=== PATIENT | female | born 1940 | race Caucasian/White ===

== ENCOUNTER → 2023-05-08 13:54 | Outpatient (REF) | payer OTHER, SELFPAY | LOC: DHCBC HW 13:54 | PROVIDERS: ATTENDING PHYSICIAN Internal Medicine; FAMILY PHYSICIAN Internal Medicine | DX: I10 Essential (primary) hypertension (principal); R60.9 Edema, unspecified | CPT/HCPCS: 93306 ==

== ENCOUNTER → 2023-06-09 10:08 | Outpatient (REF) | payer OTHER, SELFPAY ==
[2023-06-09 12:26] LABS: % Basophils 0.2 % (0-2); % Eosinophils 1.4 % (0-6); % Immature Granulocytes 0.6 % (0-0.5); % Lymphocytes 10.5 % (20.5-51.1); % Monocytes 6.9 % (1.7-9.3); % Neutrophils 80.4 % (42.2-75.2); Absolute Eosinophils 0.3 10^3/uL (0-0.7); Absolute Immature Granulocytes 0.1 10^3/uL (0-0.05); Absolute Monocytes 1.3 10^3/uL (0.1-0.6); Absolute Neutrophils 15.3 10^3/uL (1.4-6.5); Hematocrit 33.1 % (37.0-47.0); Hemoglobin 10.8 g/dL (12.0-16.0); Mean Corp Hgb Conc. 32.6 g/dL (33.0-37.0); Mean Corpuscular Hgb 32.5 pg (27.0-31.0); Mean Corpuscular Volume 99.7 fL (81.0-99.0); Nucleated Red Blood Cells % 0 %; Platelet Count 400 10^3/uL (130-400); Red Blood Cell Count 3.32 10^6/uL (4.20-5.40); Red Cell Dist. Width 14.9 % (11.5-14.5)
[2023-06-09 12:27] LABS: ALT (SGPT) 17 U/L (0-35); AST (SGOT) 27 U/L (14-36); Albumin 4.2 g/dl (3.5-5.0); Alkaline Phosphatase 96 U/L (38-126); Blood Urea Nitrogen 18 mg/dl (7-17); Calcium 9.5 mg/dl (8.4-10.2); Carbon Dioxide 27 mmol/L (22-30); Chloride 99 mmol/L (98-107); Glucose 98 mg/dl (70-99); HDL Cholesterol 82 mg/dl; LDL Cholesterol, Calculated 65 mg/dl; Potassium 4.3 mmol/L (3.5-5.1); Sodium 135 mmol/L (135-145); Total Bilirubin 0.6 mg/dl (0.2-1.3); Total Cholesterol 163 mg/dl (50-199); Total Protein 7.6 g/dl (6.3-8.2); Triglyceride 83 mg/dl (10-149); Very Low Density Lipoprotein 16 mg/dl (0-30); eGFR > 60.00
== END ==
LOC: HWLAB 10:08
PROVIDERS: ATTENDING PHYSICIAN Internal Medicine
DX: I10 Essential (primary) hypertension (principal); E78.5 Hyperlipidemia, unspecified; D64.9 Anemia, unspecified
CPT/HCPCS: 36415; 80053; 80061; 85025

== ENCOUNTER 2023-06-18 13:42 | Outpatient (RCR) | payer OTHER, SELFPAY | END 2023-06-18 23:59 | disposition home or self-care (01) | LOC: RPT 13:42 | PROVIDERS: ATTENDING PHYSICIAN Internal Medicine; FAMILY PHYSICIAN Internal Medicine | DX: I89.0 Lymphedema, not elsewhere classified (principal); I87.2 Venous insufficiency (chronic) (peripheral); Z73.6 Limitation of activities due to disability; M62.81 Muscle weakness (generalized); R26.81 Unsteadiness on feet; M54.50 Low back pain, unspecified | CPT/HCPCS: 97110; 97163; 97530; 97760 ==

== ENCOUNTER → 2023-07-10 11:38 | Outpatient (REF) | payer OTHER, SELFPAY ==
[2023-07-10 15:12] LABS: % Basophils 0.5 % (0-2); % Eosinophils 4.7 % (0-6); % Immature Granulocytes 0.2 % (0-0.5); % Monocytes 11.7 % (1.7-9.3); % Neutrophils 55.9 % (42.2-75.2); Absolute Eosinophils 0.4 10^3/uL (0-0.7); Absolute Lymphocytes 2.3 10^3/uL (1.2-3.4); Absolute Neutrophils 4.8 10^3/uL (1.4-6.5); Hematocrit 31.1 % (37.0-47.0); Hemoglobin 10.6 g/dL (12.0-16.0); Mean Corp Hgb Conc. 34.1 g/dL (33.0-37.0); Mean Corpuscular Hgb 32.7 pg (27.0-31.0); Mean Platelet Volume 8.9 fL (7.4-10.4); Nucleated Red Blood Cells % 0 %; Platelet Count 375 10^3/uL (130-400); Red Blood Cell Count 3.24 10^6/uL (4.20-5.40); Red Cell Dist. Width 15.2 % (11.5-14.5); White Blood Cell Count 8.6 10^3/uL (4.8-10.8)
== END ==
LOC: HWLAB 11:38
PROVIDERS: ATTENDING PHYSICIAN Internal Medicine
DX: R89.9 Unspecified abnormal finding in specimens from other organs, systems and tissues (principal)
CPT/HCPCS: 36415; 85025

== ENCOUNTER 2023-07-20 13:50 | Outpatient (RCR) | payer OTHER, SELFPAY | END 2023-07-20 23:59 | disposition home or self-care (01) | LOC: RPT 13:50 | PROVIDERS: ATTENDING PHYSICIAN Internal Medicine; FAMILY PHYSICIAN Internal Medicine | DX: I89.0 Lymphedema, not elsewhere classified (principal); I87.2 Venous insufficiency (chronic) (peripheral); Z73.6 Limitation of activities due to disability; M53.3 Sacrococcygeal disorders, not elsewhere classified; M25.571 Pain in right ankle and joints of right foot; M62.81 Muscle weakness (generalized); R26.81 Unsteadiness on feet; M54.50 Low back pain, unspecified; R29.898 Other symptoms and signs involving the musculoskeletal system | CPT/HCPCS: 97110; 97112; 97140; 97530 ==

== ENCOUNTER 2023-08-10 14:05 | Outpatient (RCR) | payer OTHER, SELFPAY | END 2023-08-10 23:59 | disposition home or self-care (01) | LOC: RPT 14:05 | PROVIDERS: ATTENDING PHYSICIAN Internal Medicine; FAMILY PHYSICIAN Internal Medicine | DX: I89.0 Lymphedema, not elsewhere classified (principal); I87.2 Venous insufficiency (chronic) (peripheral); Z73.6 Limitation of activities due to disability; M25.571 Pain in right ankle and joints of right foot; M62.81 Muscle weakness (generalized); M53.3 Sacrococcygeal disorders, not elsewhere classified; R26.81 Unsteadiness on feet; M54.50 Low back pain, unspecified; R29.898 Other symptoms and signs involving the musculoskeletal system | CPT/HCPCS: 97110; 97112; 97530 ==

== ENCOUNTER 2023-09-14 14:19 | Outpatient (RCR) | payer OTHER, SELFPAY | END 2023-09-14 23:59 | disposition home or self-care (01) | LOC: RPT 14:19 | PROVIDERS: ATTENDING PHYSICIAN Internal Medicine; FAMILY PHYSICIAN Internal Medicine | DX: I89.0 Lymphedema, not elsewhere classified (principal); I87.2 Venous insufficiency (chronic) (peripheral); Z73.6 Limitation of activities due to disability; M62.81 Muscle weakness (generalized); R26.81 Unsteadiness on feet; M54.50 Low back pain, unspecified | CPT/HCPCS: 97110; 97112; 97530 ==

== ENCOUNTER → 2023-10-02 10:27 | Outpatient (REF) | payer OTHER, SELFPAY ==
[2023-10-02 11:53] LABS: % Basophils 0.4 % (0-2); % Eosinophils 2.3 % (0-6); % Immature Granulocytes 0.4 % (0-0.5); % Lymphocytes 33.1 % (20.5-51.1); % Monocytes 10.8 % (1.7-9.3); Absolute Eosinophils 0.2 10^3/uL (0-0.7); Absolute Lymphocytes 3.3 10^3/uL (1.2-3.4); Absolute Monocytes 1.1 10^3/uL (0.1-0.6); Absolute Neutrophils 5.2 10^3/uL (1.4-6.5); Hematocrit 33.4 % (37.0-47.0); Hemoglobin 11.3 g/dL (12.0-16.0); Mean Corp Hgb Conc. 33.8 g/dL (33.0-37.0); Mean Corpuscular Hgb 32.2 pg (27.0-31.0); Mean Corpuscular Volume 95.2 fL (81.0-99.0); Nucleated Red Blood Cells % 0 %; Platelet Count 358 10^3/uL (130-400); Red Blood Cell Count 3.51 10^6/uL (4.20-5.40); Red Cell Dist. Width 14.7 % (11.5-14.5); White Blood Cell Count 9.8 10^3/uL (4.8-10.8)
[2023-10-02 12:11] LABS: Urine Albumin Negative (Neg - Trace); Urine Bilirubin Negative (Negative); Urine Character Slightly Cloudy (Clear); Urine Color Yellow; Urine Glucose Negative (Negative); Urine Ketone Negative (Negative); Urine Leukocyte 2+ (Negative); Urine Nitrite Negative (Negative); Urine Occult Blood Negative (Negative); Urine Specific Gravity 1.005 (<1.030); Urine Urobilinogen Negative (Neg - 1+)
[2023-10-02 12:49] LABS: Urine Squamous Cell 0-2 /LPF (Few)
[2023-10-02 12:50] LABS: Urine Bacteria Moderate (Negative); Urine Red Blood Cell 0-2 /HPF (0-2); Urine White Cell 30-40 /HPF (0-5)
[2023-10-02 13:25] LABS: ALT (SGPT) 17 U/L (0-35); AST (SGOT) 31 U/L (14-36); Albumin 4.2 g/dl (3.5-5.0); Alkaline Phosphatase 91 U/L (38-126); Blood Urea Nitrogen 17 mg/dl (7-17); Calcium 9.5 mg/dl (8.4-10.2); Carbon Dioxide 27 mmol/L (22-30); Chloride 100 mmol/L (98-107); Glucose 88 mg/dl (70-99); HDL Cholesterol 77 mg/dl; LDL Cholesterol, Calculated 88 mg/dl; Potassium 4.6 mmol/L (3.5-5.1); Sodium 135 mmol/L (135-145); Total Bilirubin 0.5 mg/dl (0.2-1.3); Total Cholesterol 180 mg/dl (50-199); Total Protein 7.1 g/dl (6.3-8.2); Triglyceride 75 mg/dl (10-149); Very Low Density Lipoprotein 15 mg/dl (0-30); eGFR > 60.00
== END ==
LOC: HWLAB 10:27
PROVIDERS: ATTENDING PHYSICIAN Internal Medicine
DX: N39.0 Urinary tract infection, site not specified (principal); I10 Essential (primary) hypertension; E78.00 Pure hypercholesterolemia, unspecified
CPT/HCPCS: 36415; 80053; 80061; 81003; 81015; 85025; 87077; 87086; 87186

== ENCOUNTER 2023-10-19 11:16 | Outpatient (RCR) | payer OTHER, SELFPAY | END 2023-10-19 23:59 | disposition home or self-care (01) | LOC: RPT 11:16 | PROVIDERS: ATTENDING PHYSICIAN Internal Medicine; FAMILY PHYSICIAN Internal Medicine | DX: I89.0 Lymphedema, not elsewhere classified (principal); I87.2 Venous insufficiency (chronic) (peripheral); M53.3 Sacrococcygeal disorders, not elsewhere classified; Z73.6 Limitation of activities due to disability; M25.571 Pain in right ankle and joints of right foot; R29.898 Other symptoms and signs involving the musculoskeletal system; R26.81 Unsteadiness on feet; M62.81 Muscle weakness (generalized); M54.50 Low back pain, unspecified | CPT/HCPCS: 97110; 97112; 97530 ==

== ENCOUNTER 2023-11-11 13:58 | Outpatient (RCR) | payer OTHER, SELFPAY | END 2023-11-11 23:59 | disposition home or self-care (01) | LOC: RPT 13:58 | PROVIDERS: ATTENDING PHYSICIAN Internal Medicine; FAMILY PHYSICIAN Internal Medicine | DX: I89.0 Lymphedema, not elsewhere classified (principal); I87.2 Venous insufficiency (chronic) (peripheral); M53.3 Sacrococcygeal disorders, not elsewhere classified; Z73.6 Limitation of activities due to disability; M62.81 Muscle weakness (generalized); M25.571 Pain in right ankle and joints of right foot; R29.898 Other symptoms and signs involving the musculoskeletal system; R26.81 Unsteadiness on feet; M54.50 Low back pain, unspecified | CPT/HCPCS: 97110; 97112; 97530 ==

== ENCOUNTER 2023-11-30 14:07 | Outpatient (RCR) | payer OTHER, SELFPAY | END 2023-12-01 10:29 | disposition home or self-care (01) | LOC: RPT 14:07 | PROVIDERS: ATTENDING PHYSICIAN Internal Medicine; FAMILY PHYSICIAN Internal Medicine | DX: I89.0 Lymphedema, not elsewhere classified (principal); I87.2 Venous insufficiency (chronic) (peripheral); Z73.6 Limitation of activities due to disability; M53.3 Sacrococcygeal disorders, not elsewhere classified; M62.81 Muscle weakness (generalized); M25.571 Pain in right ankle and joints of right foot; R29.898 Other symptoms and signs involving the musculoskeletal system; R26.81 Unsteadiness on feet; M54.50 Low back pain, unspecified | CPT/HCPCS: 97110; 97112; 97530 ==

== ENCOUNTER → 2024-01-07 18:11 | Outpatient (REF) | payer OTHER, SELFPAY | LOC: RAD 18:11 | PROVIDERS: ATTENDING PHYSICIAN Nurse Practitioner Adult Health; FAMILY PHYSICIAN Internal Medicine | DX: J47.9 Bronchiectasis, uncomplicated (principal); R05.1 Acute cough | CPT/HCPCS: 71046 ==

== ENCOUNTER → 2024-02-22 11:07 | Outpatient (REF) | payer OTHER, SELFPAY ==
[2024-02-22 16:28] LABS: % Basophils 0.6 % (0-2); % Eosinophils 2.4 % (0-6); % Immature Granulocytes 0.5 % (0-0.5); % Lymphocytes 29.2 % (20.5-51.1); % Monocytes 11.3 % (1.7-9.3); Absolute Basophils 0.1 10^3/uL (0-0.2); Absolute Eosinophils 0.2 10^3/uL (0-0.7); Absolute Lymphocytes 2.4 10^3/uL (1.2-3.4); Absolute Monocytes 0.9 10^3/uL (0.1-0.6); Absolute Neutrophils 4.5 10^3/uL (1.4-6.5); Hematocrit 35.4 % (37.0-47.0); Hemoglobin 11.1 g/dL (12.0-16.0); Mean Corp Hgb Conc. 31.4 g/dL (33.0-37.0); Mean Corpuscular Hgb 31.7 pg (27.0-31.0); Mean Corpuscular Volume 101.1 fL (81.0-99.0); Mean Platelet Volume 9.2 fL (7.4-10.4); Nucleated Red Blood Cells % 0 %; Platelet Count 358 10^3/uL (130-400); Red Cell Dist. Width 14.5 % (11.5-14.5)
[2024-02-22 16:33] LABS: ALT (SGPT) 18 U/L (0-35); AST (SGOT) 30 U/L (14-36); Albumin 4.4 g/dl (3.5-5.0); Alkaline Phosphatase 83 U/L (38-126); Blood Urea Nitrogen 17 mg/dl (7-17); Calcium 9.5 mg/dl (8.4-10.2); Carbon Dioxide 30 mmol/L (22-30); Chloride 98 mmol/L (98-107); Glucose 94 mg/dl (70-99); HDL Cholesterol 80 mg/dl; LDL Cholesterol, Calculated 93 mg/dl; Potassium 4.5 mmol/L (3.5-5.1); Sodium 137 mmol/L (135-145); Total Bilirubin 0.5 mg/dl (0.2-1.3); Total Cholesterol 188 mg/dl (50-199); Total Protein 7.4 g/dl (6.3-8.2); Triglyceride 76 mg/dl (10-149); Very Low Density Lipoprotein 15 mg/dl (0-30); eGFR > 60.00
== END ==
LOC: HWLAB 11:07
PROVIDERS: ATTENDING PHYSICIAN Internal Medicine
DX: I10 Essential (primary) hypertension (principal); E78.00 Pure hypercholesterolemia, unspecified; R73.03 Prediabetes; I50.30 Unspecified diastolic (congestive) heart failure
CPT/HCPCS: 36415; 80053; 80061; 85025

== ENCOUNTER → 2024-06-23 11:20 | Outpatient (REF) | payer OTHER, SELFPAY ==
[2024-06-23 16:45] LABS: % Basophils 0.5 % (0-2); % Eosinophils 2.5 % (0-6); % Immature Granulocytes 0.3 % (0-0.5); % Lymphocytes 32.7 % (20.5-51.1); % Monocytes 12.6 % (1.7-9.3); % Neutrophils 51.4 % (42.2-75.2); Absolute Basophils 0.1 10^3/uL (0-0.2); Absolute Eosinophils 0.2 10^3/uL (0-0.7); Absolute Monocytes 1.2 10^3/uL (0.1-0.6); Absolute Neutrophils 4.7 10^3/uL (1.4-6.5); Hematocrit 33.6 % (37.0-47.0); Hemoglobin 11.1 g/dL (12.0-16.0); Mean Corpuscular Hgb 32.2 pg (27.0-31.0); Mean Corpuscular Volume 97.4 fL (81.0-99.0); Mean Platelet Volume 9.5 fL (7.4-10.4); Nucleated Red Blood Cells % 0 %; Platelet Count 420 10^3/uL (130-400); Red Blood Cell Count 3.45 10^6/uL (4.20-5.40); Red Cell Dist. Width 14.6 % (11.5-14.5); White Blood Cell Count 9.1 10^3/uL (4.8-10.8)
[2024-06-23 16:53] LABS: ALT (SGPT) 16 U/L (0-35); AST (SGOT) 27 U/L (14-36); Alkaline Phosphatase 91 U/L (38-126); Blood Urea Nitrogen 19 mg/dl (7-17); Calcium 9.6 mg/dl (8.4-10.2); Carbon Dioxide 28 mmol/L (22-30); Chloride 99 mmol/L (98-107); Glucose 99 mg/dl (70-99); HDL Cholesterol 74 mg/dl; LDL Cholesterol, Calculated 85 mg/dl; Potassium 4.5 mmol/L (3.5-5.1); Sodium 135 mmol/L (135-145); Total Bilirubin 0.6 mg/dl (0.2-1.3); Total Cholesterol 177 mg/dl (50-199); Total Protein 7.1 g/dl (6.3-8.2); Triglyceride 92 mg/dl (10-149); Very Low Density Lipoprotein 18 mg/dl (0-30); eGFR > 60.00
[2024-06-23 17:23] LABS: TSH Reflex To Free T4 1.11 uIU/ml (0.47-4.68)
== END ==
LOC: HWLAB 11:20
PROVIDERS: ATTENDING PHYSICIAN Internal Medicine
DX: I10 Essential (primary) hypertension (principal); R73.03 Prediabetes; Z12.11 Encounter for screening for malignant neoplasm of colon
CPT/HCPCS: 36415; 80053; 80061; 84443; 85025

== ENCOUNTER → 2024-07-25 10:24 | Outpatient (REF) | payer OTHER, SELFPAY | LOC: HWRAD 10:24 | PROVIDERS: ATTENDING PHYSICIAN Internal Medicine | DX: Z78.0 Asymptomatic menopausal state (principal) | CPT/HCPCS: 77080 ==

== ENCOUNTER 2024-09-02 12:41 | Emergency (ER) | payer OTHER, SELFPAY ==
[2024-09-02 12:44] VITALS: BP 150/92
[2024-09-02 13:15] LABS: % Basophils 0.2 % (0-2); % Eosinophils 2.4 % (0-6); % Immature Granulocytes 0.4 % (0-0.5); % Lymphocytes 22.2 % (20.5-51.1); % Neutrophils 58.8 % (42.2-75.2); Absolute Eosinophils 0.2 10^3/uL (0-0.7); Absolute Monocytes 1.5 10^3/uL (0.1-0.6); Absolute Neutrophils 5.3 10^3/uL (1.4-6.5); Hematocrit 35.9 % (37.0-47.0); Hemoglobin 11.8 g/dL (12.0-16.0); Mean Corp Hgb Conc. 32.9 g/dL (33.0-37.0); Mean Corpuscular Hgb 31.7 pg (27.0-31.0); Mean Corpuscular Volume 96.5 fL (81.0-99.0); Mean Platelet Volume 8.7 fL (7.4-10.4); Nucleated Red Blood Cells % 0 %; Platelet Count 384 10^3/uL (130-400); Red Blood Cell Count 3.72 10^6/uL (4.20-5.40); Red Cell Dist. Width 15.3 % (11.5-14.5); White Blood Cell Count 9.1 10^3/uL (4.8-10.8)
[2024-09-02 13:27] LABS: ALT (SGPT) 19 U/L (0-35); AST (SGOT) 36 U/L (14-36); Albumin 4.2 g/dl (3.5-5.0); Alkaline Phosphatase 81 U/L (38-126); Blood Urea Nitrogen 11 mg/dl (7-17); Calcium 9.3 mg/dl (8.4-10.2); Carbon Dioxide 25 mmol/L (22-30); Chloride 104 mmol/L (98-107); Glucose 112 mg/dl (70-99); Potassium 4.2 mmol/L (3.5-5.1); Sodium 137 mmol/L (135-145); Total Bilirubin 0.4 mg/dl (0.2-1.3); Total Protein 7.4 g/dl (6.3-8.2); eGFR > 60.00
[2024-09-02 13:39] LABS: Troponin I < 0.012 ng/ml
--- NOTE | 2024-09-02 14:55 | ED.GENMED ---
History of Present Illness
General
Chief Complaint: Breathing Problem
Time Seen by Provider: 09/02/24 14:55
History of Present Illness
History of Present Illness:
REVIEW OF OLD RECORDS
- The patient has history of being on CPAP, history of A-fib and CHF. The patient has been seen by physical therapy related to lymphedema as of November 2023. 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
pacemaker was placed at that time. History of Takotsubo cardiomyopathy. And has history of sleep apnea on CPAP.
Note:
CHIEF COMPLAINT(S)
Shortness of breath and vomiting.
HISTORY OF PRESENT ILLNESS
The patient is an 84-year-old female with a history of bronchiectasis for four years, presenting with shortness of breath and vomiting. The symptoms began this morning when the patient was climbing stairs at home, resulting in significant
breathlessness. She also experienced vomiting at the same time. The patients family member noted that she was short of breath and sweating profusely. The patient reported no chest pain or tightness but did mention experiencing a dry cough.
The patient has a history of gastrointestinal upset, including frequent diarrhea, and has been self-medicating with Imodium for over six months. She has been seen previously by her primary care physician, who prescribed antibiotics (Augmentin) and
two courses of prednisone, which seemed to offer temporary relief. There is a pending follow-up appointment with her senior account director later this month.
On examination, there was a subtle wheeze and crackling noise auscultated on the right side of the chest. A chest x-ray was performed, and subtle changes were noted on the right side. Blood work did not show significant abnormalities, specifically,
there were no overt signs of congestive heart failure.
There is no reported weight gain or significant swelling in the legs, although the patient mentions recent lymphedema. The patient has a nebulizer at home, which is used with saline, and she possesses an inhaler. Her oxygen saturation was measured
at 96-97%.
SOCIAL DETERMINANTS AFFECTING HEALTH
The patient is reliant on family support for monitoring her health condition and appointments.
REVIEW OF SYSTEMS
- Respiratory: Shortness of breath, dry cough, wheezing on the right side.
- Gastrointestinal: Frequent diarrhea, vomiting.
- Skin: Profuse sweating.
- Cardiovascular: No chest pain or tightness reported.
PHYSICAL EXAM
- Respiratory: Wheeze and crackling noise on the right side.
- General: Well appearing in no distress
- HEENT: Moist oral mucosa
- Cardiovascular: No murmurs, normal heart rate, regular rhythm, No chest wall tenderness
- Abdomen: Soft with no peritoneal signs, no tenderness
- Neurologic: Excellent strength all extremities, no coordination deficits
- Psychiatric: Appropriate mental status, normal insight and judgement
- Extremities: Nontender, no edema, moves all extremities equally
- Skin: No rash, no lesions
ACUTE
- Shortness of breath
- Vomiting
- Wheezing
CHRONIC
- Bronchiectasis
- Gastrointestinal disturbances (diarrhea)
PLAN
- Administer DuoNeb (albuterol with ipratropium) nebulizer treatment.
- Provide intravenous fluids to address potential dehydration.
- Administer antiemetic for nausea.
- Await radiologists review of the chest x-ray for further evaluation.
DIFFERENTIAL DIAGNOSIS
The Differential Diagnosis includes, in no particular order and is not limited to:
1. Pneumonia
2. Chronic Obstructive Pulmonary Disease exacerbation
3. Congestive heart failure
4. Pulmonary embolism
5. Gastroesophageal reflux disease
6. Anxiety-induced hyperventilation
7. Bronchitis
8. Asthma exacerbation
9. Viral upper respiratory tract infection
10. Hyperthyroidism
RADIOLOGY
- Questionable density at the right base (radiologist suspect scarring), device noted left anterior chest wall
EKG
- Sinus 87, left axis deviation, borderline LVH/IVCD
LABS
- White count normal, hemoglobin 11.8, chemistries normal, troponin less than 0.012, BNP 682 which is similar to level in 2020
UPDATE
09/02/24 - 16:43
Zofran for nausea is in effect, and patients hydration is being ensured, though no alarming results from blood work were noted. An X-ray was reviewed; possible suspect area was identified but thought to be scarring or bronchiectasis-related changes
by the radiologist. Saline nebulizer treatments are ongoing for preventative management due to seasonal allergies and postnasal drip. Despite a previous wheeze in the right lung, current oxygen saturation remains stable in the high 90s, negating
immediate oxygen therapy. Concerns about past severe drops in oxygen levels, high flow oxygen use, and complications treated with prednisone were noted by family, coupled with past ICU treatments possibly linked to undiagnosed flu leading to
pneumonia. The patient exhibits unexplained ongoing anemia but not severe enough for transfusion, coupled with persistent cold sensitivity and fatigue, deviating from her usual high energy levels. Lightheadedness noted upon mild exertion, with
transient drop in pulse oximeter reading, dropped to around 91% though stabilized at 95%. Patient is capable of short ambulation and prefers assistance to the bathroom. Discussion on possible hospital stay due to unresolved symptoms is underway.
09/02/24 - 20:[address] scan results confirmed no presence of a blood clot, but indicated inflammatory and scar-like changes consistent with bronchiectasis, without any acute concerns. Scans also suggested potential enteritis, although no bowel obstruction or
abscess was observed. Despite no acute finding mandating hospitalization, the patient showed concern about going home, possibly influenced by previous family experiences. Oxygen levels with exertion were marginally acceptable at 94%, and there was
discussion of trying nebulized albuterol to aid breathing, as previous steroids had ceased two weeks prior. The option to continue oral antibiotics was discussed but deferred, favoring management with albuterol therapy and follow-up with a pulmonary
specialist.
I had the patient walk in the emergency department and I walked with her. Her sats after exertion remained around 93% on room air and she overall felt improved compared to prior. She no longer feels lightheaded and comfortable with going home.
Past History
Past History
ED Past Medical History: CHF (Cardiomyopathy), GERD, HTN, Hypercholesterolemia, Other (Bronchiolitis, Cardiomyopathy, SVT, Twisted Esophagus,) and Other (sleep apnea, CPAP)
ED Past Surgical History: None
Social History
Tobacco: Non-smoker
Alcohol: Occasional
Drug: None
Personal:
Living: alone
Employment: Retired
Family History
Family History: Other
Phy Exam
Physical Exam
Physical Exam:
See HPI
Scores
Heart Failure Risk
Heart Failure Risk Score: Not Applicable
Course
Orders/Labs/Results
Orders:
Orders
09/02/24 12:42
Electrocardiogram (*1) Urgent
Reason for Study: Shortness of Breath
EKG- Treatment ONCE
09/02/24 12:57
Complete Blood Count/With Diff Urgent
Comprehensive Metabolic Panel Urgent
NT-proBNP Urgent
Comment: ADD ON
Troponin I Urgent
09/02/24 14:58
Add On- LAB Urgent
Tests Added?: bnp
CR Chest - 2 Views Urgent
Comment:
Reason For Exam: sob
09/02/24 15:49
0.9% Sodium Chloride 500 ml [Nss] 500 ml IV BOLUS
Ipratropium/Albuterol Sulfate [Duoneb] 3 ml INH R NOW STA
Ondansetron Injectable [Zofran] 4 mg IV NOW STA
09/02/24 16:43
CT Pe/abd/pel W Urgent
Reason For Exam: hypoxia, h/o bronchietasis; PÉREZ
09/02/24 18:52
Acetaminophen [Tylenol] 1,000 mg .ROUTE .STK-MED ONE
09/02/24 18:54
Acetaminophen [Tylenol] 1,000 mg PO NOW STA
Abnormal Lab Results
09/02/24
12:57
RBC 3.72 L 10^6/uL
(4.20-5.40)
Hgb 11.8 L g/dL
(12.0-16.0)
Hct 35.9 L %
(37.0-47.0)
MCH 31.7 H pg
(27.0-31.0)
MCHC 32.9 L g/dL
(33.0-37.0)
RDW 15.3 H %
(11.5-14.5)
Absolute Monos (auto) 1.5 H 10^3/uL
(0.1-0.6)
Monocytes % 16.0 H %
(1.7-9.3)
Glucose 112 H mg/dl
(70-99)
09/02/24 12:57
09/02/24 12:57
Vital Signs
Initial and Last Documented VS:
Initial Vital Signs
Temp Pulse Resp BP Pulse Ox
36.7 C 97 16 150/92 98
09/02/24 12:44 09/02/24 12:44 09/02/24 12:44 09/02/24 12:44 09/02/24 12:44
Last Documented Vital Signs
Temp Pulse Resp BP Pulse Ox
36.7 C 88 19 138/68 91
09/02/24 12:44 09/02/24 18:58 09/02/24 18:58 09/02/24 18:58 09/02/24 18:58
*Critical Care Note
Total Time (30-74mins, 75-104mins- exclusive of procedures): Not Applicable
ED Attending Note
-
Portions of this chart may have been created with voice recognition software.� Occasional wrong word or��sound alike� substitutions may have occurred due to the inherent limitations of voice recognition software.
Discharge Plan
Departure
Patient Disposition: Home (Routine Discharge)
Date of Disposition: 09/02/24
Time of Disposition: 20:02
Patient with high blood pressure during this ER visit?: Yes
Discharge Problem:
Bronchiectasis
Instructions: Shortness of Breath (Dyspnea) (DC), BLOOD PRESSURE
Prescriptions:
New
albuterol sulfate 2.5 mg/0.5 mL solution for nebulization
2.5 mg inhalation Q6H PRN (Reason: bronchospasm) Qty: 30 0RF
No Action
atorvastatin 10 MG tablet
10 mg PO HS
temazepam 7.5 MG capsule
7.5 mg PO HS
Patient Comments:
10/15/2020: last filled 08/12/20, 90 tabs for 90 days from [facility]
duloxetine 60 MG capsule,delayed release(DR/EC)
60 mg PO DAILY
calcium carbonate-vitamin D3 [Oyster Shell Calcium-Vit D3] 500 MG tablet
1 tab PO BID
cetirizine 10 MG tablet
10 mg PO HSPRN PRN (Reason: alternating w/ Venessa)
famotidine 40 MG tablet
40 mg PO HS
fexofenadine [Venessa] 180 MG tablet
180 mg PO HSPRN PRN (Reason: alternating w/ Zyrtec)
fluticasone propionate 1 SPRAY spray,suspension
1 spray intranasal DAILY
loratadine 10 MG tablet
10 mg PO DAILY
multivitamin with folic acid [Tab-A-Liang] 1 TABLET tablet
1 tab PO DAILY
Cranberry
2 tab PO DAILY
levalbuterol tartrate 1 PUFF HFA aerosol inhaler
1 puff inhalation R Q4HPRN PRN (Reason: sob/cough)
cefdinir [Omnicef] 300 MG capsule
300 mg PO BID Qty: 6 0RF
carvedilol 6.25 MG tablet
6.25 mg PO BID Qty: 1 0RF
diltiazem HCl 180 MG capsule,extended release 24hr
180 mg PO BID Qty: 1 0RF
cephalexin 500 MG capsule
500 mg PO BID Qty: 10 0RF
ondansetron 4 mg Tablet,Disintegrating
4 mg PO BIDPRN PRN (Reason: nausea/vomiting) Qty: 10 0RF
Referrals:
Amber Zapata MD [Family Provider, Internal Medicine]
Activity Restrictions/Additional Instructions:
Patient follow-up with your doctors at [place]. Your white blood cell count is normal. Basic blood work was normal. Troponin level (test for heart attack was negative). BNP level (test for heart failure was very similar to prior). CAT scan of the
chest shows no sign of blood clot:
CTA Chest: The central pulmonary arteries are well-opacified and demonstrate no filling defects to suggest pulmonary embolism. The thoracic aorta is normal in caliber and homogeneous in appearance with some calcific atherosclerotic changes. The
heart is overall mildly enlarged, unchanged, especially the left atrium. There is some patchy opacity in the right upper lobe likely some scarring as a sequela of prior right upper lobe pneumonia. There is some additional thickened linear opacity in
the posterior left upper lobe likely scarring, sequela of prior pneumonia. Some small volume peripheral opacity in the lateral segment of the right middle lobe is also likely scarring, sequela of prior pneumonia. Overall prominent interstitial
markings are noted widespread bilaterally, predominantly peripherally. Some changes of bronchiectasis are noted. There is no new focal parenchymal consolidation, pneumothorax, pleural effusion or pericardial effusion. There is no pneumothorax,
pleural effusion or pericardial effusion. There is no significant hilar, mediastinal or axillary lymphadenopathy. Degenerative changes are seen within the thoracic spine.
ABDOMEN:. Gallbladder is somewhat prominent in size without discrete focal intrinsic abnormality and there are no findings to suggest biliary tract dilatation. There is no focal intrinsic abnormality of the liver, spleen, pancreas or adrenal glands.
There is a subcentimeter low-attenuation lateral left renal lesion too small to characterize. Renal excretion is symmetric. Evaluation of the intestinal tract is markedly limited without oral contrast, without intestinal obstruction or free air.
Some colonic diverticulosis is again noted. There is some fluid-filled nondistended loops of small bowel. No right lower quadrant inflammatory changes are seen. The abdominal aorta is normal in caliber with calcific atherosclerotic changes. There is
no retroperitoneal lymphadenopathy. There are degenerative changes within the lumbar spine.
PELVIS: Pelvic pessary is noted in position. No gross focal abnormality of the incompletely distended urinary bladder is seen. There is no true pelvis free fluid or significant lymphadenopathy. Degenerative changes are seen particularly about both
hips.
Interventions
Interventions:
*Risk Screen - Suicide Last Done: 09/02/24 12:44
*General Assessment Last Done: 09/02/24 16:41
*Neglect/Abuse Screening Last Done: 09/02/24 12:44
*ED- Fall Risk Assessment Last Done: 09/02/24 16:41
*ED COVID-19 Vaccine History Last Done: 09/02/24 16:41
ED- Cardiac Assessment Last Done: 09/02/24 18:34
ED- Pulmonary Assessment Last Done: 09/02/24 18:35
Discharge Date and Time
Print Language: SINHALA
[2024-09-02 15:23] LABS: NT-proBNP 682 pg/ml
[2024-09-02 16:05] VITALS: BP 133/73; BMI 25.8
[2024-09-02] MEDS: ZOFRAN 4 MG IV (16:13)
[2024-09-02] MEDS: NSS 500 IV (16:13)
[2024-09-02] MEDS: DUONEB 3 ML INH (16:14)
[2024-09-02] MEDS: TYLENOL 1000 MG PO (18:54)
[2024-09-02 18:58] VITALS: BP 138/68
[2024-09-02 19:00] VITALS: BP 137/66
== END 2024-09-02 20:15 | disposition home or self-care (01) ==
LOC: EMR 12:41
PROVIDERS: Student in an Organized Health Care Education/Training Program; EMERGENCY PHYSICIAN Emergency Medicine; FAMILY PHYSICIAN Internal Medicine
DX: J47.9 Bronchiectasis, uncomplicated (principal); I11.0 Hypertensive heart disease with heart failure; I50.9 Heart failure, unspecified; I48.91 Unspecified atrial fibrillation; G47.30 Sleep apnea, unspecified
CPT/HCPCS: 99285; 96374; 96361; 94640; 71046; 71275; 74177; 80053; 83880; 84484; 85025; 93005; Q9967

== ENCOUNTER → 2024-10-24 11:08 | Outpatient (REF) | payer OTHER, SELFPAY ==
[2024-10-24 15:58] LABS: Urine Character Clear (Clear)
[2024-10-24 16:00] LABS: Hematocrit 33.9 % (37.0-47.0); Hemoglobin 10.9 g/dL (12.0-16.0); Mean Corp Hgb Conc. 32.2 g/dL (33.0-37.0); Mean Corpuscular Volume 96.9 fL (81.0-99.0); Nucleated Red Blood Cells % 0 %; Platelet Count 416 10^3/uL (130-400); Red Cell Dist. Width 14.3 % (11.5-14.5)
[2024-10-24 16:05] LABS: Urine Red Blood Cell 0-2 /HPF (0-2); Urine Squamous Cell 0-2 /LPF (Few); Urine White Cell 30-40 /HPF (0-5)
[2024-10-24 16:12] LABS: ALT (SGPT) 15 U/L (0-35); AST (SGOT) 26 U/L (14-36); Albumin 4.1 g/dl (3.5-5.0); Alkaline Phosphatase 86 U/L (38-126); Blood Urea Nitrogen 21 mg/dl (7-17); Calcium 9.5 mg/dl (8.4-10.2); Carbon Dioxide 25 mmol/L (22-30); Chloride 101 mmol/L (98-107); Glucose 97 mg/dl (70-99); HDL Cholesterol 62 mg/dl; LDL Cholesterol, Calculated 101 mg/dl; Potassium 4.3 mmol/L (3.5-5.1); Sodium 134 mmol/L (135-145); Total Protein 7.3 g/dl (6.3-8.2); Very Low Density Lipoprotein 19 mg/dl (0-30); eGFR > 60.00
== END ==
LOC: HWLAB 11:08
PROVIDERS: ATTENDING PHYSICIAN Internal Medicine
DX: R39.9 Unspecified symptoms and signs involving the genitourinary system (principal); I10 Essential (primary) hypertension; E78.5 Hyperlipidemia, unspecified; D64.9 Anemia, unspecified
CPT/HCPCS: 36415; 80053; 80061; 81003; 81015; 85025; 87086; 87088; 87186

== ENCOUNTER → 2024-12-26 13:23 | Outpatient (REF) | payer OTHER, SELFPAY ==
[2024-12-26 14:27] LABS: Hematocrit 33.1 % (37.0-47.0); Hemoglobin 10.6 g/dL (12.0-16.0); Mean Corp Hgb Conc. 32.0 g/dL (33.0-37.0); Mean Corpuscular Volume 97.4 fL (81.0-99.0); Nucleated Red Blood Cells % 0 %; Platelet Count 381 10^3/uL (130-400); Red Cell Dist. Width 14.6 % (11.5-14.5)
[2024-12-26 15:19] LABS: ALT (SGPT) 17 U/L (0-35); AST (SGOT) 27 U/L (14-36); Albumin 4.2 g/dl (3.5-5.0); Alkaline Phosphatase 89 U/L (38-126); Blood Urea Nitrogen 13 mg/dl (7-17); Calcium 8.9 mg/dl (8.4-10.2); Carbon Dioxide 27 mmol/L (22-30); Chloride 99 mmol/L (98-107); Glucose 94 mg/dl (70-99); Potassium 4.4 mmol/L (3.5-5.1); Sodium 132 mmol/L (135-145); Total Protein 7.1 g/dl (6.3-8.2); eGFR > 60.00
[2024-12-26 15:25] LABS: C-Reactive Protein 16.60 mg/L (0.0-10.00)
[2024-12-26 17:57] LABS: Rheumatoid Agglutinin Less Than 10 IU (<10 IU)
== END ==
LOC: REG 13:23
PROVIDERS: ATTENDING PHYSICIAN Internal Medicine; FAMILY PHYSICIAN Internal Medicine; OTHER PHYSICIAN Internal Medicine
DX: M15.9 Polyosteoarthritis, unspecified (principal); M25.50 Pain in unspecified joint; M25.60 Stiffness of unspecified joint, not elsewhere classified; M79.7 Fibromyalgia; K52.9 Noninfective gastroenteritis and colitis, unspecified
CPT/HCPCS: 36415; 80053; 83013; 83993; 84443; 85025; 85652; 86140; 86200; 86430; 87045; 87046; 87324; 87328; 87329; 87427; 87449; 89055

== ENCOUNTER → 2025-01-27 11:07 | Outpatient (REF) | payer OTHER, SELFPAY | LOC: HWRCS 11:07 | PROVIDERS: ATTENDING PHYSICIAN Nurse Practitioner; FAMILY PHYSICIAN Internal Medicine | DX: R06.09 Other forms of dyspnea (principal) | CPT/HCPCS: 93306 ==

== ENCOUNTER 2025-02-08 06:34 | Outpatient (RCR) | payer OTHER, SELFPAY | END 2025-02-08 23:59 | disposition home or self-care (01) | LOC: RPT 06:34 | PROVIDERS: ATTENDING PHYSICIAN Internal Medicine; FAMILY PHYSICIAN Internal Medicine | DX: M62.89 Other specified disorders of muscle (principal); R15.2 Fecal urgency; R15.9 Full incontinence of feces; N39.3 Stress incontinence (female) (male); Z73.6 Limitation of activities due to disability; M62.81 Muscle weakness (generalized); N81.4 Uterovaginal prolapse, unspecified; R26.89 Other abnormalities of gait and mobility | CPT/HCPCS: 97163; 97530 ==

== ENCOUNTER 2025-02-18 00:41 | Inpatient (IN) | payer OTHER, SELFPAY ==
[2025-02-17 16:40] VITALS: BP 133/64
[2025-02-17 16:57] LABS: Hematocrit 29.9 % (37.0-47.0); Hemoglobin 10.2 g/dL (12.0-16.0); Mean Corp Hgb Conc. 34.1 g/dL (33.0-37.0); Mean Corpuscular Volume 92.6 fL (81.0-99.0); Nucleated Red Blood Cells % 0 %; Platelet Count 367 10^3/uL (130-400); Red Cell Dist. Width 14.6 % (11.5-14.5)
[2025-02-17 17:24] LABS: ALT (SGPT) 44 U/L (0-35); AST (SGOT) 51 U/L (14-36); Albumin 3.5 g/dl (3.5-5.0); Alkaline Phosphatase 143 U/L (38-126); Blood Urea Nitrogen 17 mg/dl (7-17); Calcium 8.4 mg/dl (8.4-10.2); Carbon Dioxide 23 mmol/L (22-30); Chloride 94 mmol/L (98-107); Glucose 199 mg/dl (70-99); Potassium 3.9 mmol/L (3.5-5.1); Sodium 125 mmol/L (135-145); Total Protein 6.8 g/dl (6.3-8.2); eGFR > 60.00
[2025-02-17 19:03] VITALS: BP 124/84; BMI 25.1
[2025-02-17 20:00] VITALS: BP 118/62
[2025-02-17] MEDS: DUONEB 3 ML INH ×2 (20:31→23:35)
[2025-02-17] MEDS: DECADRON 10 MG IV (20:41)
[2025-02-17] MEDS: ZITHROMAX 500 MG PO (20:41)
[2025-02-17 21:00] VITALS: BP 137/72
[2025-02-17] MEDS: ZOFRAN 4 MG IV (21:13)
[2025-02-17 22:00] VITALS: BP 123/71
--- NOTE | 2025-02-17 22:25 | ED.GENMED ---
History of Present Illness
General
Chief Complaint: Breathing Problem
Source: patient
Exam Limitations: none
Time Seen by Provider: 02/17/25 19:37
Nursing documentation reviewed up to this point in time: agreed with
History of Present Illness
History of Present Illness:
84-year-old female past medical history of A-fib, cardiomyopathy, heart failure, asthma bronchiectasis presenting to the emergency department today with concerns of worsening cough shortness of breath over the past 4 days or so. Started with upper
respiratory symptoms that seem to be consistent with a virus including nasal congestion cough now mainly coughing and shortness of breath over the past day or so. Was started on Augmentin a few days ago by her leather parts matcher. The patient is on
prednisone 10 mg daily for preventative treatment. Denies any significant chest pain no nausea vomiting. Denies any fevers.
Past History
Past History
ED Past Medical History: CHF (Cardiomyopathy), GERD, HTN, Hypercholesterolemia, Other (Bronchiolitis, Cardiomyopathy, SVT, Twisted Esophagus,) and Other (sleep apnea, CPAP)
ED Past Surgical History: None
Social History
Tobacco: Non-smoker
Alcohol: Occasional
Drug: None
Personal:
Living: alone
Employment: Retired
Family History
Family History: Other
Review of Systems
Review of Systems
Allergies reviewed?: Yes
All Other Systems: ROS reviewed and negative except as documented in HPI and ROS
Phy Exam
Physical Exam
Physical Exam:
GENERAL: Alert , in no apparent distress
EYE: pupils equal and reactive
NECK: Supple, no significant adenopathy.
ENT: o/p clr, mmm.
CARDIAC: Regular rate and rhythm .
LUNGS: Inspiratory and expiratory wheeze diffusely.
ABDOMEN: Soft, without focal tenderness, no r/g, no cvat
NEUROLOGICAL: Alert and oriented, no focal neuro deficits
SKIN: Warm and dry, skin intact.
MUSCULOSKELETAL: No edema, well perfused.
PSYCH: Normal and appropriate interaction.
Scores
Heart Failure Risk
Heart Failure Risk Score: Not Applicable
Course
Orders/Labs/Results
Orders:
Orders
02/17/25 16:45
CR Chest - 2 Views Urgent
Comment:
Reason For Exam: respiratory distress
02/17/25 16:50
Complete Blood Count/With Diff Urgent
Comprehensive Metabolic Panel Urgent
02/17/25 20:28
Ipratropium/Albuterol Sulfate [Duoneb] 3 ml .ROUTE .STK-MED ONE
02/17/25 20:29
Azithromycin [Zithromax] 500 mg PO NOW STA
Dexamethasone Sod Phosphate [Decadron] 10 mg IV NOW STA
Ipratropium/Albuterol Sulfate [Duoneb] 3 ml INH R NOW ONE
02/17/25 21:09
Ondansetron Injectable [Zofran] 4 mg .ROUTE .STK-MED ONE
02/17/25 21:13
Ondansetron Injectable [Zofran] 4 mg IV NOW STA
02/17/25 22:19
0.9% Sodium Chloride 1000 ml [Nss] 1,000 ml IV BOLUS
02/17/25 23:26
Ipratropium/Albuterol Sulfate [Duoneb] 3 ml INH R NOW ONE
Abnormal Lab Results
02/17/25
16:50
WBC 17.2 H 10^3/uL
(4.8-10.8)
RBC 3.23 L 10^6/uL
(4.20-5.40)
Hgb 10.2 L g/dL
(12.0-16.0)
Hct 29.9 L %
(37.0-47.0)
MCH 31.6 H pg
(27.0-31.0)
RDW 14.6 H %
(11.5-14.5)
Abs Immat Gran (auto) 0.1 H 10^3/uL
(0-0.05)
Absolute Neuts (auto) 15.0 H 10^3/uL
(1.4-6.5)
Absolute Lymphs (auto) 0.9 L 10^3/uL
(1.2-3.4)
Absolute Monos (auto) 1.1 H 10^3/uL
(0.1-0.6)
Immature Gran % 0.7 H %
(0-0.5)
Neutrophils % 87.3 H %
(42.2-75.2)
Lymphocytes % 5.2 L %
(20.5-51.1)
Sodium 125 L mmol/L
(135-145)
Chloride 94 L mmol/L
(98-107)
Glucose 199 H mg/dl
(70-99)
AST 51 H U/L
(14-36)
ALT 44 H U/L
(0-35)
Alkaline Phosphatase 143 H U/L
(38-126)
02/17/25 16:50
02/17/25 16:50
Vital Signs
Initial and Last Documented VS:
Initial Vital Signs
Temp Pulse Resp BP Pulse Ox
97.8 F 79 18 133/64 94
02/17/25 16:40 02/17/25 16:40 02/17/25 16:40 02/17/25 16:40 02/17/25 16:40
Last Documented Vital Signs
Temp Pulse Resp BP Pulse Ox
97.8 F 79 28 111/56 94
02/17/25 16:40 02/17/25 23:00 02/17/25 23:00 02/17/25 23:00 02/17/25 23:00
MDM/Problems Addressed
MDM/Problems Addressed:
84-year-old female presenting to the emergency department today with concerns of worsening cough and shortness of breath. Currently on Augmentin over the past few days prescribed by her outpatient leather parts matcher. Vital signs on arrival are normal
pulse ox was in the 80s according to family at home. White count of 17.2 sodium low at 125. X-ray without significant acute changes. Patient does have significant wheezing was started on dexamethasone as well as DuoNeb. Patient with ongoing
wheezing despite treatment. Significant shortness of breath with any ambulation plan to admit for further treatment and monitoring.
*Pulse Oximetry
SaO2: 95
Oxygen Mode of Delivery: Room air
Patient hypoxic: no (94)
*Critical Care Note
Total Time (30-74mins, 75-104mins- exclusive of procedures): Not Applicable
ED Attending Note
-
Portions of this chart may have been created with voice recognition software.� Occasional wrong word or��sound alike� substitutions may have occurred due to the inherent limitations of voice recognition software.
Discharge Plan
Departure
Patient Disposition: Admit
Date of Disposition: 02/17/25
Time of Disposition: 23:27
Admit to: Med/Surg
Admit to doctor: Andrae
Presentation/result/management discussed w/ accepting MD/DO: Hospitalist
Patient with high blood pressure during this ER visit?: No
Condition: Good
Covid-19: Not Applicable
Discharge Problem:
Wheeze, Acute hyponatremia
Prescriptions:
No Action
atorvastatin 10 MG tablet
10 mg PO HS
temazepam 7.5 MG capsule
7.5 mg PO HS
Patient Comments:
10/15/2020: last filled 08/12/20, 90 tabs for 90 days from [facility]
duloxetine 60 MG capsule,delayed release(DR/EC)
60 mg PO DAILY
calcium carbonate-vitamin D3 [Oyster Shell Calcium-Vit D3] 500 MG tablet
1 tab PO BID
cetirizine 10 MG tablet
10 mg PO HSPRN PRN (Reason: alternating w/ Venessa)
famotidine 40 MG tablet
40 mg PO HS
fexofenadine [Venessa] 180 MG tablet
180 mg PO HSPRN PRN (Reason: alternating w/ Zyrtec)
fluticasone propionate 1 SPRAY spray,suspension
1 spray intranasal DAILY
loratadine 10 MG tablet
10 mg PO DAILY
multivitamin with folic acid [Tab-A-Liang] 1 TABLET tablet
1 tab PO DAILY
Cranberry
2 tab PO DAILY
levalbuterol tartrate 1 PUFF HFA aerosol inhaler
1 puff inhalation R Q4HPRN PRN (Reason: sob/cough)
cefdinir [Omnicef] 300 MG capsule
300 mg PO BID Qty: 6 0RF
carvedilol 6.25 MG tablet
6.25 mg PO BID Qty: 1 0RF
diltiazem HCl 180 MG capsule,extended release 24hr
180 mg PO BID Qty: 1 0RF
cephalexin 500 MG capsule
500 mg PO BID Qty: 10 0RF
ondansetron 4 mg Tablet,Disintegrating
4 mg PO BIDPRN PRN (Reason: nausea/vomiting) Qty: 10 0RF
albuterol sulfate 2.5 mg/0.5 mL solution for nebulization
2.5 mg inhalation Q6H PRN (Reason: bronchospasm) Qty: 30 0RF
Referrals:
UNKNOWN - PT NOT,INTERVIEWE [Family Provider]
Interventions
Interventions:
*Risk Screen - Suicide Last Done: 02/17/25 16:40
*General Assessment Last Done: 02/17/25 19:04
*Neglect/Abuse Screening Last Done: 02/17/25 19:04
*ED- Fall Risk Assessment Last Done: 02/17/25 19:04
*ED COVID-19 Vaccine History Last Done: 02/17/25 19:04
*ED Influenza Vaccine History Last Done: 02/17/25 19:04
ED- Cardiac Assessment Last Done: 02/17/25 19:30
ED- Pulmonary Assessment Last Done: 02/17/25 19:30
Discharge Date and Time
Print Language: TURKISH
[2025-02-17 23:00] VITALS: BP 111/56
[2025-02-17] MEDS: NSS 1000 IV (23:47)
[2025-02-18] VITALS: BP 131/71
--- NOTE | 2025-02-18 00:21 | HPS.HSE ---
Family Physician
-
Family Physician: INTERVIEWE UNKNOWN - PT NOT
Chief Complaint
-
Cough, SOB
History of Present Illness
Patient is an 84y F with PMH significant for bronchiectasis / asthma, LJ and hypertension who presents to ED complaining of cough, wheezing and SOB. History obtained from patient and family at the bedside. Patient states that she started with
URI symptoms - cough, congestion, etc - on Thursday of this week. Her symptoms have steadily progressed since that time. Her daughter with whom she lives has also been sick with respiratory symptoms.
Patient spoke with her PCP and was prescribed Augmentin on 02/15. Her symptoms have not improved despite this. She is on chronic prednisone (10mg daily) and uses her Xopenex nebs at home with minimal relief.
Today her symptoms were even more severe with significant SOB and wheezing and patient presented to the ED for further evaluation. In the ED, patient received IV steroids, nebs and supplemental O2. Despite multiple treatments, she has persistent
cough and wheezing. Her ambulatory SpO2 was 89% here in the ED.
Patient reports treatment for bronchiectasis. She has prior history of severe pneumonia multiple times in the past.
Medical History
Past Medical History
Past Medical History: Reports Other
Additional Past Medical History:
Bronchiectasis
LJ on CPAP
Hypertension
Symptomatic Bradycardia
Chronic HFpEF
IBS
Anemia of Chronic Disease
Anxiety / Depression
Fibromyalgia / Rheumatologic Syndrome NOS
Past Surgical History: Reports Other
Additional Past Surgical History:
Foot Surgery
Bilateral Breast Biopsies
D&C
T&A
Tubal Ligation
PPM Placement
Carpal Tunnel Surgery
Social History
Tobacco: Non-smoker
Alcohol: None
Drug: None
Family History
Family History: Not pertinent
Allergies / Home Medications
Allergies reflects when Allergies were last updated in [facility] [employer].
Home Medications with original date entered in [facility] [facility]
Allergy/Medication List:
Allergies
Allergy/AdvReac Type Severity Reaction Status Date / Time
bacitracin (From Neosporin Allergy OINTMENT-BL Verified 02/17/25 16:40
([id number])) ISTERS
bacitracin zinc (From Allergy OINTMENT-BL Verified 02/17/25 16:40
Neosporin ([id number])) ISTERS
methylprednisolone (From Allergy DOSE Verified 02/17/25 16:40
Medrol) PACK-SEVERE
REFLUX
neomycin sulfate (From Allergy OINTMENT-BL Verified 02/17/25 16:40
Neosporin ([id number])) ISTERS
oxycodone Allergy percocet Verified 02/17/25 16:40
intolerance
polymyxin B (From Neosporin Allergy OINTMENT-BL Verified 02/17/25 16:40
([id number])) ISTERS
Sulfa (Sulfonamide Allergy Unknown Verified 02/17/25 16:40
Antibiotics)
Home Medications
atorvastatin 10 mg tablet 10 mg PO HS High cholesterol 04/19/15
duloxetine 60 mg capsule,delayed release 60 mg PO DAILY Mental Health/Anxiety 04/19/15
temazepam 7.5 mg capsule 7.5 mg PO HS Sleep 04/19/15
famotidine 40 mg tablet 40 mg PO HS Gastrointestinal issue 10/15/20
carvedilol 6.25 mg tablet 6.25 mg PO BID ##1 10/19/20
diltiazem HCl 180 mg capsule,extended release 24 hr 180 mg PO BID #1 cap 10/19/20
gabapentin 100 mg capsule 100 mg PO HS 02/18/25
levalbuterol HCl 0.63 mg/3 mL solution for nebulization 0.63 mg inhalation Q8HPRN PRN SOB 02/18/25
losartan 25 mg tablet 25 mg PO DAILY 02/18/25
prednisone 5 mg tablet 10 mg PO DAILY 02/18/25
Review of Systems
-
History Source: Patient and Family
A 12 point ROS was completed and negative except as noted: Yes
Constitutional: Reports Fever, Fatigue and Chills
EENT: Reports Sore Throat and Runny Nose
Respiratory: Reports Cough, Trouble Breathing and Other (Wheezing); Denies Hemoptysis
Cardiac: Denies Chest Pain or Palpitations
Abdomen/GI: Reports Nausea; Denies Abdominal Pain, Vomiting or Diarrhea
: Denies Dysuria, Frequency or Flank Pain
Musculoskeletal: Denies Joint Pain or Edema
Neurological: Denies Dizzy or Headache
Psych: Denies Depression or Anxiety
Physical Exam
Vital Signs
Vital Signs
Temp Pulse Resp BP Pulse Ox
97.8 F 88 17 131/71 96
02/17/25 16:40 02/18/25 00:00 02/18/25 00:00 02/18/25 00:00 02/18/25 00:00
Physical Exam
General: Other (84y F in mild distress due to cough / dyspnea. Paroxysms of cough during exam - with deep breathing, talking, etc.)
HEENT: Moist mucous membranes and PERRLA
Respiratory: Other (Diffuse insp / exp wheezing throughout.)
Cardiac: S1/S2 and Tachycardia; No Murmur
GI: Soft, Non Tender, Non Distended and Normal Bowel Sounds
Musculoskeletal: No Clubbing, No Cyanosis and Other (Trace LE edema - L > R.)
Neuro: AO x 3
Laboratory Results
-
02/17/25 16:50
02/17/25 16:50
Laboratory Results
Total Bilirubin 0.4 mg/dl (0.2-1.3) 02/17/25 16:50
AST 51 U/L (14-36) H 02/17/25 16:50
ALT 44 U/L (0-35) H 02/17/25 16:50
Alkaline Phosphatase 143 U/L (38-126) H 02/17/25 16:50
Impression/Plan
-
A/P: Patient is an 84y F with PMH significant for bronchiectasis, LJ on CPAP and hypertension who presents to ED complaining of 5 days of cough, SOB and wheezing.
Bronchiectasis
Asthmatic Bronchitis
- Admit for further evaluation and treatment.
- Patient with ambulatory hypoxemia (89% on room air), paroxysms of cough and persistent wheezing despite ED treatments.
- Continue IV steroids. Nebs. O2 support as needed.
- Cover with abx for now (ceftriaxone / doxycycline).
- Follow for clinical improvement.
- COVID / Flu added to ED work-up.
Hyponatremia
- ? SIADH secondary to pulmonary process.
- Dos not appear grossly volume overloaded by exam, CXR, etc.
- Fluid restriction and follow for improvement in Na levels.
- Check urine studies.
- Consider Nephrology evaluation if no significant improvement.
Abnormal LFTs
- Likely secondary to acute infectious process / possible viral URI.
- No abdominal pain, etc.
- Follow for changes.
LJ on CPAP
- Patient uses nasal pillows at home and declines hospital CPAP machine for tonight.
- Family will bring in own device tomorrow for use.
Chronic HFpEF
- Does not appear grossly volume overloaded by exam.
- Not maintained on chronic diuretic regimen.
- Follow I/Os, daily weights, etc.
- Echo done this month with normal LVEF and mod-severe MR and TR.
Benign Hypertension
- Stable. Continue usual home medications with holding parameters.
Symptomatic Bradycardia
- Stable s/p PPM placement.
Fibromyalgia
Rheumatologic Process
- No acute pain syndrome.
- Patient is maintained on 10mg daily of prednisone for 'inflammation'.
- Hold prednisone while on dexamethasone.
- Continue duloxetine, gabapentin.
Anemia of Chronic Disease
- Stable. Hgb is at / near known baseline.
- Follow for changes.
DVT Prophylaxis: Lovenox
Code Status: Full
[2025-02-18 00:29] LABS: COVID-19 Antigen Negative (Negative)
[2025-02-18 02:03] VITALS: BMI 24.6
[2025-02-18 02:06] VITALS: BP 130/66
[2025-02-18 02:31] VITALS: BMI 24.6
[2025-02-18] MEDS: ROCEPHIN 1000 MG IV (03:24)
[2025-02-18] MEDS: STERILE WATER FOR INJECTION 10 ML IV ×3 (03:25→17:22)
[2025-02-18] MEDS: VENTOLIN NEBULES 2.5 MG INH ×2 (03:38→14:47)
[2025-02-18] MEDS: DECADRON 4 MG IV ×3 (05:45→21:16)
[2025-02-18 07:15] VITALS: BP 135/63
[2025-02-18 07:40] LABS: Hematocrit 28.9 % (37.0-47.0); Hemoglobin 9.9 g/dL (12.0-16.0); Mean Corp Hgb Conc. 34.3 g/dL (33.0-37.0); Mean Corpuscular Volume 93.2 fL (81.0-99.0); Platelet Count 383 10^3/uL (130-400); Red Cell Dist. Width 14.6 % (11.5-14.5); Reticulocyte Count 1.4 % (0.4-2.8)
[2025-02-18 07:59] LABS: Glucose - Point of Care 170 mg/dl (70-99)
[2025-02-18 08:12] LABS: ALT (SGPT) 40 U/L (0-35); AST (SGOT) 36 U/L (14-36); Albumin 3.3 g/dl (3.5-5.0); Alkaline Phosphatase 123 U/L (38-126); Blood Urea Nitrogen 13 mg/dl (7-17); Calcium 8.5 mg/dl (8.4-10.2); Carbon Dioxide 25 mmol/L (22-30); Chloride 98 mmol/L (98-107); Estimated Creatinine Clearance 60 ml/min; Glucose 164 mg/dl (70-99); Potassium 4.2 mmol/L (3.5-5.1); Sodium 129 mmol/L (135-145); Total Protein 6.5 g/dl (6.3-8.2); eGFR > 60.00
[2025-02-18 08:23] LABS: LDH 178 U/L (120-246)
[2025-02-18] MEDS: VIBRAMYCIN 100 MG PO (08:31)
[2025-02-18] MEDS: CARDIZEM CD 180 MG PO ×2 (08:32→20:06)
[2025-02-18] MEDS: COREG 6.25 MG PO ×2 (08:32→20:07)
[2025-02-18] MEDS: CYMBALTA DELAYED RELEASE 60 MG PO (08:33)
[2025-02-18] MEDS: COZAAR 25 MG PO (08:33)
[2025-02-18] MEDS: NOVOLOG FLEXPEN-LOW RESISTANCE 1 UNITS SC ×3 (08:38→17:16)
[2025-02-18 09:22] LABS: Glycohemoglobin (HgbA1c) 6.2 % (4.0-5.9)
--- NOTE | 2025-02-18 09:23 | W.PN.HOSP.TC ---
Addendum entered and electronically signed by Chris Barroso MD 02/18/25 11:15:
#PMR
on prednisone 10mg for past 3 weeks as per will call clerk
no tenderness in temples, no double vision or jaw pain on chewing reported
Original Note:
Today's Communication/Plan
-
See PN
Assessment / Plan
Assessment / Plan
84yo F with recurrent pneumonia 2/2 bronchoectatic disease on chronic PRednisone, Hx of fungal pneumonia, SSS s/p PPM, SVT, DM, Anxiety, HLD, HTN came with 6 days of worsening cough with yellow-colored sputum. Found exacerbation of bronchoectatic
disease with COPD exacerbation and hyponatremia
Scheduled for appt in [facility] pulmonology dept with in Feb
A/P:
#Acute respiratory insufficiency 2/2 COPD exacerbation with significant bonchiectatic disease
Cefepime with high risk for pseudomonal infection pending sputum Cx
COVID-19 and Influenza PCR neg
check Legionella and S/pneumonia urinary Ag
chest PT
Encourage cough, Mucinex started, will consider hypertonic saline
Taper steroids
COnt bronchodialtors
frequent repositioning in bed to allow flem drainage
Pulm consult
Watch for hemoptysis
wean off O2
#HYponatremia
can be 2/2 pulmonary disease
resolving on mild FR
follow NA - target correction of 6mmol/24h
Urine Osm and NA
#Mild transaminitis
improving
check hepatitis panel
#Hyperthyroidism
check FT4
#DM type 2 with neuropahty
Acucchecks, Insulin SS, DM diet
#Anxiety D/O
#Essential HTN
#SSS s/p PPM
#Insomnia
#HLD
cont home meds
#Anemia
anemia w/u
follow H&H
no overt bleeding reported
check FOBT
DVT ppx lovenox
Full code
I have spent at least 59min reviewing chart, test results, communication with consultants and providing direct patient care
Anticipated Discharge: > 48 hours
Subjective/Interval History
-
Date of Service: February 18, 2025
Objective Data
-
Labs:
Laboratory Results
02/18/25
07:07
WBC 10.7
Hgb 9.9 L
Hct 28.9 L
Plt Count 383
Sodium 129 L
Potassium 4.2
Chloride 98
Carbon Dioxide 25
BUN 13
Creatinine 0.6
Glucose 164 H
Calcium 8.5
Total Bilirubin 0.2
AST 36
ALT 40 H
Alkaline Phosphatase 123
Vital Signs:
Vital Signs
Temp Pulse Resp BP Pulse Ox
97.7 F 90 16 133/63 96
02/18/25 07:15 02/18/25 08:32 02/18/25 07:15 02/18/25 08:32 02/18/25 07:15
I&O
02/17/25 02/18/25 02/19/25
06:59 06:59 06:59
Intake Total 240 / 240
Balance 240 / 240
Review of Systems
-
History Source: Patient
All other systems: Reviewed and negative
Respiratory: Reports Cough and Trouble Breathing
Physical Exam
-
General: Comfortable and Appears in Distress
HEENT: Normocephalic and Atraumatic
Respiratory: Wheezes, Rhonchi and Crackles
GI: Soft, Nontender and Nondistended
Musculoskeletal: No Clubbing, No Cyanosis and No Edema
Neuro: Awake, Alert, Oriented and AO x 3
Psych: Calm
[2025-02-18 10:20] LABS: Iron 29 ug/dl (37-170)
[2025-02-18] MEDS: MAXIPIME 2000 MG IV ×2 (10:23→17:20)
[2025-02-18] MEDS: MUCINEX 1200 MG PO ×2 (10:24→20:06)
[2025-02-18 10:30] LABS: Total Iron Binding Capacity 204 ug/dl (265-497)
[2025-02-18 10:56] LABS: Ferritin 246.0 ng/ml (11.1-264.0)
[2025-02-18 11:28] LABS: Folate 19.6 ng/ml (2.76-20); Vitamin B12 962 pg/ml (239-931)
[2025-02-18 11:49] LABS: Glucose - Point of Care 168 mg/dl (70-99)
--- NOTE | 2025-02-18 12:16 | CM ---
Patient seen bedside w/ daughter, initial assessment completed. Patient is an 84y F with PMH significant for bronchiectasis / asthma, LJ and hypertension who presents to ED complaining of cough, wheezing and SOB. Currently on 3L O2.
Patient resides alone in a single story home w/ loft, 2 steps from front and garage entrances. Patient stated her daughter lives w/ her sometimes stating her daughter has a bedroom in the loft. Patient is independent, has RW and rollator that she
doesn't use. Drives (+). Has additional shower seat in bathroom. No home O2. Current w/ OP PT twice a week. Home PT in 2019. No inpatient rehab hx.
Address, points of contact and insurance verified
PCP: Amber Zapata
Pharmacy: [facility]
Plan: Home. Will watch for needs
[2025-02-18 15:15] VITALS: BP 141/63
--- NOTE | 2025-02-18 15:40 | CON.PUL ---
Addendum entered and electronically signed by Denis Carver MD 02/19/25 00:07:
Of note, patient recently submitted a sputum AFB culture on 02/15, and smear was negative (culture showing NGTD). Test was ordered by Dr. Dinora Treviño, Pulmonary, at [facility].
Previously in 2023 she had a sputum Cx that showed heavy growth of MDR- E coli, and scant growth of fungus (no species identified). This strain was sensitive to ertapenem, imipenem, meropenem and zosyn.
Original Note:
Consultation
Consultation Request
Date/Time Consultation Requested: 02/18/2025917
Date/Time Consultation Performed: 02/18/2025954
Requesting Provider: Dr. Barroso
Performing Provider: Dr. Carver
Reason for Consultation: Bronchiectatis flare
Medical History
-
Chief Complaint: Cough, SOB and low oxygen levels
History of Present Illness:
84-year-old female with a past medical history of non-cystic fibrosis bronchiectasis, chronic HFpEF, mitral valve regurgitation, pulmonary hypertension, history of recurrent bronchitis/pneumonia, history of sleep apnea, lichen planus (affecting her
mouth), recurrent UTI, shingles (September 2019), COVID-19 (December 2021), history of enteritis, restrictive lung disease, history of ventricular tachycardia, GERD, fibromyalgia, hypercholesterolemia and hypertension who presented with low oxygen levels.
Patient had seen her PCP on 02/17 and was COVID + flu negative. Patient endorsed shortness of breath with a productive cough. She reports that she was having URI symptoms initially with cough and congestion several days prior to arrival which
progressed. Patient was recently prescribed Augmentin by her PCP on 02/15 but her symptoms did not improve despite this. She is on chronic prednisone at 10 mg daily in the setting of PMR. In the ER she was afebrile with temperature 97.8 �F, pulse
rate 79, respiratory rate 18, BP 133/64 and saturating 94% on room air. Pertinent labs showed leukocytosis to 17.2, Hb 10.2, sodium 125, chloride 94, glucose 199, slightly elevated LFTs, and urine sodium 72. Patient was flu swab negative and
COVID-19 antigen negative. CXR showed no acute cardiopulmonary process. In the ER, she was given 1 L NS 0.9%, Zofran, DuoNebs, Decadron and Zithromax. She was admitted to the hospitalist service for further care, and now pulmonary service
consulted for additional management/recommendations.
when I saw the patient, the patient's daughter, Jannet, was present at bedside. Patient is currently on 3 L/min nasal cannula. She still feels short of breath and hears herself wheezing, which does improve with nebulizers. Has trouble picking up
her phlegm, which is now white. She thinks she started to feel sick about 10 days ago. She currently denies chest pain at rest, DOWD, nausea, fevers or chills.
Of note, patient previously used to follow with our office with Dr. Jama � has not seen us since August 2018.
PMHx: Chronic HFpEF, mitral valve regurgitation, pulmonary hypertension (PASP: 40 mmHg per TTE on 01/27/2025), GERD, fibromyalgia, hypercholesterolemia, diverticulosis, history of pneumococcal pneumonia (2001), history of gastritis, IBS,
hypertension, sciatica, osteoporosis, restrictive lung disease, frequent bouts of bronchitis, history of VT, history of sleep apnea, history of lichen planus (affecting the mouth), history of recurrent UTI, eczema, history of shingles (September 2019),
history of COVID-19 (December 2021), history of bronchiectasis, history of enteritis
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
Past Medical History
Past Medical History: Other (Above as per HPI)
Past Surgical History: Other (Above as per HPI)
Social History
Tobacco: Non-smoker
Alcohol: None
Drug: None
Family History
Family History: CAD (Father), Cancer (Father: Skin cancer; mother: Colon cancer x 2 and skin cancer; maternal aunt: Melanoma), Hypertension (Father + mother) and Other (Mother: A-fib and osteoporosis)
Allergies / Home Medications
Allergies
Allergy/AdvReac Type Severity Reaction Status Date / Time
bacitracin (From Neosporin Allergy OINTMENT-BL Verified 02/17/25 16:40
([id number])) ISTERS
bacitracin zinc (From Allergy OINTMENT-BL Verified 02/17/25 16:40
Neosporin ([id number])) ISTERS
methylprednisolone (From Allergy DOSE Verified 02/17/25 16:40
Medrol) PACK-SEVERE
REFLUX
neomycin sulfate (From Allergy OINTMENT-BL Verified 02/17/25 16:40
Neosporin ([id number])) ISTERS
oxycodone Allergy percocet Verified 02/17/25 16:40
intolerance
polymyxin B (From Neosporin Allergy OINTMENT-BL Verified 02/17/25 16:40
([id number]-[id number])) ISTERS
Sulfa (Sulfonamide Allergy Unknown Verified 02/17/25 16:40
Antibiotics)
Home Medications
�Medication �Instructions �Recorded �Confirmed �Last Taken �Type
atorvastatin 10 mg tablet 10 mg PO HS High cholesterol 04/19/15 02/18/25 10/14/20 History
duloxetine 60 mg capsule,delayed 60 mg PO DAILY Mental 04/19/15 02/18/25 10/15/20 History
release Health/Anxiety
temazepam 7.5 mg capsule 7.5 mg PO HS Sleep 04/19/15 02/18/25 10/14/20 History
famotidine 40 mg tablet 40 mg PO HS Gastrointestinal issue 10/15/20 02/18/25 10/14/20 History
carvedilol 6.25 mg tablet 6.25 mg PO BID ##1 10/19/20 02/18/25 Unknown Rx
diltiazem HCl 180 mg 180 mg PO BID #1 cap 10/19/20 02/18/25 Unknown Rx
capsule,extended release 24 hr
gabapentin 100 mg capsule 100 mg PO HS 02/18/25 02/18/25 Unknown History
levalbuterol HCl 0.63 mg/3 mL 0.63 mg inhalation Q8HPRN PRN SOB 02/18/25 02/18/25 Unknown History
solution for nebulization
losartan 25 mg tablet 25 mg PO DAILY 02/18/25 02/18/25 Unknown History
prednisone 5 mg tablet 10 mg PO DAILY 02/18/25 02/18/25 Unknown History
Review of Systems
-
History Source: Patient
All other systems: Negative unless noted
Vitals / Labs / Diagnostic Testing
Vital Signs
Temp Pulse Resp BP Pulse Ox
97.7 F 90 16 133/63 96
02/18/25 07:15 02/18/25 08:32 02/18/25 07:15 02/18/25 08:32 02/18/25 07:15
Lab Data
02/18/25 07:07
02/18/25 07:07
Microbiology
02/17/25 23:39 Nasal Swab Influenza Types A & B ([facility]) - Final
Negative for Influenza A & B, NAAT
Negative results must be combined with clinical observations
and patient history.
Nucleic Acid Amplification test (NAAT)performed on the
[place] platform.
Diagnostic Testing:
Physical Exam
-
HEENT: Normocephalic and Anicteric
Cardiovascular: S1/S2 and Peripheral Edema (negative)
Respiratory: Wheeze (Bilaterally upon expiration), Rales (Bilaterally), Rhonchi (negative), Non-Labored Respirations, Other (Diminished breath sounds bilaterally with poor inspiratory effort) and Other (Conversational dyspnea)
GI: Soft, Non Distended, Non Tender and Normal Bowel Sounds
Neurology: Awake, Alert, Oriented and Tremors (negative)
Skin: Warm and Dry
General: Respiratory Distress (negative), Comfortable, Fever (negative) and Chills (negative)
Assessment
-
Assessment: 84-year-old female with a past medical history of non-cystic fibrosis bronchiectasis, chronic HFpEF, mitral valve regurgitation, pulmonary hypertension, history of recurrent bronchitis/pneumonia, history of sleep apnea, lichen planus
(affecting her mouth), recurrent UTI, shingles (September 2019), COVID-19 (December 2021), history of enteritis, restrictive lung disease, history of ventricular tachycardia, GERD, fibromyalgia, hypercholesterolemia and hypertension who presented with low
oxygen levels. Patient had seen her PCP on 02/17 and was COVID + flu negative. Patient endorsed shortness of breath with a productive cough. She reports that she was having URI symptoms initially with cough and congestion several days prior to
arrival which progressed. Patient was recently prescribed Augmentin by her PCP on 02/15 but her symptoms did not improve despite this. She is on chronic prednisone at 10 mg daily in the setting of PMR. In the ER she was afebrile with temperature
97.8 �F, pulse rate 79, respiratory rate 18, BP 133/64 and saturating 94% on room air. Pertinent labs showed leukocytosis to 17.2, Hb 10.2, sodium 125, chloride 94, glucose 199, slightly elevated LFTs, and urine sodium 72. Patient was flu swab
negative and COVID-19 antigen negative. CXR showed no acute cardiopulmonary process. In the ER, she was given 1 L NS 0.9%, Zofran, DuoNebs, Decadron and Zithromax. She was admitted to the hospitalist service for further care, and now pulmonary
service consulted for additional management/recommendations.
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
gastritis, IBS, hypertension, sciatica, osteoporosis, restrictive lung disease, frequent bouts of bronchitis, history of VT, history of sleep apnea, history of lichen planus (affecting the mouth), history of recurrent UTI, eczema, history of
shingles (September 2019), history of COVID-19 (December 2021), history of bronchiectasis, history of enteritis
Impression:
#Acute respiratory failure with hypoxia due to acute bronchitis with URI leading to acute bronchiectasis exacerbation
#Acute pulmonary non-CF bronchiectasis � CT on 09/02/2024 shows multifocal areas of mucoid impaction in the bronchioles with improved opacities along the minor fissures bilaterally compared to prior CTA chest in September 2018, with a consolidation in
RML, and bronchiectasis in the subpleural michelle-medial lingula + RML with mild linear opacities in the posteromedial lower lobes (L >R); on prior CT chest from August 2017 there was also a focal area of bronchiectasis within the lingula with
scattered small nodular opacities, suggestive of chronic bronchitis/bronchiolitis in the setting of possible small airway disease
#Chronic anemia
#Chronic hyponatremia (now worse as baseline is usually: 134�137)
#Iron deficiency anemia
#Transaminitis (mild)
#Abnormal TFTs with significantly low TSH and normal free T4, due to subclinical hyperthyroidism vs TSH suppression due to illness
#PMR on chronic prednisone (follows with rheumatology)
#History of restrictive lung disease with moderate gas exchange capacity defect; no evidence of COPD (most recent PFTs 09/01/2018 with T% predicted, post�BD FVC: 76%, DLCO: 55%)
Plan:
- Given her worsening cough with yellow-colored sputum and leukocytosis (albeit on chronic prednisone), I agree with antibiotics and steroid taper
- Currently on Decadron 4 mg IV q8hr and cefepime
- If patient has clinical deterioration then would broaden coverage to cover MRSA
- Need to obtain culture data to check sputum culture now in addition to blood culture
- Supportive care with mucolytics (mucinex); could also add normal saline nasal spray
- Will add scheduled DuoNebs with nebulized 3% NS (which she takes at home BID) to assist with expectoration; use prn nebs for breakthrough symptoms
- Acapella
- Will trial vest therapy
- Up OOB as tolerated as light activity/ambulation will also help her mobilize secretions better
- Of note, based on prior PFT studies, she has no evidence of an obstructive lung defect, hence she does not have COPD
- I personally reviewed her CT chest imaging and compared studies as recent as August 2024 with studies as distant as October 2007
- She has multifocal areas of mucoid impaction in her bronchioles with persistent subpleural bronchiectasis in the RML + lingula, worsened compared to imaging in 2018, and there is evidence of chronic bronchitis/bronchiolitis with possible small
airways disease; it appears that she has had RML/lingula bronchiectasis since as early as October 2007
- It appears that throughout the years, her subpleural bronchiectatic disease in the lingula + RML have persisted and has been slowly worsening
- Previous sputum culture in September 2018 was positive for Aspergillus fumigatus - -> she was reportedly treated for this at [facility] (per the patient and daughters x2, present during this encounter)
- Prior CTD/ANCA panel was negative; prior IgE WNL at 37 in September 2018
- No evidence of an acute process on CXR, as it appears stable compared to prior CXR in August 2024
- Depending on her clinical recovery, it would not be unreasonable to perform bronchoscopy for lower respiratory microbiological sampling
- If she does not improve with antibiotics, then we should repeat CT chest
- As stated above, obtain sputum culture if patient can produce a decent sample
- Legionella + strep pneumoniae urine antigens are both negative
- Trend WBC and monitor temperature curve
- Maintain SpO2 >90-94% with supplemental O2, weaning down as tolerated
- Incentive spirometer encouraged q1hr while awake
- Replete electrolytes with K>4, Mg>2
- Trend H/H and transfuse if needed to keep Hb>7g/dL; keep plt>20k, unless there is concern for bleeding then keep plt>50k
- Maintain euglycemia with goal BG >100 and <180
- DVT ppx: LMWH
She previously followed with our office via Dr. Jama � has not seen us since August 2018. She now follows with Pulmonology through [facility] via Dr. Joseph Sorenson. Next appointment is next month. She is welcome to also follow with us in [facility] office
going forward if she wishes - I will leave my office info in her chart so she can decide herself.
Pulmonary service will continue to follow along.
Data:
CXR 02/17/2025: Stable radiographic appearance. No evidence of active cardiopulmonary disease.
CTA chest/abdomen/pelvis 09/02/2024:
No evidence of central pulmonary embolism.
Areas of opacity in the right upper lobe, left upper lobe and right middle lobe overall smaller in volume in comparison to remote prior CTA chest, most likely representing some residual areas of scarring.
Some prominent interstitial markings throughout the lungs bilaterally, predominantly peripherally which may all be chronic although acute superimposed interstitial edema/pneumonitis superimposed upon some chronic interstitial changes cannot be
excluded. Some changes of bronchiectasis also suspected. No pneumothorax or pleural effusion.
Some nondistended fluid-filled loops of small bowel, nonspecific. Cannot exclude mild small bowel enteritis.
Colonic diverticulosis. No intestinal obstruction or free air.
Subcentimeter low-attenuation left renal lesion too small to characterize.
Pelvic pessary in position.
Total time spent today was 57 minutes for this encounter. Time includes reviewing laboratory test/imaging results, reviewing pertinent medical records, obtaining and reviewing medical history, performing an appropriate exam, ordering medications,
tests and procedures. Time also includes documentation of this encounter, coordinating patient care and communicating with other healthcare professionals. Total time does not include separately billed tests performed on this date of service.
[2025-02-18 16:36] LABS: Glucose - Point of Care 182 mg/dl (70-99)
[2025-02-18] MEDS: LOVENOX 40 MG SC (17:16)
[2025-02-18 19:13] LABS: Hepatitis B Surface Antigen Negative (Negative)
[2025-02-18] MEDS: DUONEB 3 ML INH (19:29)
[2025-02-18 19:32] LABS: Hepatitis C Antibody Negative (Negative)
[2025-02-18] MEDS: PEPCID 40 MG PO (21:16)
[2025-02-18] MEDS: RESTORIL 7.5 MG PO (21:17)
[2025-02-18] MEDS: LIPITOR 10 MG PO (21:17)
[2025-02-18] MEDS: NEURONTIN 100 MG PO (21:17)
[2025-02-18] MEDS: SODIUM CHLORIDE 3% FOR INHALATION 1 VIAL INH (21:19)
[2025-02-18 21:26] LABS: Glucose - Point of Care 168 mg/dl (70-99)
[2025-02-18 23:00] VITALS: BP 117/64
[2025-02-18] MEDS: TUMS CHEWABLE TABLET 400 MG PO (23:56)
[2025-02-19] MEDS: STERILE WATER FOR INJECTION 10 ML IV ×3 (02:00→17:48)
[2025-02-19] MEDS: MAXIPIME 2000 MG IV ×3 (02:00→17:48)
[2025-02-19] MEDS: DECADRON 4 MG IV ×3 (05:37→21:20)
[2025-02-19 05:42] VITALS: BMI 24.2
[2025-02-19] MEDS: SODIUM CHLORIDE 3% FOR INHALATION 1 VIAL INH ×4 (07:29→19:03)
[2025-02-19] MEDS: DUONEB 3 ML INH ×4 (07:30→19:04)
[2025-02-19] MEDS: COREG 6.25 MG PO ×2 (07:58→21:18)
[2025-02-19] MEDS: MUCINEX 1200 MG PO ×2 (07:58→21:18)
[2025-02-19] MEDS: CARDIZEM CD 180 MG PO ×2 (07:58→21:18)
[2025-02-19] MEDS: CYMBALTA DELAYED RELEASE 60 MG PO (07:59)
[2025-02-19 08:00] VITALS: BP 145/69
[2025-02-19 08:00] LABS: Hematocrit 29.0 % (37.0-47.0); Hemoglobin 9.8 g/dL (12.0-16.0); Mean Corp Hgb Conc. 33.8 g/dL (33.0-37.0); Mean Corpuscular Volume 92.1 fL (81.0-99.0); Nucleated Red Blood Cells % 0 %; Platelet Count 416 10^3/uL (130-400); Red Cell Dist. Width 14.6 % (11.5-14.5)
[2025-02-19] MEDS: METAMUCIL, KONSYL 1 PACKET PO (08:05)
[2025-02-19] MEDS: COZAAR 25 MG PO (08:05)
[2025-02-19] MEDS: LACTAID 1 CAPSULE PO ×3 (08:09→17:42)
[2025-02-19] MEDS: TYLENOL 650 MG PO (08:09)
[2025-02-19 08:19] LABS: Glucose - Point of Care 143 mg/dl (70-99)
[2025-02-19] MEDS: NOVOLOG FLEXPEN-LOW RESISTANCE SC ×2 (08:20→17:43)
[2025-02-19 08:24] LABS: ALT (SGPT) 52 U/L (0-35); AST (SGOT) 45 U/L (14-36); Albumin 3.4 g/dl (3.5-5.0); Alkaline Phosphatase 102 U/L (38-126); Blood Urea Nitrogen 21 mg/dl (7-17); Calcium 9.0 mg/dl (8.4-10.2); Carbon Dioxide 23 mmol/L (22-30); Chloride 102 mmol/L (98-107); Estimated Creatinine Clearance 60 ml/min; Glucose 135 mg/dl (70-99); Potassium 4.8 mmol/L (3.5-5.1); Sodium 130 mmol/L (135-145); Total Protein 6.6 g/dl (6.3-8.2); Uric Acid 4.1 mg/dl (2.5-6.2); eGFR > 60.00
--- NOTE | 2025-02-19 11:31 | W.PN.HOSP.TC ---
Today's Communication/Plan
-
leukocytosis worsened, but also on steroids - cont to follow as clinically patient is improving
Assessment / Plan
Assessment / Plan
84yo F with recurrent pneumonia 2/2 bronchiectatic disease, PMR on chronic Prednisone, Hx of fungal pneumonia, SSS s/p PPM, SVT, DM, Anxiety, HLD, HTN came with 6 days of worsening cough with yellow-colored sputum. Found exacerbation of
bronchiectatic disease with COPD exacerbation and hyponatremia
Scheduled for appt in [facility] pulmonology dept with in Feb
A/P:
#Acute respiratory insufficiency 2/2 COPD exacerbation with significant bronchiectatic disease
Cefepime with high risk for pseudomonal infection pending sputum Cx
COVID-19 and Influenza PCR neg
check Legionella and S/pneumonia urinary Ag
chest PT
Encourage cough, Mucinex, hypertonic saline
Taper steroids
COnt bronchodilators
frequent repositioning in bed to allow flegm drainage
Pulm consult
Watch for hemoptysis
wean off O2
#Hyponatremia
can be 2/2 pulmonary disease
resolving on mild FR
follow NA - target correction of 6mmol/24h
SIDH 2/2 lung disease
#Mild transaminitis
improving
hepatitis panel neg
#Hyperthyroidism, subclinical
repeat TFT in 2-3 weeks with PCP
#DM type 2 with neuropathy
Acucchecks, Insulin SS, DM diet
#Anxiety D/O
#Essential HTN
#SSS s/p PPM
#Insomnia
#HLD
cont home meds
#Anemia
anemia w/u
follow H&H
no overt bleeding reported
check FOBT
DVT ppx lovenox
Full code
I have spent at least 51min reviewing chart, test results, communication with consultants and providing direct patient care
Anticipated Discharge: > 48 hours
Subjective/Interval History
-
Date of Service: February 19, 2025
Objective Data
-
Labs:
Laboratory Results
02/19/25
07:36
WBC 21.0 H
Hgb 9.8 L
Hct 29.0 L
Plt Count 416 H
Sodium 130 L
Potassium 4.8
Chloride 102
Carbon Dioxide 23
BUN 21 H
Creatinine 0.6
Glucose 135 H
Calcium 9.0
Total Bilirubin 0.5
AST 45 H
ALT 52 H
Alkaline Phosphatase 102
Vital Signs:
Vital Signs
Temp Pulse Resp BP Pulse Ox
97.4 F 91 18 145/69 93
02/19/25 08:00 02/19/25 08:00 02/19/25 08:00 02/19/25 08:00 02/19/25 08:59
I&O
02/18/25 02/19/25 02/20/25
06:59 06:59 06:59
Intake Total 240 / 240 600 / 600
Balance 240 / 240 600 / 600
Review of Systems
-
History Source: Patient
All other systems: Reviewed and negative
Respiratory: Reports Cough
Physical Exam
-
General: Well Nourished and No Apparent Distress
HEENT: Normocephalic
Respiratory: Wheezes and Rales
GI: Soft, Nontender and Nondistended
Neuro: Awake, Alert, Oriented and AO x 3
Psych: Calm
[2025-02-19 12:21] LABS: Glucose - Point of Care 207 mg/dl (70-99)
[2025-02-19] MEDS: NOVOLOG FLEXPEN-LOW RESISTANCE 2 UNITS SC (12:39)
[2025-02-19 13:11] VITALS: O2SAT 94
[2025-02-19] MEDS: ANESTHETIC LOZENGE 1 LOZENGE PO (15:18)
--- NOTE | 2025-02-19 16:32 | W.PN.PUL3 ---
Today's Communication / Plan
-
Antibiotics
Pulmonary toilet with DuoNebs, nebulized 3%, vest and Acapella
Aspiration precautions
Goal SpO2 >90-94%, using O2 if needed (currently on room air as of 02/19)
PT/OT, as tolerated
If she fails to improve or if she worsens then would be prudent and arrange for bronchoscopy for lower respiratory microbiological sampling (+ CT chest prior to bronch)
Outpatient AFB sputum culture shows NGTD ([facility])
Systemic steroids, weaning as she clinically improves
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
Assessment
-
Assessment: 84-year-old female with a past medical history of non-cystic fibrosis bronchiectasis, chronic HFpEF, mitral valve regurgitation, pulmonary hypertension, history of recurrent bronchitis/pneumonia, history of sleep apnea, lichen planus
(affecting her mouth), recurrent UTI, shingles (September 2019), COVID-19 (December 2021), history of enteritis, restrictive lung disease, history of ventricular tachycardia, GERD, fibromyalgia, hypercholesterolemia and hypertension who presented with low
oxygen levels. Patient had seen her PCP on 02/17 and was COVID + flu negative. Patient endorsed shortness of breath with a productive cough. She reports that she was having URI symptoms initially with cough and congestion several days prior to
arrival which progressed. Patient was recently prescribed Augmentin by her PCP on 02/15 but her symptoms did not improve despite this. She is on chronic prednisone at 10 mg daily in the setting of PMR. In the ER she was afebrile with temperature
97.8 �F, pulse rate 79, respiratory rate 18, BP 133/64 and saturating 94% on room air. Pertinent labs showed leukocytosis to 17.2, Hb 10.2, sodium 125, chloride 94, glucose 199, slightly elevated LFTs, and urine sodium 72. Patient was flu swab
negative and COVID-19 antigen negative. CXR showed no acute cardiopulmonary process. In the ER, she was given 1 L NS 0.9%, Zofran, DuoNebs, Decadron and Zithromax. She was admitted to the hospitalist service for further care, and now pulmonary
service consulted for additional management/recommendations.
Chronic conditions POWDER HAND: Chronic HFpEF, mitral valve regurgitation, pulmonary hypertension (PASP: 40 mmHg per TTE on 01/27/2025), GERD, fibromyalgia, hypercholesterolemia, diverticulosis, history of pneumococcal pneumonia (2001), history of
gastritis, IBS, hypertension, sciatica, osteoporosis, restrictive lung disease, frequent bouts of bronchitis, history of VT, history of sleep apnea, history of lichen planus (affecting the mouth), history of recurrent UTI, eczema, history of
shingles (September 2019), history of COVID-19 (December 2021), history of bronchiectasis, history of enteritis
Impression:
#Acute respiratory failure with hypoxia due to acute bronchitis with URI leading to acute bronchiectasis exacerbation
#Acute pulmonary non-CF bronchiectasis � CT on 09/02/2024 shows multifocal areas of mucoid impaction in the bronchioles with improved opacities along the minor fissures bilaterally compared to prior CTA chest in September 2018, with a consolidation in
RML, and bronchiectasis in the subpleural michelle-medial lingula + RML with mild linear opacities in the posteromedial lower lobes (L >R); on prior CT chest from August 2017 there was also a focal area of bronchiectasis within the lingula with
scattered small nodular opacities, suggestive of chronic bronchitis/bronchiolitis in the setting of possible small airway disease
#Chronic anemia
#Chronic hyponatremia (now worse as baseline is usually: 134�137)
#Iron deficiency anemia
#Transaminitis (mild)
#Abnormal TFTs with significantly low TSH and normal free T4, due to subclinical hyperthyroidism vs TSH suppression due to illness
#PMR on chronic prednisone (follows with rheumatology)
#History of restrictive lung disease with moderate gas exchange capacity defect; no evidence of COPD (most recent PFTs 09/01/2018 with T% predicted, post�BD FVC: 76%, DLCO: 55%)
Plan:
- Given her worsening cough with yellow-colored sputum and leukocytosis (albeit on chronic prednisone), I agree with antibiotics and steroid taper
- Currently on Decadron 4 mg IV q8hr - wean steroids as she clinically improves
- Continue Abx with cefepime
- If she does not improve with antibiotics, then we should repeat CT chest
- Legionella + strep pneumoniae urine antigens are both negative
- Trend WBC and monitor temperature curve
- If patient has clinical deterioration then would broaden coverage to cover MRSA
- Follow up sputum and blood cultures (NGTD)
- Supportive care with mucolytics (mucinex); could also add normal saline nasal spray
- Continue DuoNebs with nebulized 3% NS (which she takes at home BID) to assist with expectoration; use prn nebs for breakthrough symptoms
- Acapella
- Continue vest therapy
- Up OOB as tolerated as light activity/ambulation will also help her mobilize secretions better
- Of note, based on prior PFT studies, she has no evidence of an obstructive lung defect, hence she does not have COPD
- I personally reviewed her CT chest imaging and compared imaging studies as recent as August 2024 to studies as distant as October 2007
- She has multifocal areas of mucoid impaction in her bronchioles with persistent subpleural bronchiectasis in the RML + lingula, worsened compared to imaging in 2018, and there is evidence of chronic bronchitis/bronchiolitis with possible small
airways disease; it appears that she has had RML/lingula bronchiectasis since as early as October 2007
- It appears that throughout the years, her subpleural bronchiectatic disease in the lingula + RML have persisted and has been slowly worsening
- Previous sputum culture in September 2018 was positive for Aspergillus fumigatus - -> she was reportedly treated for this at [place] (per the patient and daughters x2, present during this encounter)
- Recent outpatient AFB sputum Cx shows NGTD ([facility] - collected 02/15)
- Prior CTD/ANCA panel was negative; prior IgE WNL at 37 in September 2018
- No evidence of an acute process on CXR, as it appears stable compared to prior CXR in August 2024
- Depending on her clinical recovery, it would not be unreasonable to perform bronchoscopy for lower respiratory microbiological sampling if she fails to improve
- Maintain SpO2 >90-94% with supplemental O2 if needed
- Incentive spirometer encouraged q1hr while awake
- Replete electrolytes with K>4, Mg>2
- Trend H/H and transfuse if needed to keep Hb>7g/dL; keep plt>20k, unless there is concern for bleeding then keep plt>50k
- Maintain euglycemia with goal BG >100 and <180
- DVT ppx: LMWH
She previously followed with our office via Dr. Jama � has not seen us since August 2018. She now follows with Pulmonology through [place] via Dr. Joseph Sorenson. Next appointment is next month. She is welcome to also follow with us in [facility] office
going forward if she wishes - I will leave my office info in her chart so she can decide herself.
Pulmonary service will continue to follow along.
Data:
CXR 02/17/2025: Stable radiographic appearance. No evidence of active cardiopulmonary disease.
CTA chest/abdomen/pelvis 09/02/2024:
No evidence of central pulmonary embolism.
Areas of opacity in the right upper lobe, left upper lobe and right middle lobe overall smaller in volume in comparison to remote prior CTA chest, most likely representing some residual areas of scarring.
Some prominent interstitial markings throughout the lungs bilaterally, predominantly peripherally which may all be chronic although acute superimposed interstitial edema/pneumonitis superimposed upon some chronic interstitial changes cannot be
excluded. Some changes of bronchiectasis also suspected. No pneumothorax or pleural effusion.
Some nondistended fluid-filled loops of small bowel, nonspecific. Cannot exclude mild small bowel enteritis.
Colonic diverticulosis. No intestinal obstruction or free air.
Subcentimeter low-attenuation left renal lesion too small to characterize.
Pelvic pessary in position.
Total time spent today was 41 minutes for this encounter. Time includes reviewing laboratory test/imaging results, reviewing pertinent medical records, obtaining and reviewing medical history, performing an appropriate exam, ordering medications,
tests and procedures. Time also includes documentation of this encounter, coordinating patient care and communicating with other healthcare professionals. Total time does not include separately billed tests performed on this date of service.
Subjective Data
-
Date of Service:
Date of Service: February 19, 2025
Chief Complaint: Pulmonary Follow Up
Subjective:
Patient was seen and evaluated earlier this afternoon (late note entry). Patient is feeling better. The vest is helping her to bring up the phlegm she says but only mildly. Currently on room air breathing comfortably. Afebrile overnight.
Review of Systems
General: Other (Negative unless mentioned above)
Objective Data
Data Reviewed
Vital Signs / I&O / Oxygen:
Vital Signs
Temp Pulse Resp BP Pulse Ox
97.4 F 91 18 145/69 93
02/19/25 08:00 02/19/25 08:00 02/19/25 08:00 02/19/25 08:00 02/19/25 08:59
Intake and Output
02/18/25 02/19/25 02/20/25
06:59 06:59 06:59
Intake Total 240 / 240 600 / 600
Balance 240 / 240 600 / 600
SaO2 93
Nasal Cannula flow liters per 2
minute
Physical Exam
General: Respiratory Distress (n), Comfortable, Chills (n), Sweats (n) and Other (elderly female, in NAD with no conversational dyspnea)
HEENT: Normocephalic and Anicteric
Cardiovascular: S1-S2 and Peripheral Edema (n)
Respiratory: Wheeze, Crackles, Rhonchi (n), Non-Labored Respirations and Other (diminished breath sounds bilaterally)
GI: Soft, Non Distended, Non Tender and Normal Bowel Sounds
Neurology: Awake, Alert, Oriented and Tremors (n)
Skin: Warm, Dry, Cyanosis (n) and Jaundice (n)
Labs/Micro/Reports
Lab Data
02/19/25 07:36
02/19/25 07:36
Microbiology
02/18/25 12:02 Urine Legionella Urinary Antigen - Final
Negative for Legionella pneumophila Serogroup 1 antigen.
A negative result does not rule out the possiblity of
Legionella infection due to other serogroups or species of
Legionella. Clinical correlation is recommended.
02/18/25 12:02 Urine Streptococcus pneumoniae Antigen (M - Final
Negative for Streptococcus pneumoniae antigen.
A negative result does not exclude infection with
Streptococcus pneumoniae. Clinical correlation is
recommended.
02/17/25 23:39 Nasal Swab Influenza Types A & B ([facility]) - Final
Negative for Influenza A & B, NAAT
Negative results must be combined with clinical observations
and patient history.
Nucleic Acid Amplification test (NAAT)performed on the
[employer] platform.
[2025-02-19 16:38] VITALS: BP 92/61
[2025-02-19 17:19] LABS: Glucose - Point of Care 147 mg/dl (70-99)
[2025-02-19] MEDS: LOVENOX SC (17:47)
[2025-02-19] MEDS: SODIUM CHLORIDE 3% FOR INHALATION INH (19:09)
[2025-02-19 20:56] LABS: Glucose - Point of Care 214 mg/dl (70-99)
[2025-02-19] MEDS: PEPCID 40 MG PO (21:18)
[2025-02-19] MEDS: LIPITOR 10 MG PO (21:18)
[2025-02-19] MEDS: RESTORIL 7.5 MG PO (21:19)
[2025-02-19] MEDS: NEURONTIN 100 MG PO (21:19)
[2025-02-19 23:34] VITALS: BP 120/66
[2025-02-20] MEDS: STERILE WATER FOR INJECTION 10 ML IV ×3 (01:19→17:26)
[2025-02-20] MEDS: MAXIPIME 2000 MG IV ×3 (01:19→17:26)
[2025-02-20] MEDS: DECADRON 4 MG IV ×2 (05:54→14:40)
[2025-02-20] MEDS: TYLENOL 650 MG PO ×2 (05:59→19:00)
[2025-02-20] MEDS: TUMS CHEWABLE TABLET 400 MG PO (05:59)
[2025-02-20 06:00] VITALS: BMI 24.5
[2025-02-20 07:30] VITALS: BP 104/70
[2025-02-20 07:39] LABS: Glucose - Point of Care 151 mg/dl (70-99)
[2025-02-20] MEDS: DUONEB 3 ML INH ×4 (07:43→19:13)
[2025-02-20] MEDS: SODIUM CHLORIDE 3% FOR INHALATION 1 VIAL INH ×4 (07:44→19:13)
[2025-02-20] MEDS: LACTAID 1 CAPSULE PO ×3 (08:41→17:24)
[2025-02-20] MEDS: METAMUCIL, KONSYL 1 PACKET PO (08:42)
[2025-02-20] MEDS: NOVOLOG FLEXPEN-LOW RESISTANCE 1 UNITS SC ×2 (08:42→17:25)
[2025-02-20] MEDS: MUCINEX 1200 MG PO ×2 (08:42→21:23)
[2025-02-20] MEDS: CYMBALTA DELAYED RELEASE 60 MG PO (08:43)
[2025-02-20] MEDS: OCEAN, SALINE MIST 2 SPRAYS NASAL ×4 (08:43→21:32)
[2025-02-20] MEDS: COREG 6.25 MG PO ×2 (08:43→21:30)
[2025-02-20] MEDS: COZAAR 25 MG PO (08:44)
[2025-02-20 08:46] LABS: Hematocrit 28.8 % (37.0-47.0); Hemoglobin 10.2 g/dL (12.0-16.0); Mean Corp Hgb Conc. 35.4 g/dL (33.0-37.0); Mean Corpuscular Volume 91.7 fL (81.0-99.0); Nucleated Red Blood Cells % 0 %; Platelet Count 470 10^3/uL (130-400); Red Cell Dist. Width 14.7 % (11.5-14.5)
[2025-02-20] MEDS: CARDIZEM CD 180 MG PO ×2 (09:13→21:30)
[2025-02-20 09:16] LABS: ALT (SGPT) 66 U/L (0-35); AST (SGOT) 44 U/L (14-36); Albumin 3.5 g/dl (3.5-5.0); Alkaline Phosphatase 114 U/L (38-126); Blood Urea Nitrogen 27 mg/dl (7-17); Calcium 9.2 mg/dl (8.4-10.2); Carbon Dioxide 21 mmol/L (22-30); Chloride 101 mmol/L (98-107); Estimated Creatinine Clearance 60 ml/min; Glucose 130 mg/dl (70-99); Potassium 4.2 mmol/L (3.5-5.1); Sodium 130 mmol/L (135-145); Total Protein 6.7 g/dl (6.3-8.2); eGFR > 60.00
--- NOTE | 2025-02-20 10:41 | W.PN.HOSP.TC ---
Today's Communication/Plan
-
cont ABx
CALL CENTER ASSOCIATE
pending sputum Cx ID
Assessment / Plan
Assessment / Plan
84yo F with recurrent pneumonia 2/2 bronchiectatic disease, PMR on chronic Prednisone, Hx of fungal pneumonia, SSS s/p PPM, SVT, DM, Anxiety, HLD, HTN came with 6 days of worsening cough with yellow-colored sputum. Found exacerbation of
bronchiectatic disease with COPD exacerbation and hyponatremia
Scheduled for appt in [facility] pulmonology dept with in Feb
A/P:
#Acute respiratory insufficiency 2/2 COPD exacerbation with significant bronchiectatic disease
Cefepime with high risk for pseudomonal infection pending sputum Cx
COVID-19 and Influenza PCR neg
Legionella and S/pneumonia urinary Ag neg
chest PT
Encourage cough, Mucinex, hypertonic saline
Taper steroids
COnt bronchodilators
frequent repositioning in bed to allow mucus drainage
Pulm consult
Watch for hemoptysis
wean off O2
Sputum Cx with E.coli - possible aspiration - will get CALL CENTER ASSOCIATE
#Hyponatremia
can be 2/2 pulmonary disease
resolving on mild FR
follow NA - target correction of 6mmol/24h
SIDH 2/2 lung disease
#Mild transaminitis
improving
hepatitis panel neg
#Hyperthyroidism, subclinical
repeat TFT in 2-3 weeks with PCP
#DM type 2 with neuropathy
Acucchecks, Insulin SS, DM diet
#Reactive thrombocytosis
follow CBC
#Anxiety D/O
#Essential HTN
#SSS s/p PPM
#Insomnia
#HLD
cont home meds
#Anemia
anemia w/u
follow H&H
no overt bleeding reported
check FOBT
DVT ppx lovenox
Full code
I have spent at least 51min reviewing chart, test results, communication with consultants and providing direct patient care
Anticipated Discharge: > 48 hours
Subjective/Interval History
-
Date of Service: February 20, 2025
Objective Data
-
Labs:
Laboratory Results
02/20/25
08:13
WBC 17.6 H
Hgb 10.2 L
Hct 28.8 L
Plt Count 470 H
Sodium 130 L
Potassium 4.2
Chloride 101
Carbon Dioxide 21 L
BUN 27 H
Creatinine 0.6
Glucose 130 H
Calcium 9.2
Total Bilirubin 0.4
AST 44 H
ALT 66 H
Alkaline Phosphatase 114
Vital Signs:
Vital Signs
Temp Pulse Resp BP Pulse Ox
98.4 F 66 18 104/70 95
02/20/25 07:30 02/20/25 07:56 02/20/25 07:56 02/20/25 07:30 02/20/25 07:56
I&O
02/19/25 02/20/25 02/21/25
06:59 06:59 06:59
Intake Total 600 / 600 240 / 240
Balance 600 / 600 240 / 240
Review of Systems
-
History Source: Patient
All other systems: Reviewed and negative
Physical Exam
-
General: No Apparent Distress
Respiratory: Wheezes and Crackles
GI: Soft
Genito-urinary: No Costovertebral Tender
Neuro: Awake, Alert, Oriented and AO x 3
Psych: Calm
[2025-02-20 10:50] LABS: Glucose - Point of Care 254 mg/dl (70-99)
[2025-02-20] MEDS: NOVOLOG FLEXPEN-LOW RESISTANCE 3 UNITS SC (11:57)
[2025-02-20 15:30] VITALS: BP 133/68
[2025-02-20 15:34] LABS: Glucose - Point of Care 154 mg/dl (70-99)
--- NOTE | 2025-02-20 16:20 | PTOTSP ---
Speech Therapy Evaluation:
Pt with acute on chronic risk factors of dysphagia including hx of bronchiectasis, asthma, severe PNA multiple times, lichen planus (affecting mouth), restrictive lung disease, GERD, and gastritis, acutely compounded by acute respiratory failure
with hypoxia due to acute bronchitis with URI leading to acute bronchiectasis exacerbation. Despite this, oropharyngeal swallow appeared functional at bedside. Prior VSE in 2019 also with functional swallow. Current CXR without concern for pneumonia
and pt on room air.
Recommend:
1. Regular solids and thin liquids
2. Meds as tolerated
3. Aspiration and reflux precautions
4. LAUNDRY ROOM ATTENDANT to follow to monitor tolerance of diet
--- NOTE | 2025-02-20 16:47 | W.PN.PUL3 ---
Today's Communication / Plan
-
Continue current antibiotics
Wait for sensitivities of E. coli in the sputum-antibiotics will be adjusted based on sensitivities.
Continue secretion clearance interventions
Decrease corticosteroids-2 mg IV every 8 hours of dexamethasone. Hopefully transition to prednisone soon.(She uses baseline 10 mg of prednisone for PMR at home)
Assessment
-
Assessment: 84-year-old female with a past medical history of non-cystic fibrosis bronchiectasis, chronic HFpEF, mitral valve regurgitation, pulmonary hypertension, history of recurrent bronchitis/pneumonia, history of sleep apnea, lichen planus
(affecting her mouth), recurrent UTI, shingles (September 2019), COVID-19 (December 2021), history of enteritis, restrictive lung disease, history of ventricular tachycardia, GERD, fibromyalgia, hypercholesterolemia and hypertension who presented with low
oxygen levels. Patient had seen her PCP on 02/17 and was COVID + flu negative. Patient endorsed shortness of breath with a productive cough. She reports that she was having URI symptoms initially with cough and congestion several days prior to
arrival which progressed. Patient was recently prescribed Augmentin by her PCP on 02/15 but her symptoms did not improve despite this. She is on chronic prednisone at 10 mg daily in the setting of PMR. In the ER she was afebrile with temperature
97.8 �F, pulse rate 79, respiratory rate 18, BP 133/64 and saturating 94% on room air. Pertinent labs showed leukocytosis to 17.2, Hb 10.2, sodium 125, chloride 94, glucose 199, slightly elevated LFTs, and urine sodium 72. Patient was flu swab
negative and COVID-19 antigen negative. CXR showed no acute cardiopulmonary process. In the ER, she was given 1 L NS 0.9%, Zofran, DuoNebs, Decadron and Zithromax. She was admitted to the hospitalist service for further care, and now pulmonary
service consulted for additional management/recommendations.
Chronic conditions PUD[employer]LE [employer]IVING: Chronic HFpEF, mitral valve regurgitation, pulmonary hypertension (PASP: 40 mmHg per TTE on 01/27/2025), GERD, fibromyalgia, hypercholesterolemia, diverticulosis, history of pneumococcal pneumonia (2001), history of
gastritis, IBS, hypertension, sciatica, osteoporosis, restrictive lung disease, frequent bouts of bronchitis, history of VT, history of sleep apnea, history of lichen planus (affecting the mouth), history of recurrent UTI, eczema, history of
shingles (September 2019), history of COVID-19 (December 2021), history of bronchiectasis, history of enteritis
Impression:
#Acute respiratory failure with hypoxia due to acute bronchitis with URI leading to acute bronchiectasis exacerbation
#Acute pulmonary non-CF bronchiectasis � CT on 09/02/2024 shows multifocal areas of mucoid impaction in the bronchioles with improved opacities along the minor fissures bilaterally compared to prior CTA chest in September 2018, with a consolidation in
RML, and bronchiectasis in the subpleural michelle-medial lingula + RML with mild linear opacities in the posteromedial lower lobes (L >R); on prior CT chest from August 2017 there was also a focal area of bronchiectasis within the lingula with
scattered small nodular opacities, suggestive of chronic bronchitis/bronchiolitis in the setting of possible small airway disease
#Chronic anemia
#Chronic hyponatremia (now worse as baseline is usually: 134�137)
#Iron deficiency anemia
#Transaminitis (mild)
#Abnormal TFTs with significantly low TSH and normal free T4, due to subclinical hyperthyroidism vs TSH suppression due to illness
#PMR on chronic prednisone (follows with rheumatology)
#History of restrictive lung disease with moderate gas exchange capacity defect; no evidence of COPD (most recent PFTs 09/01/2018 with T% predicted, post�BD FVC: 76%, DLCO: 55%)
Plan:
- Given her worsening cough with yellow-colored sputum and leukocytosis (albeit on chronic prednisone), I agree with antibiotics and steroid taper
- Currently on Decadron 4 mg IV q8hr -decreased to 2 mg IV every 8 hours. Hopefully can taper rather quickly. She is on 10 mg of prednisone for PMR at home.
- Continue Abx with cefepime
- If she does not improve with antibiotics, then we should repeat CT chest
- Legionella + strep pneumoniae urine antigens are both negative
- Trend WBC and monitor temperature curve-improved.
- If patient has clinical deterioration then would broaden coverage to cover MRSA
- Respiratory culture positive for E. coli. Sensitivities pending.
- Supportive care with mucolytics (mucinex); could also add normal saline nasal spray
- Continue DuoNebs with nebulized 3% NS (which she takes at home BID) to assist with expectoration; use prn nebs for breakthrough symptoms
- Acapella
- Continue vest therapy
- Up OOB as tolerated as light activity/ambulation will also help her mobilize secretions better
- Of note, based on prior PFT studies, she has no evidence of an obstructive lung defect, hence she does not have COPD
- I personally reviewed her CT chest imaging and compared imaging studies as recent as August 2024 to studies as distant as October 2007
- She has multifocal areas of mucoid impaction in her bronchioles with persistent subpleural bronchiectasis in the RML + lingula, worsened compared to imaging in 2018, and there is evidence of chronic bronchitis/bronchiolitis with possible small
airways disease; it appears that she has had RML/lingula bronchiectasis since as early as October 2007
- It appears that throughout the years, her subpleural bronchiectatic disease in the lingula + RML have persisted and has been slowly worsening
- Previous sputum culture in September 2018 was positive for Aspergillus fumigatus - -> she was reportedly treated for this at [facility] (per the patient and daughters x2, present during this encounter)
- Recent outpatient AFB sputum Cx shows NGTD ([facility] - collected 02/15)
- Prior CTD/ANCA panel was negative; prior IgE WNL at 37 in September 2018
- No evidence of an acute process on CXR, as it appears stable compared to prior CXR in August 2024
- Again, E. coli has been recovered. Continue current antibiotics and wait for sensitivities. No indication for bronchoscopy at this point.
- Maintain SpO2 >90-94% with supplemental O2 if needed
- Incentive spirometer encouraged q1hr while awake
- DVT ppx: LMWH
She previously followed with our office via Dr. Jama � has not seen us since August 2018. She now follows with Pulmonology through [facility] via Dr. Joseph Sorenson. Next appointment is next month. She is welcome to also follow with us in [facility] office
going forward if she wishes - I will leave my office info in her chart so she can decide herself.
Pulmonary service will continue to follow along.
Data:
CXR 02/17/2025: Stable radiographic appearance. No evidence of active cardiopulmonary disease.
CTA chest/abdomen/pelvis 09/02/2024:
No evidence of central pulmonary embolism.
Areas of opacity in the right upper lobe, left upper lobe and right middle lobe overall smaller in volume in comparison to remote prior CTA chest, most likely representing some residual areas of scarring.
Some prominent interstitial markings throughout the lungs bilaterally, predominantly peripherally which may all be chronic although acute superimposed interstitial edema/pneumonitis superimposed upon some chronic interstitial changes cannot be
excluded. Some changes of bronchiectasis also suspected. No pneumothorax or pleural effusion.
Some nondistended fluid-filled loops of small bowel, nonspecific. Cannot exclude mild small bowel enteritis.
Colonic diverticulosis. No intestinal obstruction or free air.
Subcentimeter low-attenuation left renal lesion too small to characterize.
Pelvic pessary in position.
Total time spent today was 36 minutes for this encounter. Time includes reviewing laboratory test/imaging results, reviewing pertinent medical records, obtaining and reviewing medical history, performing an appropriate exam, ordering medications,
tests and procedures. Time also includes documentation of this encounter, coordinating patient care and communicating with other healthcare professionals. Total time does not include separately billed tests performed on this date of service.
Subjective Data
-
Date of Service:
Date of Service: February 20, 2025
Chief Complaint: Pulmonary Follow Up
Review of Systems
Cardiopulmonary: Dyspnea and Cough
GI: Abdominal Pain (n) and Nausea (n)
Neuro: Headache (n)
Objective Data
Data Reviewed
Vital Signs / I&O / Oxygen:
Vital Signs
Temp Pulse Resp BP Pulse Ox
98.3 F 77 16 133/68 90
02/20/25 15:30 02/20/25 15:30 02/20/25 15:30 02/20/25 15:30 02/20/25 15:30
Intake and Output
02/19/25 02/20/25 02/21/25
06:59 06:59 06:59
Intake Total 600 / 600 240 / 240
Balance 600 / 600 240 / 240
SaO2 90
Nasal Cannula flow liters per 2
minute
Physical Exam
General: Respiratory Distress (n), Comfortable, Chills (n), Sweats (n) and Other (elderly female, in NAD with no conversational dyspnea)
HEENT: Normocephalic and Anicteric
Cardiovascular: S1-S2 and Peripheral Edema (n)
Respiratory: Wheeze, Crackles, Rhonchi (n), Non-Labored Respirations and Other (diminished breath sounds bilaterally)
GI: Soft, Non Distended, Non Tender and Normal Bowel Sounds
Neurology: Awake, Alert, Oriented and Tremors (n)
Skin: Warm, Dry, Cyanosis (n) and Jaundice (n)
Labs/Micro/Reports
Lab Data
02/20/25 08:13
02/20/25 08:13
Microbiology
02/18/25 20:09 Sputum Respiratory Culture - Preliminary
Escherichia coli
02/18/25 20:09 Sputum Gram Stain - Preliminary
02/18/25 20:22 Blood/Venous Blood Culture - Preliminary
No Growth in 24 hours- Final report to follow
02/18/25 20:27 Blood/Venous Blood Culture - Preliminary
No Growth in 24 hours- Final report to follow
02/18/25 12:02 Urine Legionella Urinary Antigen - Final
Negative for Legionella pneumophila Serogroup 1 antigen.
A negative result does not rule out the possiblity of
Legionella infection due to other serogroups or species of
Legionella. Clinical correlation is recommended.
02/18/25 12:02 Urine Streptococcus pneumoniae Antigen (M - Final
Negative for Streptococcus pneumoniae antigen.
A negative result does not exclude infection with
Streptococcus pneumoniae. Clinical correlation is
recommended.
02/17/25 23:39 Nasal Swab Influenza Types A & B (SHELLEY) - Final
Negative for Influenza A & B, NAAT
Negative results must be combined with clinical observations
and patient history.
Nucleic Acid Amplification test (NAAT)performed on the
[employer] platform.
[2025-02-20] MEDS: LOVENOX SC ×2 (17:24→17:38)
[2025-02-20] MEDS: SODIUM CHLORIDE 3% FOR INHALATION INH (19:18)
[2025-02-20 21:12] LABS: Glucose - Point of Care 169 mg/dl (70-99)
[2025-02-20] MEDS: PEPCID 20 MG PO (21:23)
[2025-02-20] MEDS: LIPITOR 10 MG PO (21:23)
[2025-02-20] MEDS: NEURONTIN 100 MG PO (21:23)
[2025-02-20] MEDS: DECADRON 2 MG IV (21:24)
[2025-02-20] MEDS: RESTORIL 7.5 MG PO (22:49)
[2025-02-20 23:00] VITALS: BP 134/68
[2025-02-20 23:07] VITALS: BP 134/68
[2025-02-21] MEDS: STERILE WATER FOR INJECTION 10 ML IV ×2 (01:06→10:11)
[2025-02-21] MEDS: MAXIPIME 2000 MG IV (01:06)
[2025-02-21] MEDS: DECADRON 2 MG IV (05:19)
[2025-02-21 06:00] VITALS: BMI 24.3
[2025-02-21 07:26] LABS: Glucose - Point of Care 124 mg/dl (70-99)
[2025-02-21] MEDS: NOVOLOG FLEXPEN-LOW RESISTANCE SC ×3 (07:36→16:37)
[2025-02-21 07:40] LABS: Hematocrit 28.6 % (37.0-47.0); Hemoglobin 9.9 g/dL (12.0-16.0); Mean Corp Hgb Conc. 34.6 g/dL (33.0-37.0); Mean Corpuscular Volume 93.5 fL (81.0-99.0); Nucleated Red Blood Cells % 0 %; Platelet Count 457 10^3/uL (130-400); Red Cell Dist. Width 14.8 % (11.5-14.5)
[2025-02-21] MEDS: MUCINEX 1200 MG PO ×2 (07:41→21:10)
[2025-02-21] MEDS: COREG 6.25 MG PO ×2 (07:41→21:09)
[2025-02-21] MEDS: CARDIZEM CD 180 MG PO ×2 (07:42→21:09)
[2025-02-21] MEDS: COZAAR 25 MG PO (07:43)
[2025-02-21] MEDS: CYMBALTA DELAYED RELEASE 60 MG PO (07:43)
[2025-02-21] MEDS: PEPCID 20 MG PO ×2 (07:43→21:10)
[2025-02-21] MEDS: LACTAID 1 CAPSULE PO ×3 (07:43→16:36)
[2025-02-21] MEDS: METAMUCIL, KONSYL 1 PACKET PO (07:44)
[2025-02-21] MEDS: OCEAN, SALINE MIST 2 SPRAYS NASAL ×4 (07:44→21:13)
[2025-02-21] MEDS: DUONEB 3 ML INH ×4 (07:47→19:02)
[2025-02-21] MEDS: SODIUM CHLORIDE 3% FOR INHALATION 1 VIAL INH ×4 (07:47→19:02)
[2025-02-21 08:08] LABS: ALT (SGPT) 55 U/L (0-35); AST (SGOT) 30 U/L (14-36); Albumin 3.4 g/dl (3.5-5.0); Alkaline Phosphatase 97 U/L (38-126); Blood Urea Nitrogen 27 mg/dl (7-17); Calcium 8.7 mg/dl (8.4-10.2); Carbon Dioxide 22 mmol/L (22-30); Chloride 100 mmol/L (98-107); Estimated Creatinine Clearance 60 ml/min; Glucose 118 mg/dl (70-99); Potassium 4.2 mmol/L (3.5-5.1); Sodium 129 mmol/L (135-145); Total Protein 6.5 g/dl (6.3-8.2); eGFR > 60.00
[2025-02-21 08:21] VITALS: BP 125/60
--- NOTE | 2025-02-21 08:55 | PN.CDI ---
CDI
- -
CDI:
Physician Documentation Request
Admit Date: 02/18/25 00:41
Dear Doctor Chio,
Clinical Indicators:
Patient admitted with COPD exacerbation with significant bronchiectatic disease.
Pulmonary consult, '...hypoxia due to acute bronchitis with URI leading to acute bronchiectasis exacerbation...Of note, based on prior PFT studies, she has no evidence of an obstructive lung defect, hence she does not have COPD'
02/20 PN, '...2/2 COPD exacerbation with significant bronchiectatic disease'
Due to potentially conflicting documentation, please clarify the patients's respiratory condition:
Acute bronchiectasis exacerbation
COPD exacerbation
Other
Unable to determine
Use of terms such as suspected, likely, concern for, or probable (associated with a specific diagnosis that is being evaluated, monitored, or treated as if it exists) are acceptable and can be coded in the inpatient setting, when documented at the
time of discharge.
Thank you,
ESTELA Harrington RN
CDI Specialist
available via tiger text
Please use your independent medical judgment in providing your response.
[2025-02-21] MEDS: MERREM 500 MG IV (10:11)
--- NOTE | 2025-02-21 10:55 | W.PN.HOSP.TC ---
Addendum entered and electronically signed by Chris Barroso MD 02/21/25 12:16:
PAtient without diagnosis of COPD, so no COPD exacerbation
Original Note:
Today's Communication/Plan
-
Merrem
ID for further Abx
Oral prednisone when ready as per pulm
Assessment / Plan
Assessment / Plan
84yo F with recurrent pneumonia 2/2 bronchiectatic disease, PMR on chronic Prednisone, Hx of fungal pneumonia, SSS s/p PPM, SVT, DM, Anxiety, HLD, HTN came with 6 days of worsening cough with yellow-colored sputum. Found exacerbation of
bronchiectatic disease with COPD exacerbation and hyponatremia.
Scheduled for appt in [facility] pulmonology dept with in Feb
A/P:
#Acute respiratory insufficiency 2/2 COPD exacerbation with significant bronchiectatic disease
Cefepime switched to MErrem on 02/21/25 as per sputum Cx growing ESBL E.coli - ID consult
COVID-19 and Influenza PCR neg
Legionella and S/pneumonia urinary Ag neg
chest PT
Encourage cough, Mucinex, hypertonic saline
Taper steroids
COnt bronchodilators
frequent repositioning in bed to allow mucus drainage
Pulm consult
Watch for hemoptysis
wean off O2
Sputum Cx with E.coli - possible aspiration - patient declined VSE
#Hyponatremia
can be 2/2 pulmonary disease
resolving on mild FR
follow NA - target correction of 6mmol/24h
SIDH 2/2 lung disease
#Mild transaminitis
improving
hepatitis panel neg
#Hyperthyroidism, subclinical
repeat TFT in 2-3 weeks with PCP
#DM type 2 with neuropathy
Acucchecks, Insulin SS, DM diet
#Reactive thrombocytosis
follow CBC
#Anxiety D/O
#Essential HTN
#SSS s/p PPM
#Insomnia
#HLD
cont home meds
#Anemia
anemia w/u
follow H&H
no overt bleeding reported
check FOBT
DVT ppx lovenox
Full code
I have spent at least 51min reviewing chart, test results, communication with consultants and daughter over the phone and providing direct patient care
Anticipated Discharge: 24 - 48 hours
Subjective/Interval History
-
Date of Service: February 21, 2025
Objective Data
-
Labs:
Laboratory Results
02/21/25
07:18
WBC 13.8 H
Hgb 9.9 L
Hct 28.6 L
Plt Count 457 H
Sodium 129 L
Potassium 4.2
Chloride 100
Carbon Dioxide 22
BUN 27 H
Creatinine 0.6
Glucose 118 H
Calcium 8.7
Total Bilirubin 0.6
AST 30
ALT 55 H
Alkaline Phosphatase 97
Vital Signs:
Vital Signs
Temp Pulse Resp BP Pulse Ox
97.6 F 72 18 125/60 92
02/21/25 08:21 02/21/25 08:21 02/21/25 08:21 02/21/25 08:21 02/21/25 08:21
I&O
02/20/25 02/21/25 02/22/25
06:59 06:59 06:59
Intake Total 240 / 240 960 / 960
Balance 240 / 240 960 / 960
Review of Systems
-
History Source: Patient
All other systems: Reviewed and negative
Respiratory: Reports Cough
Physical Exam
-
General: No Apparent Distress
HEENT: Normocephalic
Respiratory: Rales; Negative Wheezes
Cardiac: Regular Rhythm
GI: Soft, Nontender and Nondistended
Neuro: Awake, Alert, Oriented and AO x 3
Psych: Calm
[2025-02-21 12:02] LABS: Glucose - Point of Care 137 mg/dl (70-99)
--- NOTE | 2025-02-21 14:54 | CON.ID ---
Consultation
-
Date/Time Consultation Requested: 02/21/2025 7255
Date/Time Consultation Performed: 02/21/2025 1450
Requesting Provider: Dr. Barroso
Performing Provider: Dr. Perez
Reason for Consultation: ESBL E. coli recovered from respiratory culture
Chief Complaint / Past History
History of Present Illness
Marylin Vizcarra is an 84-year-old female being evaluated at the request of Dr. Barroso regarding ESBL E. coli recovered from a respiratory culture. History is obtained from chart review, along with patient interview.
The patient initially presented to [facility] on 02/17 secondary to worsening cough with increasing shortness of breath over the prior 10-14 days. She notes that initial upper respiratory symptoms seem to be consistent with a virus, and
included nasal congestion, but this progressed to increasing cough and shortness of breath over the 24 hours prior to ER evaluation. She was recently started on a course of Augmentin by her assembly machine tender. Respiratory culture obtained on 02/18 has
now revealed the presence of ESBL E. coli and Infectious Diseases asked to comment upon further antimicrobial management.
The patient admits to chills, but no fevers. She notes congestion, but with little sputum production. Since admission she reports some difficulty sleeping, but breathing is overall improved.
Past History
Additional Past Medical History:
CHF
Cardiomyopathy
GERD
HTN
HLD
Bronchiolitis
Sleep apnea
Past Surgical History: None
Allergy History:
bacitracin (From Neosporin ([id number])) Allergy (Verified 02/17/25 16:40)
OINTMENT-BLISTERS
bacitracin zinc (From Neosporin ([id number])) Allergy (Verified 02/17/25 16:40)
OINTMENT-BLISTERS
methylprednisolone (From Medrol) Allergy (Verified 02/17/25 16:40)
DOSE PACK-SEVERE REFLUX
neomycin sulfate (From Neosporin ([id number])) Allergy (Verified 02/17/25 16:40)
OINTMENT-BLISTERS
oxycodone Allergy (Verified 02/17/25 16:40)
percocet intolerance
polymyxin B (From Neosporin ([id number])) Allergy (Verified 02/17/25 16:40)
OINTMENT-BLISTERS
Sulfa (Sulfonamide Antibiotics) Allergy (Verified 02/17/25 16:40)
Unknown
Medications Reviewed: Yes
Current Antibiotics:
Meropenem 500 mg IV q.6 hours
Social History
Tobacco: Non-Smoker
Alcohol: Occasional
Drug: None
Personal:
Living: Alone
Employment: Retired
Family History
Family History: Not Pertinent
Review of Systems
Vital Signs
Temp Pulse Resp BP Pulse Ox
97.6 F 66 18 125/60 94
02/21/25 08:21 02/21/25 11:19 02/21/25 11:19 02/21/25 08:21 02/21/25 11:19
Physical Exam
Physical Exam
Constitutional: No Acute Distress, Comfortable and Non-toxic
Eyes: No Conjunctival Hemorrhage and Sclera Anicteric
Oral: No Thrush and No Ulcers
Lymph Nodes: Negative Lymphadenopathy
Cardiovascular: Regular Rate and S1/S2; Negative S3/S4 or Murmur
Pulmonary: Wheezes, Coarse and Non Labored; Negative Rhonchi
Gastrointestinal: Soft, Non Tender, Non Distended and Normal Bowel Sounds
Extremities: Negative Edema, Cyanosis or Erythema
Skin: Warm and Dry; Negative Rash or Jaundice
Neurological: Awake and Alert
Psychological: Calm
Lab / Diagnostic Study Results
02/21/25 07:18
02/21/25 07:18
Abs Immat Gran (auto) 0.3 10^3/uL (0-0.05) H 02/21/25 07:18
Absolute Neuts (auto) 12.0 10^3/uL (1.4-6.5) H 02/21/25 07:18
Absolute Lymphs (auto) 0.8 10^3/uL (1.2-3.4) L 02/21/25 07:18
Absolute Monos (auto) 0.8 10^3/uL (0.1-0.6) H 02/21/25 07:18
Absolute Basos (auto) 0.0 10^3/uL (0-0.2) 02/21/25 07:18
Immature Gran % 2.0 % (0-0.5) H 02/21/25 07:18
Neutrophils % 86.4 % (42.2-75.2) H 02/21/25 07:18
Lymphocytes % 5.9 % (20.5-51.1) L 02/21/25 07:18
Monocytes % 5.6 % (1.7-9.3) 02/21/25 07:18
Eosinophils % 0.0 % (0-6) 02/21/25 07:18
Basophils % 0.1 % (0-2) 02/21/25 07:18
Microbiology Results
Micro:
02/18/25 20:09 Respiratory Culture - Final
Sputum Escherichia coli - ESBL
Gram Stain - Final
02/18/25 20:22 Blood Culture - Preliminary
Blood/Venous No Growth in 48 hours- Final report to follow
02/18/25 20:27 Blood Culture - Preliminary
Blood/Venous No Growth in 48 hours- Final report to follow
02/18/25 12:02 Legionella Urinary Antigen - Final
Urine Negative for Legionella pneumophila Serogroup 1 antigen.
A negative result does not rule out the possiblity of
Legionella infection due to other serogroups or species of
Legionella. Clinical correlation is recommended.
Streptococcus pneumoniae Antigen (M - Final
Negative for Streptococcus pneumoniae antigen.
A negative result does not exclude infection with
Streptococcus pneumoniae. Clinical correlation is
recommended.
02/17/25 23:39 Influenza Types A & B ([facility]) - Final
Nasal Swab Negative for Influenza A & B, NAAT
Negative results must be combined with clinical observations
and patient history.
Nucleic Acid Amplification test (NAAT)performed on the
[employer] platform.
Respiratory Culture Final 02/18/2025
Few Escherichia coli - ESBL
Few Usual Respiratory Negrita
Organism 1 Escherichia coli - ESBL
1. Escherichia coli - ESBL
M.I.C. RX
--------- ---
Amoxicillin/Potas. Clavulanate 16/8 I
Ampicillin >16 R
Ampicillin/Sulbactam 16/8 I
Aztreonam >16 R
Cefazolin >16 R
Cefepime >16 R
Ceftazidime >16 R
Ceftriaxone >2 R
Ertapenem <=0.5 S
Ciprofloxacin >2 R
Gentamicin >8 R
Meropenem <=1 S
Piperacillin/Tazobactam <=8 S
Tetracycline >8 R
Tobramycin >8 R
Trimethoprim/Sulfamethoxazole >2/38 R
Imaging:
02/17/2025 CXR (2 view): scattered predominantly linear densities within both lungs, stable from exam in August 2024. No radiographic evidence for new parenchymal opacity. No evidence for pulmonary edema. Please see full dictation for additional
detail. Film personally viewed.
Assessment / Plan
Bronchitis
Exacerbation of bronchiectasis
Leukocytosis
Anemia
Hyponatremia
CHF
Cardiomyopathy
GERD
HTN
HLD
Bronchiolitis
Sleep apnea
Recommendations:
Continue antibiotic coverage of recovered ESBL E. coli, although transition to once daily or ertapenem.
Follow white count and temperature curve.
Monitor sputum production.
Monitor pulse ox.
Care Review
Plan reviewed with: Physician (Pulmonary)
[2025-02-21] MEDS: DECADRON IV (15:31)
--- NOTE | 2025-02-21 16:07 | W.PN.PUL3 ---
Today's Communication / Plan
-
Transition to meropenem
Transition to prednisone
Continue nebulizer therapy
Continue secretion clearance interventions
Will follow-up
Assessment
-
Assessment: 84-year-old female with a past medical history of non-cystic fibrosis bronchiectasis, chronic HFpEF, mitral valve regurgitation, pulmonary hypertension, history of recurrent bronchitis/pneumonia, history of sleep apnea, lichen planus
(affecting her mouth), recurrent UTI, shingles (September 2019), COVID-19 (December 2021), history of enteritis, restrictive lung disease, history of ventricular tachycardia, GERD, fibromyalgia, hypercholesterolemia and hypertension who presented with low
oxygen levels. Patient had seen her PCP on 02/17 and was COVID + flu negative. Patient endorsed shortness of breath with a productive cough. She reports that she was having URI symptoms initially with cough and congestion several days prior to
arrival which progressed. Patient was recently prescribed Augmentin by her PCP on 02/15 but her symptoms did not improve despite this. She is on chronic prednisone at 10 mg daily in the setting of PMR. In the ER she was afebrile with temperature
97.8 �F, pulse rate 79, respiratory rate 18, BP 133/64 and saturating 94% on room air. Pertinent labs showed leukocytosis to 17.2, Hb 10.2, sodium 125, chloride 94, glucose 199, slightly elevated LFTs, and urine sodium 72. Patient was flu swab
negative and COVID-19 antigen negative. CXR showed no acute cardiopulmonary process. In the ER, she was given 1 L NS 0.9%, Zofran, DuoNebs, Decadron and Zithromax. She was admitted to the hospitalist service for further care, and now pulmonary
service consulted for additional management/recommendations.
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
gastritis, IBS, hypertension, sciatica, osteoporosis, restrictive lung disease, frequent bouts of bronchitis, history of VT, history of sleep apnea, history of lichen planus (affecting the mouth), history of recurrent UTI, eczema, history of
shingles (September 2019), history of COVID-19 (December 2021), history of bronchiectasis, history of enteritis
Impression:
#Acute respiratory failure with hypoxia due to acute bronchitis with URI leading to acute bronchiectasis exacerbation
#Acute pulmonary non-CF bronchiectasis � CT on 09/02/2024 shows multifocal areas of mucoid impaction in the bronchioles with improved opacities along the minor fissures bilaterally compared to prior CTA chest in September 2018, with a consolidation in
RML, and bronchiectasis in the subpleural michelle-medial lingula + RML with mild linear opacities in the posteromedial lower lobes (L >R); on prior CT chest from August 2017 there was also a focal area of bronchiectasis within the lingula with
scattered small nodular opacities, suggestive of chronic bronchitis/bronchiolitis in the setting of possible small airway disease
#Chronic anemia
#Chronic hyponatremia (now worse as baseline is usually: 134�137)
#Iron deficiency anemia
#Transaminitis (mild)
#Abnormal TFTs with significantly low TSH and normal free T4, due to subclinical hyperthyroidism vs TSH suppression due to illness
#PMR on chronic prednisone (follows with rheumatology)
#History of restrictive lung disease with moderate gas exchange capacity defect; no evidence of COPD (most recent PFTs 09/01/2018 with T% predicted, post�BD FVC: 76%, DLCO: 55%)
Plan:
- Given her worsening cough with yellow-colored sputum and leukocytosis (albeit on chronic prednisone), I agree with antibiotics and steroid taper
- Transition to prednisone 30 mg and decrease by 10 mg every 72 hours to baseline-she is on 10 mg of prednisone for PMR at home.
- Infectious disease consulted-case discussed. She will be transition to meropenem. Will need total 10 days of antibiotics.
- Legionella + strep pneumoniae urine antigens are both negative
- Trend WBC and monitor temperature curve-improved.
- Respiratory culture positive for E. coli. Multidrug resistant-ESBL.
- In discussions with daughters apparently in 2022 she has similar bacteria.? She was told she was colonized-unable to verify. In general has 1 exacerbation per year.
- Supportive care with mucolytics (mucinex); could also add normal saline nasal spray
- Continue DuoNebs with nebulized 3% NS (which she takes at home BID) to assist with expectoration; use prn nebs for breakthrough symptoms
- Acapella
- Continue vest therapy
- Up OOB as tolerated as light activity/ambulation will also help her mobilize secretions better
- Of note, based on prior PFT studies, she has no evidence of an obstructive lung defect, hence she does not have COPD
- I personally reviewed her CT chest imaging and compared imaging studies as recent as August 2024 to studies as distant as October 2007
- She has multifocal areas of mucoid impaction in her bronchioles with persistent subpleural bronchiectasis in the RML + lingula, worsened compared to imaging in 2018, and there is evidence of chronic bronchitis/bronchiolitis with possible small
airways disease; it appears that she has had RML/lingula bronchiectasis since as early as October 2007
- It appears that throughout the years, her subpleural bronchiectatic disease in the lingula + RML have persisted and has been slowly worsening
- Previous sputum culture in September 2018 was positive for Aspergillus fumigatus - -> she was reportedly treated for this at [facility] (per the patient and daughters x2, present during this encounter)
- Recent outpatient AFB sputum Cx shows NGTD ([facility] - collected 02/15)
- Prior CTD/ANCA panel was negative; prior IgE WNL at 37 in September 2018
- No evidence of an acute process on CXR, as it appears stable compared to prior CXR in August 2024
- Maintain SpO2 >90-94% with supplemental O2 if needed
- Incentive spirometer encouraged q1hr while awake
- DVT ppx: LMWH
Case discussed with Dr. Perez. Transitioned to meropenem. Likely will require 10 days of antibiotics.
Dr. Fitch updated 2 daughters at the bedside 02/21/2025.
She previously followed with our office via Dr. Jama � has not seen us since August 2018. She now follows with Pulmonology through [facility] via Dr. Joseph Sorenson. Next appointment is next month. She is welcome to also follow with us in [facility] office
going forward if she wishes - I will leave my office info in her chart so she can decide herself.
Pulmonary service will continue to follow along.
Data:
CXR 02/17/2025: Stable radiographic appearance. No evidence of active cardiopulmonary disease.
CTA chest/abdomen/pelvis 09/02/2024:
No evidence of central pulmonary embolism.
Areas of opacity in the right upper lobe, left upper lobe and right middle lobe overall smaller in volume in comparison to remote prior CTA chest, most likely representing some residual areas of scarring.
Some prominent interstitial markings throughout the lungs bilaterally, predominantly peripherally which may all be chronic although acute superimposed interstitial edema/pneumonitis superimposed upon some chronic interstitial changes cannot be
excluded. Some changes of bronchiectasis also suspected. No pneumothorax or pleural effusion.
Some nondistended fluid-filled loops of small bowel, nonspecific. Cannot exclude mild small bowel enteritis.
Colonic diverticulosis. No intestinal obstruction or free air.
Subcentimeter low-attenuation left renal lesion too small to characterize.
Pelvic pessary in position.
Subjective Data
-
Date of Service:
Date of Service: February 21, 2025
Chief Complaint: Pulmonary Follow Up
Subjective:
Continues to have cough and congestion
Overall feels better
Review of Systems
General: Fever (n)
Cardiopulmonary: Dyspnea (n), Cough and Sputum Production
GI: Abdominal Pain (n)
Objective Data
Data Reviewed
Vital Signs / I&O / Oxygen:
Vital Signs
Temp Pulse Resp BP Pulse Ox
97.6 F 77 18 125/60 92
02/21/25 08:21 02/21/25 15:22 02/21/25 15:22 02/21/25 08:21 02/21/25 15:22
Intake and Output
02/20/25 02/21/25 02/22/25
06:59 06:59 06:59
Intake Total 240 / 240 960 / 960
Balance 240 / 240 960 / 960
SaO2 92
Nasal Cannula flow liters per 2
minute
Physical Exam
General: Respiratory Distress (n), Comfortable, Chills (n), Sweats (n) and Other (elderly female, in NAD with no conversational dyspnea)
HEENT: Normocephalic and Anicteric
Cardiovascular: S1-S2 and Peripheral Edema (n)
Respiratory: Wheeze, Crackles, Rhonchi (n), Non-Labored Respirations and Other (diminished breath sounds bilaterally)
GI: Soft, Non Distended, Non Tender and Normal Bowel Sounds
Neurology: Awake, Alert, Oriented and Tremors (n)
Skin: Warm, Dry, Cyanosis (n) and Jaundice (n)
Labs/Micro/Reports
Lab Data
02/21/25 07:18
02/21/25 07:18
Microbiology
02/18/25 20:09 Sputum Respiratory Culture - Final
Escherichia coli - ESBL
02/18/25 20:09 Sputum Gram Stain - Final
02/18/25 20:22 Blood/Venous Blood Culture - Preliminary
No Growth in 48 hours- Final report to follow
02/18/25 20:27 Blood/Venous Blood Culture - Preliminary
No Growth in 48 hours- Final report to follow
02/18/25 12:02 Urine Legionella Urinary Antigen - Final
Negative for Legionella pneumophila Serogroup 1 antigen.
A negative result does not rule out the possiblity of
Legionella infection due to other serogroups or species of
Legionella. Clinical correlation is recommended.
02/18/25 12:02 Urine Streptococcus pneumoniae Antigen (M - Final
Negative for Streptococcus pneumoniae antigen.
A negative result does not exclude infection with
Streptococcus pneumoniae. Clinical correlation is
recommended.
[2025-02-21] MEDS: INVANZ 60 MG IV (16:35)
[2025-02-21] MEDS: LOVENOX SC (16:36)
[2025-02-21 16:49] LABS: Glucose - Point of Care 115 mg/dl (70-99)
[2025-02-21 17:07] VITALS: BP 110/68
[2025-02-21 17:09] VITALS: BP 140/71
[2025-02-21] MEDS: NEURONTIN 100 MG PO (21:13)
[2025-02-21] MEDS: LIPITOR 10 MG PO (21:13)
[2025-02-21] MEDS: RESTORIL 7.5 MG PO (21:14)
[2025-02-21 21:33] LABS: Glucose - Point of Care 177 mg/dl (70-99)
[2025-02-21 23:05] VITALS: BP 137/77
[2025-02-22 05:49] LABS: Hematocrit 27.0 % (37.0-47.0); Hemoglobin 9.4 g/dL (12.0-16.0); Mean Corp Hgb Conc. 34.8 g/dL (33.0-37.0); Mean Corpuscular Volume 92.2 fL (81.0-99.0); Nucleated Red Blood Cells % 0.2 %; Platelet Count 410 10^3/uL (130-400); Red Cell Dist. Width 14.4 % (11.5-14.5)
[2025-02-22 06:00] VITALS: BMI 24.2
[2025-02-22 06:21] LABS: ALT (SGPT) 46 U/L (0-35); AST (SGOT) 22 U/L (14-36); Albumin 3.2 g/dl (3.5-5.0); Alkaline Phosphatase 87 U/L (38-126); Blood Urea Nitrogen 25 mg/dl (7-17); Calcium 8.4 mg/dl (8.4-10.2); Carbon Dioxide 27 mmol/L (22-30); Chloride 100 mmol/L (98-107); Estimated Creatinine Clearance 60 ml/min; Glucose 101 mg/dl (70-99); Potassium 4.2 mmol/L (3.5-5.1); Sodium 130 mmol/L (135-145); Total Protein 6.0 g/dl (6.3-8.2); eGFR > 60.00
[2025-02-22 07:26] LABS: Glucose - Point of Care 92 mg/dl (70-99)
[2025-02-22 07:30] VITALS: BP 130/68
[2025-02-22] MEDS: NOVOLOG FLEXPEN-LOW RESISTANCE SC ×2 (07:43→11:22)
[2025-02-22] MEDS: DUONEB 3 ML INH ×3 (07:57→15:19)
[2025-02-22] MEDS: SODIUM CHLORIDE 3% FOR INHALATION 1 VIAL INH ×4 (07:58→19:56)
[2025-02-22] MEDS: COREG 6.25 MG PO ×2 (08:16→21:13)
[2025-02-22] MEDS: LACTAID 1 CAPSULE PO ×3 (08:16→16:01)
[2025-02-22] MEDS: METAMUCIL, KONSYL 1 PACKET PO (08:16)
[2025-02-22] MEDS: PEPCID 20 MG PO ×2 (08:17→21:14)
[2025-02-22] MEDS: CYMBALTA DELAYED RELEASE 30 MG PO (08:17)
[2025-02-22] MEDS: DELTASONE 30 MG PO (08:17)
[2025-02-22] MEDS: CARDIZEM CD 180 MG PO ×2 (08:18→21:07)
[2025-02-22] MEDS: COZAAR 25 MG PO (08:18)
[2025-02-22] MEDS: MUCINEX 1200 MG PO ×2 (08:18→21:13)
[2025-02-22] MEDS: OCEAN, SALINE MIST 2 SPRAYS NASAL ×4 (08:19→21:15)
[2025-02-22 10:58] LABS: Glucose - Point of Care 123 mg/dl (70-99)
--- NOTE | 2025-02-22 11:48 | W.PN.PUL3 ---
Today's Communication / Plan
-
Prednisone taper
Nebulizers, 3% saline, vest therapy for secretion clearance.
Meropenem
Increase activity as able
Overall clinically improved
Assessment
-
Assessment: 84-year-old female with a past medical history of non-cystic fibrosis bronchiectasis, chronic HFpEF, mitral valve regurgitation, pulmonary hypertension, history of recurrent bronchitis/pneumonia, history of sleep apnea, lichen planus
(affecting her mouth), recurrent UTI, shingles (September 2019), COVID-19 (December 2021), history of enteritis, restrictive lung disease, history of ventricular tachycardia, GERD, fibromyalgia, hypercholesterolemia and hypertension who presented with low
oxygen levels. Patient had seen her PCP on 02/17 and was COVID + flu negative. Patient endorsed shortness of breath with a productive cough. She reports that she was having URI symptoms initially with cough and congestion several days prior to
arrival which progressed. Patient was recently prescribed Augmentin by her PCP on 02/15 but her symptoms did not improve despite this. She is on chronic prednisone at 10 mg daily in the setting of PMR. In the ER she was afebrile with temperature
97.8 �F, pulse rate 79, respiratory rate 18, BP 133/64 and saturating 94% on room air. Pertinent labs showed leukocytosis to 17.2, Hb 10.2, sodium 125, chloride 94, glucose 199, slightly elevated LFTs, and urine sodium 72. Patient was flu swab
negative and COVID-19 antigen negative. CXR showed no acute cardiopulmonary process. In the ER, she was given 1 L NS 0.9%, Zofran, DuoNebs, Decadron and Zithromax. She was admitted to the hospitalist service for further care, and now pulmonary
service consulted for additional management/recommendations.
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
gastritis, IBS, hypertension, sciatica, osteoporosis, restrictive lung disease, frequent bouts of bronchitis, history of VT, history of sleep apnea, history of lichen planus (affecting the mouth), history of recurrent UTI, eczema, history of
shingles (September 2019), history of COVID-19 (December 2021), history of bronchiectasis, history of enteritis
Impression:
#Acute respiratory failure with hypoxia due to acute bronchitis with URI leading to acute bronchiectasis exacerbation
#Acute pulmonary non-CF bronchiectasis � CT on 09/02/2024 shows multifocal areas of mucoid impaction in the bronchioles with improved opacities along the minor fissures bilaterally compared to prior CTA chest in September 2018, with a consolidation in
RML, and bronchiectasis in the subpleural michelle-medial lingula + RML with mild linear opacities in the posteromedial lower lobes (L >R); on prior CT chest from August 2017 there was also a focal area of bronchiectasis within the lingula with
scattered small nodular opacities, suggestive of chronic bronchitis/bronchiolitis in the setting of possible small airway disease
#Chronic anemia
#Chronic hyponatremia (now worse as baseline is usually: 134�137)
#Iron deficiency anemia
#Transaminitis (mild)
#Abnormal TFTs with significantly low TSH and normal free T4, due to subclinical hyperthyroidism vs TSH suppression due to illness
#PMR on chronic prednisone (follows with rheumatology)
#History of restrictive lung disease with moderate gas exchange capacity defect; no evidence of COPD (most recent PFTs 09/01/2018 with T% predicted, post�BD FVC: 76%, DLCO: 55%)
Plan:
- Bronchiectasis exacerbation-tracheobronchitis. Chest x-ray is clear.
- Transition to prednisone 30 mg and decrease by 10 mg every 72 hours to baseline-she is on 10 mg of prednisone for PMR at home.
- Infectious disease consulted-case discussed. She will be transition to meropenem. Will need total 10 days of antibiotics.
- Legionella + strep pneumoniae urine antigens are both negative
- Trend WBC and monitor temperature curve-improved.
- Respiratory culture positive for E. coli. Multidrug resistant-ESBL.
- In discussions with daughters apparently in 2022 she has similar bacteria.? She was told she was colonized-unable to verify. In general has 1 exacerbation per year.
- Started on meropenem 02/21/2025.
-
Not bronchospastic on exam. Overall feels that symptoms are improving.
- Supportive care with mucolytics (mucinex); could also add normal saline nasal spray
- Continue DuoNebs with nebulized 3% NS (which she takes at home BID) to assist with expectoration; use prn nebs for breakthrough symptoms
- Acapella
- Continue vest therapy
- Up OOB as tolerated as light activity/ambulation will also help her mobilize secretions better
Previous history:
- Of note, based on prior PFT studies, she has no evidence of an obstructive lung defect, hence she does not have COPD
- I personally reviewed her CT chest imaging and compared imaging studies as recent as August 2024 to studies as distant as October 2007
- She has multifocal areas of mucoid impaction in her bronchioles with persistent subpleural bronchiectasis in the RML + lingula, worsened compared to imaging in 2018, and there is evidence of chronic bronchitis/bronchiolitis with possible small
airways disease; it appears that she has had RML/lingula bronchiectasis since as early as October 2007
- It appears that throughout the years, her subpleural bronchiectatic disease in the lingula + RML have persisted and has been slowly worsening
- Previous sputum culture in September 2018 was positive for Aspergillus fumigatus - -> she was reportedly treated for this at [facility] (per the patient and daughters x2, present during this encounter)
- Recent outpatient AFB sputum Cx shows NGTD ([facility] - collected 02/15)
- Prior CTD/ANCA panel was negative; prior IgE WNL at 37 in September 2018
- No evidence of an acute process on CXR, as it appears stable compared to prior CXR in August 2024
- Not on oxygen supplementation.
- Incentive spirometer encouraged q1hr while awake
- DVT ppx: LMWH
Case discussed with Dr. Perez. Transitioned to meropenem. Likely will require 10 days of antibiotics.
Defer antibiotics to infectious disease.
Dr. Fitch updated 2 daughters at the bedside 02/21/2025.
She previously followed with our office via Dr. Jama � has not seen us since August 2018. She now follows with Pulmonology through [facility] via Dr. Joseph Sorenson. Next appointment is next month. She is welcome to also follow with us in [facility] office
going forward if she wishes - I will leave my office info in her chart so she can decide herself.
Pulmonary service will continue to follow along.
Data:
CXR 02/17/2025: Stable radiographic appearance. No evidence of active cardiopulmonary disease.
CTA chest/abdomen/pelvis 09/02/2024:
No evidence of central pulmonary embolism.
Areas of opacity in the right upper lobe, left upper lobe and right middle lobe overall smaller in volume in comparison to remote prior CTA chest, most likely representing some residual areas of scarring.
Some prominent interstitial markings throughout the lungs bilaterally, predominantly peripherally which may all be chronic although acute superimposed interstitial edema/pneumonitis superimposed upon some chronic interstitial changes cannot be
excluded. Some changes of bronchiectasis also suspected. No pneumothorax or pleural effusion.
Some nondistended fluid-filled loops of small bowel, nonspecific. Cannot exclude mild small bowel enteritis.
Colonic diverticulosis. No intestinal obstruction or free air.
Subcentimeter low-attenuation left renal lesion too small to characterize.
Pelvic pessary in position.
Subjective Data
-
Date of Service:
Date of Service: February 22, 2025
Chief Complaint: Pulmonary Follow Up
Subjective:
Overall feels better
Continues to have intermittent coughing
Ambulating around the the room without significant shortness of breath.
Tolerating diet
Objective Data
Data Reviewed
Vital Signs / I&O / Oxygen:
Vital Signs
Temp Pulse Resp BP Pulse Ox
98.0 F 93 20 130/68 94
02/22/25 07:30 02/22/25 11:43 02/22/25 11:43 02/22/25 08:16 02/22/25 11:43
Intake and Output
02/21/25 02/22/25 02/23/25
06:59 06:59 06:59
Intake Total 960 / 960 480 / 480
Balance 960 / 960 480 / 480
SaO2 94
Nasal Cannula flow liters per 2
minute
Physical Exam
General: Respiratory Distress (n), Comfortable, Chills (n), Sweats (n) and Other (elderly female, in NAD with no conversational dyspnea)
HEENT: Normocephalic and Anicteric
Cardiovascular: S1-S2 and Peripheral Edema (n)
Respiratory: Wheeze, Crackles, Rhonchi (n), Non-Labored Respirations and Other (diminished breath sounds bilaterally)
GI: Soft, Non Distended, Non Tender and Normal Bowel Sounds
Neurology: Awake, Alert, Oriented and Tremors (n)
Skin: Warm, Dry, Cyanosis (n) and Jaundice (n)
Labs/Micro/Reports
Lab Data
02/22/25 05:37
02/22/25 05:37
Microbiology
02/18/25 20:27 Blood/Venous Blood Culture - Preliminary
No Growth in 72 hours- Final report to follow
02/18/25 20:22 Blood/Venous Blood Culture - Preliminary
No Growth in 72 hours- Final report to follow
02/18/25 20:09 Sputum Respiratory Culture - Final
Escherichia coli - ESBL
02/18/25 20:09 Sputum Gram Stain - Final
--- NOTE | 2025-02-22 13:29 | W.PN.HOSP.TC ---
Today's Communication/Plan
-
Continue ertapenem
Assessment / Plan
Assessment / Plan
Impression:
84yo F with recurrent pneumonia 2/2 bronchiectatic disease, PMR on chronic Prednisone, Hx of fungal pneumonia, SSS s/p PPM, SVT, DM, Anxiety, HLD, HTN came with 6 days of worsening cough with yellow-colored sputum. Found exacerbation of
bronchiectatic disease with COPD exacerbation and hyponatremia.
Scheduled for appt in [facility] pulmonology dept with in Feb
A/P:
#Acute respiratory failure 2/2 COPD exacerbation with significant bronchiectatic disease
Cefepime switched to ertapenem on 02/21/25 as per sputum Cx growing ESBL E.coli - ID consult
COVID-19 and Influenza PCR neg
Legionella and S/pneumonia urinary Ag neg
chest PT
Encourage cough, Mucinex, hypertonic saline
Taper steroids
COnt bronchodilators
frequent repositioning in bed to allow mucus drainage
Pulm consult
Watch for hemoptysis
wean off O2
Sputum Cx with E.coli - possible aspiration - patient declined VSE
#Hyponatremia
can be 2/2 pulmonary disease
resolving on mild FR
follow NA - target correction of 6mmol/24h
SIDH 2/2 lung disease
#Mild transaminitis
improving
hepatitis panel neg
#Hyperthyroidism, subclinical
repeat TFT in 2-3 weeks with PCP
#DM type 2 with neuropathy
Acucchecks, Insulin SS, DM diet
#Reactive thrombocytosis
follow CBC
#Anxiety D/O
#Essential HTN
#SSS s/p PPM
#Insomnia
#HLD
cont home meds
#Anemia
anemia w/u
follow H&H
no overt bleeding reported
check FOBT
CODE STATUS: Full code
DVT prophylaxis: Lovenox
Diet: Regular diet
Disposition: Continue ertapenem
Total time spent on today's encounter was 55 minutes which included time spent in counseling the patient/family regarding diagnosis and treatment plan as listed above, goals of care, and symptom management. Case was discussed with nursing staff,
specialists, and care coordinators/case management. All labs and imaging personally reviewed by me. Remainder the time spent in detailed review of previous records, lab data, imaging, and other medical provider documentation.
Anticipated Discharge: 24 - 48 hours
Subjective/Interval History
-
Date of Service: February 22, 2025
Patient seen and examined at bedside, denies any chest pain still was coughing and shortness of breath, no abdominal pain, no nausea, no vomiting, no diarrhea or constipation.
Objective Data
-
Labs:
Laboratory Results
02/22/25
05:37
WBC 10.7
Hgb 9.4 L
Hct 27.0 L
Plt Count 410 H
Sodium 130 L
Potassium 4.2
Chloride 100
Carbon Dioxide 27
BUN 25 H
Creatinine 0.6
Glucose 101 H
Calcium 8.4
Total Bilirubin 0.5
AST 22
ALT 46 H
Alkaline Phosphatase 87
Vital Signs:
Vital Signs
Temp Pulse Resp BP Pulse Ox
98.0 F 93 20 130/68 94
02/22/25 07:30 02/22/25 11:43 02/22/25 11:43 02/22/25 08:16 02/22/25 11:43
I&O
02/21/25 02/22/25 02/23/25
06:59 06:59 06:59
Intake Total 960 / 960 480 / 480
Balance 960 / 960 480 / 480
Physical Exam
-
General: Well Developed, Well Nourished, No Apparent Distress and Comfortable
HEENT: Normocephalic, Atraumatic, Moist Mucous Membranes, No Ptosis, PERRLA and Nose Appears Normal
Respiratory: Wheezes, Rales, Rhonchi, Crackles and Non Labored Respirations
Cardiac: Regular Rhythm and S1/S2
Breast: Deferred by me
GI: Soft, Nontender, Nondistended and Normal Bowel Sounds
Genito-urinary: No Costovertebral Tender
Musculoskeletal: No Clubbing, No Cyanosis and No Edema
Skin: Warm
Neuro: Awake, Alert, Oriented, AO x 3 and No Motor Deficits
Psych: Calm
Data Reviewed
-
Diagnostic Radiology: Image personally visualized and interpreted and Report Reviewed by me
CT Scan: Image personally visualized and interpreted and Report Reviewed by me
Ultrasound: Image personally visualized and interpreted and Report Reviewed by me
MRI: Image personally visualized and interpreted and Report Reviewed by me
Medical Tests (Nuc Med, Echo etc): Image personally visualized and interpreted and Report Reviewed by me
Labs: Labs Reviewed by me
Old Records: Reviewed
--- NOTE | 2025-02-22 14:56 | CM ---
Chart reviewed. On room air now
Cefepime switched to ertapenem on 02/21/25. Will watch for final ID recs
CM will cont to follow for d/c needs
Plan: Home, no needs at this time
--- NOTE | 2025-02-22 15:25 | W.PN.ID1 ---
Date of Service
Date of Service: February 22, 2025
Today's Communication
Continue antibiotics.
Assessment / Plan
Bronchitis +/- early PNA
Recovery of ESBL E. coli from sputum
Exacerbation of bronchiectasis
Leukocytosis
Anemia
Hyponatremia
CHF
Cardiomyopathy
GERD
HTN
HLD
Bronchiolitis
Sleep apnea
Recommendations:
Continue ertapenem in the treatment of recovered ESBL E. coli.
Follow white count and temperature curve.
Monitor sputum production.
Monitor pulse ox.
Chief Complaint
-: Other (Exac bronchiectasis)
Subjective / Review of Systems
Review of Systems: No Fever and No Chills
Vital Signs / Physical Exam
Vital Signs
Vital Signs
Temp Pulse Resp BP Pulse Ox
98.0 F 95 20 130/68 94
02/22/25 07:30 02/22/25 15:21 02/22/25 15:21 02/22/25 08:16 02/22/25 15:21
Physical Exam
Constitutional: No Acute Distress, Comfortable and Non-toxic
Cardiovascular: S1/S2; Negative S3/S4
Pulmonary: Clear, Coarse and Non Labored
Gastrointestinal: Soft and Non Tender
Extremities: Negative Cyanosis
Neurological: Awake and Alert
Psychological: Calm
Objective Data
Lab Data
Lab Results
02/22/25 05:37
02/22/25 05:37
Estimated Creat Clear 60 ml/min 02/22/25 05:37
Total Bilirubin 0.5 mg/dl (0.2-1.3) 02/22/25 05:37
AST 22 U/L (14-36) 02/22/25 05:37
ALT 46 U/L (0-35) H 02/22/25 05:37
Alkaline Phosphatase 87 U/L (38-126) 02/22/25 05:37
Most recent labs reviewed.
Micro Results:
02/18/25 20:27 Blood Culture - Preliminary
Blood/Venous No Growth in 72 hours- Final report to follow
02/18/25 20:22 Blood Culture - Preliminary
Blood/Venous No Growth in 72 hours- Final report to follow
02/18/25 20:09 Respiratory Culture - Final
Sputum Escherichia coli - ESBL
Gram Stain - Final
02/18/25 12:02 Legionella Urinary Antigen - Final
Urine Negative for Legionella pneumophila Serogroup 1 antigen.
A negative result does not rule out the possiblity of
Legionella infection due to other serogroups or species of
Legionella. Clinical correlation is recommended.
Streptococcus pneumoniae Antigen (M - Final
Negative for Streptococcus pneumoniae antigen.
A negative result does not exclude infection with
Streptococcus pneumoniae. Clinical correlation is
recommended.
02/17/25 23:39 Influenza Types A & B (SHELLEY) - Final
Nasal Swab Negative for Influenza A & B, NAAT
Negative results must be combined with clinical observations
and patient history.
Nucleic Acid Amplification test (NAAT)performed on the
[employer] platform.
Respiratory Culture Final 02/18/2025
Few Escherichia coli - ESBL
Few Usual Respiratory Negrita
Organism 1 Escherichia coli - ESBL
1. Escherichia coli - ESBL
M.I.C. RX
--------- ---
Amoxicillin/Potas. Clavulanate 16/8 I
Ampicillin >16 R
Ampicillin/Sulbactam 16/8 I
Aztreonam >16 R
Cefazolin >16 R
Cefepime >16 R
Ceftazidime >16 R
Ceftriaxone >2 R
Ertapenem <=0.5 S
Ciprofloxacin >2 R
Gentamicin >8 R
Meropenem <=1 S
Piperacillin/Tazobactam <=8 S
Tetracycline >8 R
Tobramycin >8 R
Trimethoprim/Sulfamethoxazole >2/38 R
Imaging:
02/17/2025 CXR (2 view): scattered predominantly linear densities within both lungs, stable from exam in August 2024. No radiographic evidence for new parenchymal opacity. No evidence for pulmonary edema. Please see full dictation for additional
detail. Film personally viewed.
[2025-02-22 15:30] VITALS: BP 136/66
[2025-02-22 15:41] LABS: Glucose - Point of Care 216 mg/dl (70-99)
[2025-02-22] MEDS: NOVOLOG FLEXPEN-LOW RESISTANCE 2 UNITS SC (16:01)
[2025-02-22] MEDS: INVANZ 60 MG IV (16:01)
[2025-02-22] MEDS: LOVENOX SC (16:03)
[2025-02-22 17:20] LABS: Glucose - Point of Care 131 mg/dl (70-99)
[2025-02-22] MEDS: MYCOSTATIN ORAL SUSPENSION 5 ML PO ×2 (18:02→21:14)
[2025-02-22] MEDS: VENTOLIN NEBULES 2.5 MG INH (19:55)
[2025-02-22 21:12] VITALS: BP 150/80
[2025-02-22] MEDS: NEURONTIN 100 MG PO (21:14)
[2025-02-22] MEDS: LIPITOR 10 MG PO (21:14)
[2025-02-22] MEDS: TYLENOL 650 MG PO (21:17)
[2025-02-22] MEDS: RESTORIL 7.5 MG PO (21:17)
[2025-02-22 21:45] LABS: Glucose - Point of Care 128 mg/dl (70-99)
[2025-02-22 23:05] VITALS: BP 135/69
--- NOTE | 2025-02-23 01:04 | PTCARENOTE ---
Pt is AAOx3, rings call victor appropriately, self, with steady gait upon time of assessment. Pt refused bed alarm. Bed locked, in lowest position, call victor in reach. Pt education provided.
[2025-02-23 06:00] VITALS: BMI 23.7
[2025-02-23 07:23] LABS: Glucose - Point of Care 78 mg/dl (70-99)
[2025-02-23 07:30] VITALS: BP 162/99
[2025-02-23] MEDS: COZAAR 25 MG PO (08:23)
[2025-02-23] MEDS: NOVOLOG FLEXPEN-LOW RESISTANCE SC ×3 (08:23→18:01)
[2025-02-23] MEDS: MUCINEX 1200 MG PO ×2 (08:24→20:47)
[2025-02-23] MEDS: CYMBALTA DELAYED RELEASE 30 MG PO (08:24)
[2025-02-23] MEDS: METAMUCIL, KONSYL 1 PACKET PO (08:24)
[2025-02-23] MEDS: CARDIZEM CD 180 MG PO ×2 (08:24→20:48)
[2025-02-23] MEDS: DELTASONE 30 MG PO (08:24)
[2025-02-23] MEDS: MYCOSTATIN ORAL SUSPENSION 5 ML PO ×4 (08:25→22:55)
[2025-02-23] MEDS: COREG 6.25 MG PO ×2 (08:25→20:48)
[2025-02-23] MEDS: PEPCID 20 MG PO ×2 (08:25→20:48)
[2025-02-23] MEDS: LACTAID 1 CAPSULE PO ×3 (08:31→18:01)
[2025-02-23] MEDS: OCEAN, SALINE MIST 2 SPRAYS NASAL ×4 (08:35→22:56)
--- NOTE | 2025-02-23 10:36 | CM ---
Addendum entered by Stanton Gomez 02/23/25 14:00:
Received call from Soniya. Met w/ patient bedside, reviewed benefits. Per Soniya, [facility] will provide nursing. Teaching will be done w/ patient's daughter at home
Original Note:
Chart reviewed. Patient will need continuous IV abx at discharge. Script on chart
Met w/ patient bedside, discussed IV abx need. Patient stated her daughter, whom, she lives with, will be able to administer. Daughter assisted w/ infusion a year ago per patient. Patient preferred [facility].
Spoke w/ Soniya/[facility] nurse liaison, regarding referral. Faxed script and clinicals to [facility]. Per Soniya, will plan to see patient bedside this afternoon. Will review insurance benefits and update CM.
Plan: Home w/ IV abx through [facility]
[2025-02-23 11:06] LABS: Glucose - Point of Care 114 mg/dl (70-99)
--- NOTE | 2025-02-23 13:33 | W.PN.ID1 ---
Date of Service
Date of Service: February 23, 2025
Today's Communication
Continue antibiotics
Assessment / Plan
Bronchitis +/- early PNA
Recovery of ESBL E. coli from sputum
Exacerbation of bronchiectasis
Leukocytosis
Anemia
Hyponatremia
CHF
Cardiomyopathy
GERD
HTN
HLD
Bronchiolitis
Sleep apnea
Recommendations:
Continue ertapenem (d#3) in the treatment of recovered ESBL E. coli. Would complete a 10-14 day course.
Prescription placed on paper chart.
Midline ordered.
Follow white count and temperature curve.
Monitor sputum production.
Monitor pulse ox.
����������������������������������������������������������
Chief Complaint
-: Other (Exac bronchiectasis)
Subjective / Review of Systems
Review of Systems: No Fever, No Chills, Cough and No Sputum Production
Vital Signs / Physical Exam
Vital Signs
Vital Signs
Temp Pulse Resp BP Pulse Ox
98.3 F 65 20 162/99 90
02/23/25 07:30 02/23/25 07:30 02/23/25 07:30 02/23/25 08:23 02/23/25 07:30
Physical Exam
Constitutional: No Acute Distress, Comfortable and Non-toxic
Cardiovascular: S1/S2; Negative S3/S4
Pulmonary: Clear, Coarse and Non Labored
Gastrointestinal: Soft and Non Tender
Extremities: Negative Cyanosis
Neurological: Awake and Alert
Psychological: Calm
Objective Data
Lab Data
Lab Results
02/22/25 05:37
02/22/25 05:37
Estimated Creat Clear 60 ml/min 02/22/25 05:37
Total Bilirubin 0.5 mg/dl (0.2-1.3) 02/22/25 05:37
AST 22 U/L (14-36) 02/22/25 05:37
ALT 46 U/L (0-35) H 02/22/25 05:37
Alkaline Phosphatase 87 U/L (38-126) 02/22/25 05:37
Most recent labs reviewed.
Micro Results:
02/18/25 20:22 Blood Culture - Preliminary
Blood/Venous No Growth in 4 days- Final report to follow
02/18/25 20:27 Blood Culture - Preliminary
Blood/Venous No Growth in 4 days- Final report to follow
02/18/25 20:09 Respiratory Culture - Final
Sputum Escherichia coli - ESBL
Gram Stain - Final
02/18/25 12:02 Legionella Urinary Antigen - Final
Urine Negative for Legionella pneumophila Serogroup 1 antigen.
A negative result does not rule out the possiblity of
Legionella infection due to other serogroups or species of
Legionella. Clinical correlation is recommended.
Streptococcus pneumoniae Antigen (M - Final
Negative for Streptococcus pneumoniae antigen.
A negative result does not exclude infection with
Streptococcus pneumoniae. Clinical correlation is
recommended.
02/17/25 23:39 Influenza Types A & B (SHELLEY) - Final
Nasal Swab Negative for Influenza A & B, NAAT
Negative results must be combined with clinical observations
and patient history.
Nucleic Acid Amplification test (NAAT)performed on the
[employer] platform.
Respiratory Culture Final 02/18/2025
Few Escherichia coli - ESBL
Few Usual Respiratory Negrita
Organism 1 Escherichia coli - ESBL
1. Escherichia coli - ESBL
M.I.C. RX
--------- ---
Amoxicillin/Potas. Clavulanate 05/11 I
Ampicillin >16 R
Ampicillin/Sulbactam 05/11 I
Aztreonam >16 R
Cefazolin >16 R
Cefepime >16 R
Ceftazidime >16 R
Ceftriaxone >2 R
Ertapenem <=0.5 S
Ciprofloxacin >2 R
Gentamicin >8 R
Meropenem <=1 S
Piperacillin/Tazobactam <=8 S
Tetracycline >8 R
Tobramycin >8 R
Trimethoprim/Sulfamethoxazole >2/38 R
Imaging:
02/17/2025 CXR (2 view): scattered predominantly linear densities within both lungs, stable from exam in August 2024. No radiographic evidence for new parenchymal opacity. No evidence for pulmonary edema. Please see full dictation for additional
detail. Film personally viewed.
--- NOTE | 2025-02-23 14:17 | W.PN.HOSP.TC ---
Today's Communication/Plan
-
Continue ertapenem --> arrange for home infusion
Assessment / Plan
Assessment / Plan
Impression:
84yo F with recurrent pneumonia 2/2 bronchiectatic disease, PMR on chronic Prednisone, Hx of fungal pneumonia, SSS s/p PPM, SVT, DM, Anxiety, HLD, HTN came with 6 days of worsening cough with yellow-colored sputum. Found exacerbation of
bronchiectatic disease with COPD exacerbation and hyponatremia.
Scheduled for appt in [facility] pulmonology dept with in Feb
Assessment/plan:
#Acute respiratory failure 2/2 COPD exacerbation with significant bronchiectatic disease
Cefepime switched to ertapenem on 02/21/25 as per sputum Cx growing ESBL E.coli - ID consult
COVID-19 and Influenza PCR neg
Legionella and S/pneumonia urinary Ag neg
chest PT
Encourage cough, Mucinex, hypertonic saline
Taper steroids
COnt bronchodilators
frequent repositioning in bed to allow mucus drainage
Pulm consult
Watch for hemoptysis
wean off O2
Sputum Cx with E.coli - possible aspiration - patient declined VSE
02/23
Infectious disease recommending 10 to 14 days IV antibiotic.
Today is day 3.
Will need arrangement for home infusion
#Hyponatremia
Stable
#Mild transaminitis
improving
hepatitis panel neg
#Hyperthyroidism, subclinical
repeat TFT in 2-3 weeks with PCP
#DM type 2 with neuropathy
Acucchecks, Insulin SS, DM diet
#Reactive thrombocytosis
follow CBC
#Anxiety D/O
#Essential HTN
#SSS s/p PPM
#Insomnia
#HLD
cont home meds
#Anemia
anemia w/u
follow H&H
no overt bleeding reported
check FOBT
CODE STATUS: Full code
DVT prophylaxis: Lovenox
Diet: Regular diet
Disposition: Continue ertapenem --> arrange for home infusion
Total time spent on today's encounter was 55 minutes which included time spent in counseling the patient/family regarding diagnosis and treatment plan as listed above, goals of care, and symptom management. Case was discussed with nursing staff,
specialists, and care coordinators/case management. All labs and imaging personally reviewed by me. Remainder the time spent in detailed review of previous records, lab data, imaging, and other medical provider documentation.
Anticipated Discharge: 24 - 48 hours
Subjective/Interval History
-
Date of Service: February 23, 2025
Patient seen and examined at bedside, denies any chest pain , has more productive coughing today, improved shortness of breath, no abdominal pain, no nausea, no vomiting, no diarrhea or constipation.
Objective Data
-
Vital Signs:
Vital Signs
Temp Pulse Resp BP Pulse Ox
98.3 F 65 20 162/99 90
02/23/25 07:30 02/23/25 07:30 02/23/25 07:30 02/23/25 08:23 02/23/25 07:30
I&O
02/22/25 02/23/25 02/24/25
06:59 06:59 06:59
Intake Total 480 / 480 1080 / 1080
Balance 480 / 480 1080 / 1080
Physical Exam
-
General: Well Developed, Well Nourished, No Apparent Distress and Comfortable
HEENT: Normocephalic, Atraumatic, Moist Mucous Membranes, No Ptosis, PERRLA and Nose Appears Normal
Respiratory: Wheezes, Rales, Rhonchi, Crackles and Non Labored Respirations
Cardiac: Regular Rhythm and S1/S2
Breast: Deferred by me
GI: Soft, Nontender, Nondistended and Normal Bowel Sounds
Genito-urinary: No Costovertebral Tender
Musculoskeletal: No Clubbing, No Cyanosis and No Edema
Skin: Warm
Neuro: Awake, Alert, Oriented, AO x 3 and No Motor Deficits
Psych: Calm
[2025-02-23] MEDS: VENTOLIN NEBULES 2.5 MG INH (14:37)
[2025-02-23 15:30] VITALS: BP 138/76
[2025-02-23] MEDS: INVANZ 60 MG IV (16:09)
--- NOTE | 2025-02-23 16:11 | W.PN.PUL3 ---
Today's Communication / Plan
-
Cont. Secretion clearance interventions.
VEST
IS
Continued nebulizer therapy
IV ABX set up
prednisone, decrease by 10mg very 72hr to baseline of 10mg
Will follow
Assessment
-
Assessment: 84-year-old female with a past medical history of non-cystic fibrosis bronchiectasis, chronic HFpEF, mitral valve regurgitation, pulmonary hypertension, history of recurrent bronchitis/pneumonia, history of sleep apnea, lichen planus
(affecting her mouth), recurrent UTI, shingles (September 2019), COVID-19 (December 2021), history of enteritis, restrictive lung disease, history of ventricular tachycardia, GERD, fibromyalgia, hypercholesterolemia and hypertension who presented with low
oxygen levels. Patient had seen her PCP on 02/17 and was COVID + flu negative. Patient endorsed shortness of breath with a productive cough. She reports that she was having URI symptoms initially with cough and congestion several days prior to
arrival which progressed. Patient was recently prescribed Augmentin by her PCP on 02/15 but her symptoms did not improve despite this. She is on chronic prednisone at 10 mg daily in the setting of PMR. In the ER she was afebrile with temperature
97.8 �F, pulse rate 79, respiratory rate 18, BP 133/64 and saturating 94% on room air. Pertinent labs showed leukocytosis to 17.2, Hb 10.2, sodium 125, chloride 94, glucose 199, slightly elevated LFTs, and urine sodium 72. Patient was flu swab
negative and COVID-19 antigen negative. CXR showed no acute cardiopulmonary process. In the ER, she was given 1 L NS 0.9%, Zofran, DuoNebs, Decadron and Zithromax. She was admitted to the hospitalist service for further care, and now pulmonary
service consulted for additional management/recommendations.
Chronic conditions GI ASST: Chronic HFpEF, mitral valve regurgitation, pulmonary hypertension (PASP: 40 mmHg per TTE on 01/27/2025), GERD, fibromyalgia, hypercholesterolemia, diverticulosis, history of pneumococcal pneumonia (2001), history of
gastritis, IBS, hypertension, sciatica, osteoporosis, restrictive lung disease, frequent bouts of bronchitis, history of VT, history of sleep apnea, history of lichen planus (affecting the mouth), history of recurrent UTI, eczema, history of
shingles (September 2019), history of COVID-19 (December 2021), history of bronchiectasis, history of enteritis
Impression:
#Acute respiratory failure with hypoxia due to acute bronchitis with URI leading to acute bronchiectasis exacerbation
#Acute pulmonary non-CF bronchiectasis � CT on 09/02/2024 shows multifocal areas of mucoid impaction in the bronchioles with improved opacities along the minor fissures bilaterally compared to prior CTA chest in September 2018, with a consolidation in
RML, and bronchiectasis in the subpleural michelle-medial lingula + RML with mild linear opacities in the posteromedial lower lobes (L >R); on prior CT chest from August 2017 there was also a focal area of bronchiectasis within the lingula with
scattered small nodular opacities, suggestive of chronic bronchitis/bronchiolitis in the setting of possible small airway disease
#Chronic anemia
#Chronic hyponatremia (now worse as baseline is usually: 134�137)
#Iron deficiency anemia
#Transaminitis (mild)
#Abnormal TFTs with significantly low TSH and normal free T4, due to subclinical hyperthyroidism vs TSH suppression due to illness
#PMR on chronic prednisone (follows with rheumatology)
#History of restrictive lung disease with moderate gas exchange capacity defect; no evidence of COPD (most recent PFTs 09/01/2018 with T% predicted, post�BD FVC: 76%, DLCO: 55%)
Plan:
- Bronchiectasis exacerbation-tracheobronchitis. Chest x-ray is clear.
- Transition to prednisone 30 mg and decrease by 10 mg every 72 hours to baseline-she is on 10 mg of prednisone for PMR at home.
- Infectious disease on-case discussed.
- Legionella + strep pneumoniae urine antigens are both negative
- Trend WBC and monitor temperature curve-improved.
- Respiratory culture positive for E. coli. Multidrug resistant-ESBL.
- In discussions with daughters apparently in 2022 she has similar bacteria.? She was told she was colonized-unable to verify. In general has 1 exacerbation per year.
- Started on Ertapenem 02/21/2025- to complete 1-14d of ABX IV at home.
-
Not bronchospastic on exam. Overall feels that symptoms are improving.
Continues to have phlegm production-improving
Completed to have intermittent rhonchi. Not bronchospastic
- Supportive care with mucolytics (mucinex)
- Continue DuoNebs TID with nebulized 3% NS BID (which she takes at home BID) to assist with expectoration; use prn nebs for breakthrough symptoms
- Acapella
- Continue vest therapy
- Up OOB as tolerated as light activity/ambulation will also help her mobilize secretions better
Previous history:
- Of note, based on prior PFT studies, she has no evidence of an obstructive lung defect, hence she does not have COPD
- I personally reviewed her CT chest imaging and compared imaging studies as recent as August 2024 to studies as distant as October 2007
- She has multifocal areas of mucoid impaction in her bronchioles with persistent subpleural bronchiectasis in the RML + lingula, worsened compared to imaging in 2018, and there is evidence of chronic bronchitis/bronchiolitis with possible small
airways disease; it appears that she has had RML/lingula bronchiectasis since as early as October 2007
- It appears that throughout the years, her subpleural bronchiectatic disease in the lingula + RML have persisted and has been slowly worsening
- Previous sputum culture in September 2018 was positive for Aspergillus fumigatus - -> she was reportedly treated for this at [facility] (per the patient and daughters x2, present during this encounter)
- Recent outpatient AFB sputum Cx shows NGTD ([facility] - collected 02/15)
- Prior CTD/ANCA panel was negative; prior IgE WNL at 37 in September 2018
- No evidence of an acute process on CXR, as it appears stable compared to prior CXR in August 2024
- Not on oxygen supplementation.
- Incentive spirometer encouraged q1hr while awake
- DVT ppx: LMWH
Case discussed with Dr. Perez. Transitioned to meropenem. Likely will require 10 days of antibiotics.
Defer antibiotics to infectious disease.
Dr. Fitch updated 2 daughters at the bedside 02/21/2025.
She previously followed with our office via Dr. Jama � has not seen us since August 2018. She now follows with Pulmonology through [facility] via Dr. Joseph Sorenson. Next appointment is next month. She is welcome to also follow with us in [facility] office
going forward if she wishes - I will leave my office info in her chart so she can decide herself.
To be set up for Home IV ABX infusion.
Hopefully DC soon
Data:
CXR 02/17/2025: Stable radiographic appearance. No evidence of active cardiopulmonary disease.
CTA chest/abdomen/pelvis 09/02/2024:
No evidence of central pulmonary embolism.
Areas of opacity in the right upper lobe, left upper lobe and right middle lobe overall smaller in volume in comparison to remote prior CTA chest, most likely representing some residual areas of scarring.
Some prominent interstitial markings throughout the lungs bilaterally, predominantly peripherally which may all be chronic although acute superimposed interstitial edema/pneumonitis superimposed upon some chronic interstitial changes cannot be
excluded. Some changes of bronchiectasis also suspected. No pneumothorax or pleural effusion.
Some nondistended fluid-filled loops of small bowel, nonspecific. Cannot exclude mild small bowel enteritis.
Colonic diverticulosis. No intestinal obstruction or free air.
Subcentimeter low-attenuation left renal lesion too small to characterize.
Pelvic pessary in position.
Subjective Data
-
Date of Service:
Date of Service: February 23, 2025
Chief Complaint: Pulmonary Follow Up
Subjective:
No new complaints.
Cough and intermittent phlegm.
Denies hemoptysis
Denies worsening SOB
Review of Systems
Cardiopulmonary: Cough and Sputum Production
Objective Data
Data Reviewed
Vital Signs / I&O / Oxygen:
Vital Signs
Temp Pulse Resp BP Pulse Ox
98.2 F 73 16 138/76 94
02/23/25 15:30 02/23/25 15:30 02/23/25 15:30 02/23/25 15:30 02/23/25 15:30
Intake and Output
02/22/25 02/23/25 02/24/25
06:59 06:59 06:59
Intake Total 480 / 480 1080 / 1080
Balance 480 / 480 1080 / 1080
SaO2 94
Nasal Cannula flow liters per 2
minute
Physical Exam
General: Respiratory Distress (n), Comfortable, Chills (n), Sweats (n) and Other (elderly female, in NAD with no conversational dyspnea)
HEENT: Normocephalic and Anicteric
Cardiovascular: S1-S2 and Peripheral Edema (n)
Respiratory: Wheeze (none), Crackles, Rhonchi (Bilateral), Non-Labored Respirations and Other (diminished breath sounds bilaterally)
GI: Soft, Non Distended, Non Tender and Normal Bowel Sounds
Neurology: Awake, Alert, Oriented and Tremors (n)
Skin: Warm, Dry, Cyanosis (n) and Jaundice (n)
Labs/Micro/Reports
Lab Data
02/22/25 05:37
02/22/25 05:37
Microbiology
02/18/25 20:22 Blood/Venous Blood Culture - Preliminary
No Growth in 4 days- Final report to follow
02/18/25 20:27 Blood/Venous Blood Culture - Preliminary
No Growth in 4 days- Final report to follow
02/18/25 20:09 Sputum Respiratory Culture - Final
Escherichia coli - ESBL
02/18/25 20:09 Sputum Gram Stain - Final
[2025-02-23] MEDS: LOVENOX SC (17:36)
[2025-02-23 17:49] LABS: Glucose - Point of Care 165 mg/dl (70-99)
[2025-02-23 17:49] LABS: Glucose - Point of Care 145 mg/dl (70-99)
[2025-02-23] MEDS: SODIUM CHLORIDE 3% FOR INHALATION 1 VIAL INH (19:49)
[2025-02-23] MEDS: DUONEB 3 ML INH (19:49)
[2025-02-23 21:21] LABS: Glucose - Point of Care 162 mg/dl (70-99)
[2025-02-23] MEDS: NEURONTIN 100 MG PO (22:55)
[2025-02-23] MEDS: LIPITOR 10 MG PO (22:56)
[2025-02-23] MEDS: TYLENOL 650 MG PO (22:58)
[2025-02-23] MEDS: RESTORIL 7.5 MG PO (22:58)
[2025-02-23 23:42] VITALS: BP 124/65
--- NOTE | 2025-02-23 23:45 | PTCARENOTE ---
Pt is AAOx3, self, rings appropriately. Bed locked, in lowest position, call victor in reach. Pt refused bed alarm. Pt education provided.
[2025-02-24 04:35] LABS: Hematocrit 30.4 % (37.0-47.0); Hemoglobin 10.6 g/dL (12.0-16.0); Mean Corp Hgb Conc. 34.9 g/dL (33.0-37.0); Mean Corpuscular Volume 93.3 fL (81.0-99.0); Platelet Count 425 10^3/uL (130-400); Red Cell Dist. Width 14.7 % (11.5-14.5)
[2025-02-24 05:16] LABS: Blood Urea Nitrogen 20 mg/dl (7-17); Calcium 8.2 mg/dl (8.4-10.2); Carbon Dioxide 29 mmol/L (22-30); Chloride 99 mmol/L (98-107); Estimated Creatinine Clearance 60 ml/min; Glucose 88 mg/dl (70-99); Potassium 3.8 mmol/L (3.5-5.1); Sodium 131 mmol/L (135-145); eGFR > 60.00
[2025-02-24 05:40] VITALS: BMI 23.9
[2025-02-24] MEDS: SODIUM CHLORIDE 3% FOR INHALATION 1 VIAL INH ×2 (07:27→19:17)
[2025-02-24] MEDS: DUONEB 3 ML INH ×3 (07:27→19:16)
[2025-02-24 07:48] VITALS: BP 137/75
--- NOTE | 2025-02-24 07:59 | W.PN.HOSP.TC ---
Today's Communication/Plan
-
Discharge today
Assessment / Plan
Assessment / Plan
Physical Exam
General: Not in acute distress
HEENT: Normocephalic
Respiratory: Bilateral Rhonchi. Decreased breath sounds bilaterally.
Cardiac: Regular Rhythm and S1/S2
GI: Soft, Nontender, Nondistended and Normal Bowel Sounds
Musculoskeletal: No Cyanosis and No Edema
Skin: Warm. Dry.
Neuro: Awake, Alert, Oriented, AO x 3 and No Motor Deficits
Psych: Calm
Impression:
84yo F with recurrent pneumonia 2/2 bronchiectatic disease, PMR on chronic Prednisone, Hx of fungal pneumonia, SSS s/p PPM, SVT, DM, Anxiety, HLD, HTN came with 6 days of worsening cough with yellow-colored sputum. Found to have exacerbation of
bronchiectatic disease with COPD exacerbation and hyponatremia.
Scheduled for appt in [facility] pulmonology dept with in February.
Assessment/plan:
#Acute hypoxic respiratory failure due to acute bronchitis with URI leading to acute bronchiectasis exacerbation
#NO COPD
#Recovery of ESBL E. coli from sputum
#Acute pulmonary non-CF bronchiectasis
#Bronchiectasis exacerbation-tracheobronchitis
#History of restrictive lung disease with moderate gas exchange capacity defect; no evidence of COPD
Cefepime switched to ertapenem on 02/21/25 as per sputum Cx growing ESBL E.coli - ID consult
Continue outpatient Ertapenem
COVID-19 and Influenza PCR neg
Legionella and S/pneumonia urinary Ag neg
chest PT
Encourage cough, Mucinex, hypertonic saline
Decrease Prednisone to 20 mg starting on 02/25/25 - decrease to Prednisone 10 mg daily on 02/28/25 (Prednisone 10 mg daily is chronic dose for her PMR)
Continue DuoNebs TID with nebulized 3% NS BID (which she takes at home BID); use prn nebs for breakthrough symptoms-she has at home
frequent repositioning in bed to allow mucus drainage
Continue Acapella and Incentive Spirometer
Continue Vest Therapy at home
Pulm consult
Watch for hemoptysis
wean off O2
Sputum Cx with E.coli - possible aspiration - patient declined VSE
Be sure to follow-up outpatient with Dr. Joseph Sorenson
#Chronic Hyponatremia
-Stable
-Recheck CMP outpatient
#Mild transaminitis
improving
hepatitis panel neg
#Hyperthyroidism, subclinical
#Abnormal Thyroid Function Tests with significantly low TSH and normal free T4, due to subclinical hyperthyroidism vs TSH suppression due to illness
repeat TFT in 2-3 weeks with PCP
#Type 2 Diabetes Mellitus with neuropathy
-AccuCheck, Insulin SS, DM diet
-Diabetic Diet
#Reactive thrombocytosis
-Recheck CBC outpatient
#Anxiety Disorder
#Essential Hypertension
#SSS s/p PPM
#Insomnia
#Hyperlipidemia
cont home meds
#Chronic Anemia
#Iron Deficiency Anemia
-Hgb stable
-Check iron studies again outpatient
#Polymyalgia Rheumatica on chronic prednisone (follows with rheumatology)
#History of Congestive Heart Failure?
#History of Cardiomyopathy?
CODE STATUS: Full code
DVT prophylaxis: Lovenox
Diet: Diabetic diet
Disposition: Continue ertapenem --> arranged for home infusion
More than 30 minutes spent in discharge including
Final examination of the patient
Summarizing hospital stay
Instructions for continuing care to all relevant caregivers
Preparation of discharge records, prescriptions, and referral forms
Total time spent (in minutes): 41
Anticipated Discharge: Today
Subjective/Interval History
-
Date of Service: February 24, 2025
Patient was seen and examined. She still has cough, but overall is doing better.
Objective Data
-
Labs:
Laboratory Results
02/24/25
04:14
WBC 14.0 H
Hgb 10.6 L
Hct 30.4 L
Plt Count 425 H
Sodium 131 L
Potassium 3.8
Chloride 99
Carbon Dioxide 29
BUN 20 H
Creatinine 0.6
Glucose 88
Calcium 8.2 L
Vital Signs:
Vital Signs
Temp Pulse Resp BP Pulse Ox
98.2 F 72 18 124/65 96
02/23/25 23:42 02/24/25 07:29 02/24/25 07:29 02/23/25 23:42 02/24/25 07:29
I&O
02/23/25 02/24/25 02/25/25
06:59 06:59 06:59
Intake Total 1080 / 1080 1605 / 1605
Balance 1080 / 1080 1605 / 1605
[2025-02-24 08:32] LABS: Albumin 3.3 g/dl (3.5-5.0)
[2025-02-24 09:32] LABS: Glucose - Point of Care 74 mg/dl (70-99)
[2025-02-24] MEDS: NOVOLOG FLEXPEN-LOW RESISTANCE SC ×2 (09:47→13:13)
[2025-02-24] MEDS: COZAAR 25 MG PO (09:54)
[2025-02-24] MEDS: CARDIZEM CD 180 MG PO ×2 (09:55→19:48)
[2025-02-24] MEDS: DELTASONE 30 MG PO (09:55)
[2025-02-24] MEDS: COREG 6.25 MG PO ×2 (09:57→19:48)
[2025-02-24] MEDS: MUCINEX 1200 MG PO ×2 (09:57→19:48)
[2025-02-24] MEDS: PEPCID 20 MG PO ×2 (09:57→19:48)
[2025-02-24] MEDS: MYCOSTATIN ORAL SUSPENSION 5 ML PO ×4 (09:58→21:25)
[2025-02-24] MEDS: LACTAID 1 CAPSULE PO ×3 (09:58→17:47)
[2025-02-24] MEDS: CYMBALTA DELAYED RELEASE 30 MG PO (10:00)
[2025-02-24] MEDS: OCEAN, SALINE MIST 2 SPRAYS NASAL ×4 (10:00→21:26)
[2025-02-24 11:40] LABS: Glucose - Point of Care 138 mg/dl (70-99)
[2025-02-24] MEDS: METAMUCIL, KONSYL 1 PACKET PO (11:53)
--- NOTE | 2025-02-24 13:23 | W.PN.PUL3 ---
Today's Communication / Plan
-
Discharge planning
Continue secretion clearance interventions
Prednisone taper
IV antibiotics at home complete total of 10 days
Patient to follow-up at [facility] she has a pulmonary doctor already.
Sign off
Assessment
-
Assessment: 84-year-old female with a past medical history of non-cystic fibrosis bronchiectasis, chronic HFpEF, mitral valve regurgitation, pulmonary hypertension, history of recurrent bronchitis/pneumonia, history of sleep apnea, lichen planus
(affecting her mouth), recurrent UTI, shingles (September 2019), COVID-19 (December 2021), history of enteritis, restrictive lung disease, history of ventricular tachycardia, GERD, fibromyalgia, hypercholesterolemia and hypertension who presented with low
oxygen levels. Patient had seen her PCP on 02/17 and was COVID + flu negative. Patient endorsed shortness of breath with a productive cough. She reports that she was having URI symptoms initially with cough and congestion several days prior to
arrival which progressed. Patient was recently prescribed Augmentin by her PCP on 02/15 but her symptoms did not improve despite this. She is on chronic prednisone at 10 mg daily in the setting of PMR. In the ER she was afebrile with temperature
97.8 �F, pulse rate 79, respiratory rate 18, BP 133/64 and saturating 94% on room air. Pertinent labs showed leukocytosis to 17.2, Hb 10.2, sodium 125, chloride 94, glucose 199, slightly elevated LFTs, and urine sodium 72. Patient was flu swab
negative and COVID-19 antigen negative. CXR showed no acute cardiopulmonary process. In the ER, she was given 1 L NS 0.9%, Zofran, DuoNebs, Decadron and Zithromax. She was admitted to the hospitalist service for further care, and now pulmonary
service consulted for additional management/recommendations.
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
gastritis, IBS, hypertension, sciatica, osteoporosis, restrictive lung disease, frequent bouts of bronchitis, history of VT, history of sleep apnea, history of lichen planus (affecting the mouth), history of recurrent UTI, eczema, history of
shingles (September 2019), history of COVID-19 (December 2021), history of bronchiectasis, history of enteritis
Impression:
#Acute respiratory failure with hypoxia due to acute bronchitis with URI leading to acute bronchiectasis exacerbation
#Acute pulmonary non-CF bronchiectasis � CT on 09/02/2024 shows multifocal areas of mucoid impaction in the bronchioles with improved opacities along the minor fissures bilaterally compared to prior CTA chest in September 2018, with a consolidation in
RML, and bronchiectasis in the subpleural michelle-medial lingula + RML with mild linear opacities in the posteromedial lower lobes (L >R); on prior CT chest from August 2017 there was also a focal area of bronchiectasis within the lingula with
scattered small nodular opacities, suggestive of chronic bronchitis/bronchiolitis in the setting of possible small airway disease
#Chronic anemia
#Chronic hyponatremia (now worse as baseline is usually: 134�137)
#Iron deficiency anemia
#Transaminitis (mild)
#Abnormal TFTs with significantly low TSH and normal free T4, due to subclinical hyperthyroidism vs TSH suppression due to illness
#PMR on chronic prednisone (follows with rheumatology)
#History of restrictive lung disease with moderate gas exchange capacity defect; no evidence of COPD (most recent PFTs 09/01/2018 with T% predicted, post�BD FVC: 76%, DLCO: 55%)
Plan:
- Bronchiectasis exacerbation-tracheobronchitis. Chest x-ray is clear.
- Decrease prednisone to 20 mg-decrease by 10 mg in 72 hours and continue as this is her baseline for PMR at home.
- Infectious disease on-case discussed.
- Legionella + strep pneumoniae urine antigens are both negative
- Trend WBC and monitor temperature curve-improved.
- Respiratory culture positive for E. coli. Multidrug resistant-ESBL.
- In discussions with daughters apparently in 2022 she has similar bacteria.? She was told she was colonized-unable to verify. In general has 1 exacerbation per year.
- Started on Ertapenem 02/21/2025- to complete 1-14d of ABX IV at home.
-
Not bronchospastic on exam. Overall feels that symptoms are improving.
Continues to have phlegm production-improving
Completed to have intermittent rhonchi. Not bronchospastic
- Supportive care with mucolytics (mucinex)
- Continue DuoNebs TID with nebulized 3% NS BID (which she takes at home BID) to assist with expectoration; use prn nebs for breakthrough symptoms-she has at home.
- Acapella-she has at home
- Continue vest therapy-she has at home
- Up OOB as tolerated as light activity/ambulation will also help her mobilize secretions better
Previous history:
- Of note, based on prior PFT studies, she has no evidence of an obstructive lung defect, hence she does not have COPD
- I personally reviewed her CT chest imaging and compared imaging studies as recent as August 2024 to studies as distant as October 2007
- She has multifocal areas of mucoid impaction in her bronchioles with persistent subpleural bronchiectasis in the RML + lingula, worsened compared to imaging in 2018, and there is evidence of chronic bronchitis/bronchiolitis with possible small
airways disease; it appears that she has had RML/lingula bronchiectasis since as early as October 2007
- It appears that throughout the years, her subpleural bronchiectatic disease in the lingula + RML have persisted and has been slowly worsening
- Previous sputum culture in September 2018 was positive for Aspergillus fumigatus - -> she was reportedly treated for this at [facility] (per the patient and daughters x2, present during this encounter)
- Recent outpatient AFB sputum Cx shows NGTD ([facility] - collected 02/15)
- Prior CTD/ANCA panel was negative; prior IgE WNL at 37 in September 2018
- No evidence of an acute process on CXR, as it appears stable compared to prior CXR in August 2024
- Not on oxygen supplementation.
- Incentive spirometer encouraged q1hr while awake
- DVT ppx: LMWH
Case discussed with Dr. Perez. Transitioned to meropenem. Likely will require 10 days of antibiotics.
Defer antibiotics to infectious disease.
Dr. Fitch updated 2 daughters at the bedside 02/21/2025.
She previously followed with our office via Dr. Jama � has not seen us since August 2018. She now follows with Pulmonology through [facility] via Dr. Joseph Sorenson. Next appointment is next month. She is welcome to also follow with us in [facility] office
going forward if she wishes - I will leave my office info in her chart so she can decide herself.
To be set up for Home IV ABX infusion.
No additional pulmonary recommendation
Agree with discharge plan
Data:
CXR 02/17/2025: Stable radiographic appearance. No evidence of active cardiopulmonary disease.
CTA chest/abdomen/pelvis 09/02/2024:
No evidence of central pulmonary embolism.
Areas of opacity in the right upper lobe, left upper lobe and right middle lobe overall smaller in volume in comparison to remote prior CTA chest, most likely representing some residual areas of scarring.
Some prominent interstitial markings throughout the lungs bilaterally, predominantly peripherally which may all be chronic although acute superimposed interstitial edema/pneumonitis superimposed upon some chronic interstitial changes cannot be
excluded. Some changes of bronchiectasis also suspected. No pneumothorax or pleural effusion.
Some nondistended fluid-filled loops of small bowel, nonspecific. Cannot exclude mild small bowel enteritis.
Colonic diverticulosis. No intestinal obstruction or free air.
Subcentimeter low-attenuation left renal lesion too small to characterize.
Pelvic pessary in position.
Subjective Data
-
Date of Service:
Date of Service: February 24, 2025
Chief Complaint: Pulmonary Follow Up
Subjective:
Ambulating around the otoole without difficulties
Continues to have intermittent coughing but able to clear secretions
Appetite is adequate
Denies swallowing problem
Objective Data
Data Reviewed
Vital Signs / I&O / Oxygen:
Vital Signs
Temp Pulse Resp BP Pulse Ox
98.1 F 81 16 137/75 94
02/24/25 07:48 02/24/25 07:48 02/24/25 07:48 02/24/25 07:48 02/24/25 07:48
Intake and Output
02/23/25 02/24/25 02/25/25
06:59 06:59 06:59
Intake Total 1080 / 1080 1605 / 1605
Balance 1080 / 1080 1605 / 1605
SaO2 94
Nasal Cannula flow liters per 2
minute
Physical Exam
General: Respiratory Distress (n), Comfortable, Chills (n), Sweats (n) and Other (elderly female, in NAD with no conversational dyspnea)
HEENT: Normocephalic and Anicteric
Cardiovascular: S1-S2 and Peripheral Edema (n)
Respiratory: Wheeze (none), Crackles, Rhonchi (Bilateral), Non-Labored Respirations and Other (diminished breath sounds bilaterally)
GI: Soft, Non Distended, Non Tender and Normal Bowel Sounds
Neurology: Awake, Alert, Oriented and Tremors (n)
Skin: Warm, Dry, Cyanosis (n) and Jaundice (n)
Labs/Micro/Reports
Lab Data
02/24/25 04:14
02/24/25 04:14
Microbiology
02/18/25 20:22 Blood/Venous Blood Culture - Final
No Growth - Final Report
02/18/25 20:27 Blood/Venous Blood Culture - Final
No Growth - Final Report
--- NOTE | 2025-02-24 13:46 | W.PN.ID1 ---
Date of Service
Date of Service: February 24, 2025
Today's Communication
Continue ertapenem (d#4) in the treatment of recovered ESBL E. coli.
Follow up with pulmonary
Assessment / Plan
Bronchitis +/- early PNA
Recovery of ESBL E. coli from sputum
Exacerbation of bronchiectasis
Leukocytosis
Anemia
Hyponatremia
CHF
Cardiomyopathy
GERD
HTN
HLD
Bronchiolitis
Sleep apnea
Recommendations:
blood cultures finalized negative
Continue ertapenem (d#4) in the treatment of recovered ESBL E. coli. Would complete a 10-14 day course.
Prescription placed on paper chart by Dr Perez
Midline
Follow up with pulmonary
����������������������������������������������������������
Chief Complaint
-: Other (Exac bronchiectasis)
Subjective / Review of Systems
afebrile
bp stable
no events
productive cough and wheezing ongoing
Vital Signs / Physical Exam
Vital Signs
Vital Signs
Temp Pulse Resp BP Pulse Ox
98.1 F 81 16 137/75 94
02/24/25 07:48 02/24/25 07:48 02/24/25 07:48 02/24/25 07:48 02/24/25 07:48
Physical Exam
Constitutional: No Acute Distress
Cardiovascular: Regular Rate and S1/S2; Negative Murmur or Rub
Pulmonary: Clear, Symmetric, Wheezes and Non Labored; Negative Rales
Gastrointestinal: Soft, Non Tender, Non Distended and Normal Bowel Sounds
Skin: Warm and Dry; Negative Rash or Jaundice
Lines: Other (midline)
Objective Data
Lab Data
Lab Results
02/24/25 04:14
02/24/25 04:14
Estimated Creat Clear 60 ml/min 02/24/25 04:14
Total Bilirubin 0.5 mg/dl (0.2-1.3) 02/22/25 05:37
AST 22 U/L (14-36) 02/22/25 05:37
ALT 46 U/L (0-35) H 02/22/25 05:37
Alkaline Phosphatase 87 U/L (38-126) 02/22/25 05:37
Most recent labs reviewed.
Micro Results:
02/18/25 20:22 Blood Culture - Final
Blood/Venous No Growth - Final Report
02/18/25 20:27 Blood Culture - Final
Blood/Venous No Growth - Final Report
02/18/25 20:09 Respiratory Culture - Final
Sputum Escherichia coli - ESBL
Gram Stain - Final
02/18/25 12:02 Legionella Urinary Antigen - Final
Urine Negative for Legionella pneumophila Serogroup 1 antigen.
A negative result does not rule out the possiblity of
Legionella infection due to other serogroups or species of
Legionella. Clinical correlation is recommended.
Streptococcus pneumoniae Antigen (M - Final
Negative for Streptococcus pneumoniae antigen.
A negative result does not exclude infection with
Streptococcus pneumoniae. Clinical correlation is
recommended.
02/17/25 23:39 Influenza Types A & B ([facility]) - Final
Nasal Swab Negative for Influenza A & B, NAAT
Negative results must be combined with clinical observations
and patient history.
Nucleic Acid Amplification test (NAAT)performed on the
[employer] platform.
Respiratory Culture Final 02/18/2025
Few Escherichia coli - ESBL
Few Usual Respiratory Negrita
Organism 1 Escherichia coli - ESBL
1. Escherichia coli - ESBL
M.I.C. RX
--------- ---
Amoxicillin/Potas. Clavulanate 05/11 I
Ampicillin >16 R
Ampicillin/Sulbactam 16/8 I
Aztreonam >16 R
Cefazolin >16 R
Cefepime >16 R
Ceftazidime >16 R
Ceftriaxone >2 R
Ertapenem <=0.5 S
Ciprofloxacin >2 R
Gentamicin >8 R
Meropenem <=1 S
Piperacillin/Tazobactam <=8 S
Tetracycline >8 R
Tobramycin >8 R
Trimethoprim/Sulfamethoxazole >2/38 R
Imaging:
02/17/2025 CXR (2 view): scattered predominantly linear densities within both lungs, stable from exam in August 2024. No radiographic evidence for new parenchymal opacity. No evidence for pulmonary edema. Please see full dictation for additional
detail. Film personally viewed.
--- NOTE | 2025-02-24 14:52 | CM ---
Patient will discharge home tomorrow
Patient confirmed she will have a ride home tomorrow
Confirmed w/ [facility], delivery tomorrow at 2 pm and nursing will visit tomorrow afternoon
IMM verbally reviewed, copy provided, copy on chart
Patient made aware she will need to be home before 2 pm
Plan: Home tomorrow w/ [facility]
[2025-02-24 15:18] VITALS: BP 124/71
[2025-02-24] MEDS: INVANZ 60 MG IV (16:39)
[2025-02-24] MEDS: FLUSH (NSS) 1 FLUSH IV (16:39)
[2025-02-24 17:01] LABS: Glucose - Point of Care 175 mg/dl (70-99)
[2025-02-24] MEDS: NOVOLOG FLEXPEN-LOW RESISTANCE 1 UNITS SC (17:44)
[2025-02-24] MEDS: LOVENOX SC ×2 (17:47→17:53)
[2025-02-24 21:11] LABS: Glucose - Point of Care 147 mg/dl (70-99)
[2025-02-24] MEDS: RESTORIL 7.5 MG PO (21:25)
[2025-02-24] MEDS: LIPITOR 10 MG PO (21:25)
[2025-02-24] MEDS: NEURONTIN 100 MG PO (21:25)
[2025-02-24 23:00] VITALS: BP 126/77
[2025-02-25 06:00] VITALS: BMI 23.1
[2025-02-25] MEDS: DUONEB 3 ML INH ×2 (07:19→13:48)
[2025-02-25] MEDS: SODIUM CHLORIDE 3% FOR INHALATION 1 VIAL INH (07:19)
[2025-02-25 07:25] VITALS: BP 147/78
--- NOTE | 2025-02-25 08:05 | W.PN.HOSP.TC ---
Today's Communication/Plan
-
Discharge today
Assessment / Plan
Assessment / Plan
Physical Exam
General: Not in acute distress
HEENT: Normocephalic
Respiratory: Bilateral Rhonchi. Decreased breath sounds bilaterally.
Cardiac: Regular Rhythm and S1/S2
GI: Soft, Nontender, Nondistended and Normal Bowel Sounds
Musculoskeletal: No Cyanosis and No Edema
Skin: Warm. Dry.
Neuro: Awake, Alert, Oriented, AO x 3 and No Motor Deficits
Psych: Calm
Impression:
84yo F with recurrent pneumonia 2/2 bronchiectatic disease, PMR on chronic Prednisone, Hx of fungal pneumonia, SSS s/p PPM, SVT, DM, Anxiety, HLD, HTN came with 6 days of worsening cough with yellow-colored sputum. Found to have exacerbation of
bronchiectatic disease with COPD exacerbation and hyponatremia.
Scheduled for appt in [facility] pulmonology dept with in February.
Assessment/plan:
#Acute hypoxic respiratory failure due to acute bronchitis with URI leading to acute bronchiectasis exacerbation
#NO COPD
#Recovery of ESBL E. coli from sputum
#Acute pulmonary non-CF bronchiectasis
#Bronchiectasis exacerbation-tracheobronchitis
#History of restrictive lung disease with moderate gas exchange capacity defect; no evidence of COPD
Cefepime switched to ertapenem on 02/21/25 as per sputum Cx growing ESBL E.coli - ID consult
Continue outpatient Ertapenem
COVID-19 and Influenza PCR neg
Legionella and S/pneumonia urinary Ag neg
chest PT
Encourage cough, Mucinex, hypertonic saline
Decrease Prednisone to 20 mg starting on 02/25/25 - decrease to Prednisone 10 mg daily on 02/28/25 (Prednisone 10 mg daily is chronic dose for her PMR)
Continue DuoNebs TID with nebulized 3% NS BID (which she takes at home BID); use prn nebs for breakthrough symptoms-she has at home
frequent repositioning in bed to allow mucus drainage
Continue Acapella and Incentive Spirometer
Continue Vest Therapy at home
Pulm consult
Watch for hemoptysis
wean off O2
Sputum Cx with E.coli - possible aspiration - patient declined VSE
Be sure to follow-up outpatient with Dr. Joseph Sorenson
#Chronic Hyponatremia
-Stable
-Recheck CMP outpatient
#Mild transaminitis
improving
hepatitis panel neg
#Hyperthyroidism, subclinical
#Abnormal Thyroid Function Tests with significantly low TSH and normal free T4, due to subclinical hyperthyroidism vs TSH suppression due to illness
repeat TFT in 2-3 weeks with PCP
#Type 2 Diabetes Mellitus with neuropathy
-AccuCheck, Insulin SS, DM diet
-Diabetic Diet
#Reactive thrombocytosis
-Recheck CBC outpatient
#Anxiety Disorder
#Essential Hypertension
#SSS s/p PPM
#Insomnia
#Hyperlipidemia
cont home meds
#Chronic Anemia
#Iron Deficiency Anemia
-Hgb stable
-Check iron studies again outpatient
#Polymyalgia Rheumatica on chronic prednisone (follows with rheumatology)
#History of Congestive Heart Failure?
#History of Cardiomyopathy?
CODE STATUS: Full code
DVT prophylaxis: Lovenox
Diet: Diabetic diet
Disposition: Continue ertapenem --> arranged for home infusion
On 02/25/25, I spoke with both patient, over the patient's phone I spoke to patient's daughter Marylin, and I answered all of their questions and concerns to satisfaction.
More than 30 minutes spent in discharge including
Final examination of the patient
Summarizing hospital stay
Instructions for continuing care to all relevant caregivers
Preparation of discharge records, prescriptions, and referral forms
Total time spent (in minutes): 38
Anticipated Discharge: Today
Subjective/Interval History
-
Date of Service: February 25, 2025
Patient was seen and examined. She reported that she is feeling okay today, she denied any new symptoms or complaints.
Objective Data
-
Vital Signs:
Vital Signs
Temp Pulse Resp BP Pulse Ox
98.5 F 80 18 126/77 94
02/24/25 23:00 02/25/25 07:26 02/25/25 07:26 02/24/25 23:00 02/25/25 07:26
I&O
02/24/25 02/25/25 02/26/25
06:59 06:59 06:59
Intake Total 1605 / 1605 850 / 850
Balance 1605 / 1605 850 / 850
[2025-02-25 08:14] LABS: Glucose - Point of Care 110 mg/dl (70-99)
[2025-02-25] MEDS: NOVOLOG FLEXPEN-LOW RESISTANCE SC ×2 (08:33→12:27)
[2025-02-25] MEDS: DELTASONE 20 MG PO (08:35)
[2025-02-25] MEDS: PEPCID 20 MG PO (08:35)
[2025-02-25] MEDS: METAMUCIL, KONSYL 1 PACKET PO (08:35)
[2025-02-25] MEDS: LACTAID 1 CAPSULE PO ×2 (08:35→16:03)
[2025-02-25] MEDS: MYCOSTATIN ORAL SUSPENSION 5 ML PO ×2 (08:35→13:00)
[2025-02-25] MEDS: CYMBALTA DELAYED RELEASE 30 MG PO (08:35)
[2025-02-25] MEDS: MUCINEX 1200 MG PO (08:35)
[2025-02-25] MEDS: CARDIZEM CD 180 MG PO (08:40)
[2025-02-25] MEDS: COREG 6.25 MG PO (08:40)
[2025-02-25] MEDS: OCEAN, SALINE MIST 2 SPRAYS NASAL ×2 (08:41→13:00)
[2025-02-25] MEDS: COZAAR 25 MG PO (08:41)
--- NOTE | 2025-02-25 11:51 | CM ---
Addendum entered by Akila Cm 02/25/25 16:50:
spoke with daughter who expressed concerns about [facility] not having nursing on weekend. [facility] has had a telehealth appointment today with daughter and have offered her a visit at the infusion center in [facility]. Daughter stated that her
sister is bringing her mother home from the hospital. Daughter is concerned about using heprin vs no heprin as she feels she is getting conflicting information. CM sent tt to physician and nursing requesting assistance and call to patient daughter.
Original Note:
Patient seen at bedside and IMM signed and placed on chart. Delivery to patient home completed by [facility]. teaching occurred yesterday per [facility]. Plan is for patient to have dose today of IV antibiotic and daughter is requesting that the
telehealth visit scheduled for tomorrow be changed to an in person visit. CM left VM for [facility] and requested nurse and physician address patient daughter's questions. CM was notified that if patient daughter not willing to accept telehealth
visit patient would not be able to be discharged. CM updated physician and nurse and will continue to follow at discharge.
Plan; discharge to home with [facility] for medication.
[2025-02-25 12:23] LABS: Glucose - Point of Care 144 mg/dl (70-99)
[2025-02-25] MEDS: LACTAID PO (12:28)
[2025-02-25 15:20] VITALS: BP 129/77
[2025-02-25] MEDS: INVANZ 60 MG IV (16:03)
== END 2025-02-25 17:12 | disposition home health service (06) | DRG 190 ==
LOC: 4 WEST ACU 00:41
PROVIDERS: General Practice; Internal Medicine; ADMITTING PHYSICIAN Hospitalist; ATTENDING PHYSICIAN Hospitalist; CONSULT PHYSICIAN Internal Medicine Critical Care Medicine; EMERGENCY PHYSICIAN Emergency Medicine; OTHER PHYSICIAN Internal Medicine Infectious Disease
DX: J47.0 Bronchiectasis with acute lower respiratory infection (principal); J96.01 Acute respiratory failure with hypoxia; E22.2 Syndrome of inappropriate secretion of antidiuretic hormone; I50.32 Chronic diastolic (congestive) heart failure; Z16.12 Extended spectrum beta lactamase (ESBL) resistance; I11.0 Hypertensive heart disease with heart failure; M79.7 Fibromyalgia; D63.8 Anemia in other chronic diseases classified elsewhere; Z60.2 Problems related to living alone; J20.9 Acute bronchitis, unspecified; Z11.52 Encounter for screening for COVID-19; F41.9 Anxiety disorder, unspecified; M35.3 Polymyalgia rheumatica; D50.9 Iron deficiency anemia, unspecified; Z79.899 Other long term (current) drug therapy
CPT/HCPCS: 71046; 80048; 80053; 82040; 82248; 82607; 82728; 82746; 82962; 83036; 83540; 83550; 83615; 83935; 84300; 84439; 84443; 84550; 85025; 85027; 85045; 86704; 86706; 86803; 87040; 87070; 87071; 87186; 87205; 87340; 87449; 87502; 87811; 87899; 92526; 92610; 94640; 94667; 94668; 94669; 96361; 96374; 96375; 99285; J1335